=== PATIENT | male | born 1960 | race Caucasian/White ===

== ENCOUNTER 2016-07-27 04:35 | Observation (INO) | payer OTHER ==
[2016-07-27] MEDS ORDERED: LORazepam INJ* 2 MG/ML 1 ML VIAL IM ONE (04:52)
[2016-07-27 05:41] LABS: Urine Bilirubin Negative (Negative); Urine Glucose Negative (Negative); Urine Nitrite Negative (Negative)
[2016-07-27 05:43] LABS: Hematocrit 40 % (42-52); Mean Corpuscular HGB Conc 35 g/dl (31-36); Mean Corpuscular Hemoglobin 31 pg (27-31); Mean Corpuscular Volume 89 fL (80-94); Mean Platelet Volume 8 um3 (7.4-10.4); Red Blood Count 4.51 10^6/ul (4.0-5.4); Red Cell Distribution Width 13 % (10.5-15); White Blood Count 8.2 10^3/ul (3.5-10.8)
[2016-07-27 06:07] LABS: ALT 16 U/L (7-52); AST 16 U/L (13-39); Albumin 3.8 g/dL (3.2-5.2); Alkaline Phosphatase 61 U/L (34-104); Anion Gap 9 mmol/L (2-11); BUN/Creatinine Ratio 17.9 (8-20); Blood Urea Nitrogen 20 mg/dL (6-24); CO2 Carbon Dioxide 26 mmol/L (22-32); Calcium 9.7 mg/dL (8.6-10.3); Chloride 91 mmol/L (101-111); EGFR African American 87.5 (>60); EGFR Non-African American 68.1 (>60); Globulin 5.3 g/dL (2-4); Glucose 86 mg/dL (70-100); Potassium 3.6 mmol/L (3.5-5.0); Sodium 126 mmol/L (133-145); Total Protein 9.1 g/dL (6.4-8.9)
[2016-07-27 06:10] LABS: Benzodiazepine Urine Screen None Detected (None Detect)
[2016-07-27 06:20] LABS: Acetaminophen < 15 mcg/mL; Alcohol < 10 mg/dL (<10); Salicylate < 2.50 mg/dL (<30)
[2016-07-27 06:31] LABS: TSH (Thyroid Stimulating Horm) 2.25 mcIU/mL (0.34-5.60)
[2016-07-27] MEDS ORDERED: NS 0.9% 1000 ML* 1,000 ML IV SCH (08:00)
--- NOTE | 2016-07-27 08:38 | RAD ---
HISTORY: Altered mental status COMPARISONS: January 27, 2015 TECHNIQUE: Multiple contiguous axial CT scans were obtained of the head without intravenous contrast. FINDINGS: The study is limited by patient motion artifact. HEMORRHAGE/INFARCT: There is no hemorrhage or acute infarct. MASSES/SHIFT: There is no mass or shift. EXTRA-AXIAL SPACES: There are no extra-axial fluid collections. SULCI AND VENTRICLES: The sulci and ventricles are normal in size and position for the patient's stated age. CEREBRUM: There are no focal parenchymal abnormalities. BRAINSTEM: There are no focal parenchymal abnormalities. CEREBELLUM: There are no focal parenchymal abnormalities. VESSELS: The vessels are grossly normal. PARANASAL SINUSES: The paranasal sinuses are clear. ORBITS: The orbits are unremarkable. BONES AND SOFT TISSUE: No bone or soft tissue abnormalities are noted. OTHER: None IMPRESSION: NO ACUTE INTRACRANIAL PATHOLOGY.
--- NOTE | 2016-07-27 08:39 | RAD ---
HISTORY: Altered mental status COMPARISONS: January 27, 2015 VIEWS:1: Single frontal portable view of the chest at 8:10 AM FINDINGS: LINES AND TUBES: None. CARDIOMEDIASTINAL SILHOUETTE: The cardiomediastinal silhouette is normal for portable technique. PLEURA: The costophrenic angles are sharp. No pleural abnormalities are noted. LUNG PARENCHYMA: The lungs are clear. ABDOMEN: The upper abdomen is clear. There is no subphrenic gas. BONES AND SOFT TISSUES: No bone or soft tissue abnormalities are noted. IMPRESSION: NO ACTIVE CARDIOPULMONARY DISEASE.
--- NOTE | 2016-07-27 09:12 | ED ---
Lowell Zhang Adam, scribed for Toro Robledo MD on 07/27/16 at 0722 . Progress - Progress Note Progress Note: This patient was signed out to me by Dr. Johnson at 07:00. Apparently this pt has bipolar. He has been abusing dextromethorphan. They spoke with poison control and they requested to observe the pt for approximately 6 hours. Pt was given Ativan. 07:20 - Pt is currently somnolent. He is unable to tell us any history. VITAL SIGNS: Reviewed. GENERAL: Patient is a well developed and nourished who is very lethargic lying comfortable in the stretcher. He is unable to answer most question, heaver he wakes up in verbal stimulation, he seems to be very confused. Patient is not in any acute respiratory distress. HEAD AND FACE: No signs of trauma. No ecchymosis, hematomas or skull depressions. EYES: PERRLA, EOMI x 2 EARS: Hearing grossly intact. MOUTH: Oropharynx within normal limits. NECK: Supple, trachea is midline, no adenopathy, no JVD, no carotid bruit, no c- spine tenderness, neck with full ROM. No meningeal signs, no Kernig's or brudzinskis signs. CHEST: Symmetric, no tenderness at palpation LUNGS: Clear to auscultation bilaterally. No wheezing or crackles. CVS: Regular rate and rhythm, S1 and S2 present, no murmurs or gallops appreciated. ABDOMEN: Soft, non-tender. No signs of distention. No rebound no guarding, and no masses palpated. Bowel sounds are normal. EXTREMITIES: FROM in all major joints, no edema, no cyanosis or clubbing. NEURO: Alert not oriented. GCS 14 SKIN: Dry and warm CHEST X-RAY - IMPRESSION: NO ACTIVE CARDIOPULMONARY DISEASE. CT BRAIN - IMPRESSION: NO ACUTE INTRACRANIAL PATHOLOGY. Assessment and Plan This patient was signed out to me by Dr. Johnson at 07:00. He reports that the patient has been taking DExtromethorphan and it seems that he overdose in this substance. They have spoken to poison control and recommend observation for 6 hours and discharge patient home. However, when I examined the patient and review his blood work he is AMS and acute hyponatremia. Blood test are found within normal limits except for NA 126. CL 91. UA is negative, Utox positive for Phencyclidine and Cannabinoids. CXR : No acute cardiopulmonary disease. Head CT IMPRESSION: NO ACUTE INTRACRANIAL PATHOLOGY. EKG: NSR at 71 BPM w/o STEMI In the ED course he was given Ativan by Dr. Johnson. When I when to see patient he seems very confused, open his eyes in verbal stimulation but unable to answer any questions. Physical exam as above. Patient is hyponatremic, he was given Ativan and positive for Phencyclidine and Cannabinoids which possible contributed to his AMS. I discuss my physical exam, findings and test results with Dr. Cosme from the hospitalist services and she agrees to admit patient to his services. Patient is hemodynamically stable alert but not oriented. FINAL IMPRESSION: 1- Acute Mental Status Changes 2- Symptomatic Hyponatremia 3: Overdose 4: Polysubstance abuse. - EKG/XRAY/CT EKG: NSR - 08:02. [address] elevations. Course/Dx - Diagnoses Provider Diagnoses: 1- Acute Mental Status Changes, Symptomatic hyponatremia, Polysubstance abuse The documentation as recorded by the Lowell london Adam accurately reflects the service I personally performed and the decisions made by me, Toro Robledo MD.
[2016-07-27 15:38] LABS: BUN/Creatinine Ratio 16.5 (8-20); Calcium 9.3 mg/dL (8.6-10.3); EGFR African American 96.4 (>60); Potassium 3.8 mmol/L (3.5-5.0)
[2016-07-27] MEDS: NS 0.9% 1000 ML* 1,000 ML IV ONE (16:31)
--- NOTE | 2016-07-27 20:17 | HP ---
HOSPITAL MEDICINE HISTORY AND PHYSICAL: DATE OF ADMISSION: 07/27/16 PRIMARY CARE PHYSICIAN: Dr. Beatriz Tavarez. ATTENDING PHYSICIAN: Dr. Miquel Cosme* (dictation provided by Lianna Church NP) CHIEF COMPLAINT: Taking too much dextromethorphan and chlorpheniramine. HISTORY OF PRESENT ILLNESS: Mr. Lane is a 56-year-old male well with multiple inpatient psychiatric unit admissions for polysubstance abuse, depression, borderline personality disorder, and antisocial personality disorder with paranoid thoughts. Mr. Lane presented to the emergency room today, concerned that he was overly inebriated after taking 480 mg of dextromethorphan and 64 mg of chlorpheniramine. The patient reported hallucinations, slurred speech, and paranoia. He did not report any suicidal intention, but that he was trying to apparently get high. Per the report, the patient took the pills at 1700 hours on 07/26/16. In the emergency room, the patient was slow to respond, but was oriented x4. Mr. Lane was noted to have a low sodium at 126 on arrival. The rest of his labs was unremarkable except for the presence of phencyclidine and cannabinoids in his toxicology screen. His vital signs are stable. The Poison Control Center was called and they recommended that the patient be monitored for at least 6 hours for medication overdose. PAST MEDICAL HISTORY: 1. History of borderline personality disorder. 2. Polysubstance abuse. 3. Depression. 4. Antisocial personality disorder. MEDICATIONS: The patient is unable to provide medication list. Last medications known as of 01/04/16 were: 1. Aripiprazole 5 mg p.o. at bedtime. 2. Trazodone 150 mg p.o. at bedtime. ALLERGIES: No known drug allergies. FAMILY HISTORY: Unobtainable. SOCIAL HISTORY: Report of polysubstance abuse per the record. The patient is not able to participate adequately with my exam to provide me more information on this, although he does state he is not a smoker. REVIEW OF SYSTEMS: Unobtainable. PHYSICAL EXAMINATION GENERAL: Mr. Lane is lying in bed. He is in no acute distress. VITAL SIGNS: Temperature 99.2, heart rate 72, respiratory rate 14, O2 saturation 98% on room air, blood pressure 139/88. LUNGS: Clear to auscultation bilaterally with no accessory muscle use and good aeration. HEART: S1, S2. No murmur, rub, or gallop, and regular. ABDOMEN: Soft, nontender with bowel sounds positive x4. EXTREMITIES: No cyanosis or edema. NEURO: He appears drowsy, but he awakens to his name. He moves all extremities equally. There is no facial asymmetry or focal weakness. Extraocular movements are intact. The patient is not able to state where he is. When I then asked him his name, he states "school:, but then is able to state that his name is Kurtis Lane. He follows all commands. SKIN: Intact. DIAGNOSTIC STUDIES/LAB DATA: WBC 8.2, hemoglobin 14.0, hematocrit 40, platelet count 191. Sodium 126, potassium 3.6, chloride 91, serum bicarbonate 26, BUN 20, creatinine 1.12, glucose 86. TSH 2.25. Urine shows no evidence of infection. Tox screen is positive for phencyclidine and cannabinoids. Chest x-ray shows no acute intrathoracic process and brain CT is negative as well. ASSESSMENT AND PLAN: Mr. Lane is a 56-year-old male with a past medical history of polysubstance abuse, antisocial personality, and borderline personality disorder, who presents today to the hospital with complaint that he has taken a large amount of dextromethorphan and chlorpheniramine. Plans are for observation in the hospital overnight as the patient continues to have altered mental status and a low sodium at 126. Plans are as follows: 1. Hyponatremia: The patient has been provided with normal saline since his arrival. I am going to recheck his sodium at 1500 hours and then again in the a.m. We will adjust his IV fluids as needed based on clinical course. 2. Altered mental status. The patient is alert. I suspect his mental status changes are related to the dextromethorphan and chlorpheniramine. Again, Poison Control was contacted and they only recommended a 6-hour observation related to the drug overdose. We will continue to monitor him closely though given his concomitant low sodium. 3. DVT prophylaxis. Early mobility. DISPOSITION: To telemetry floor. TIME SPENT: Approximately 60 minutes was spent on the admission of this patient , more than half time spent with the patient at the bedtime reviewing the events leading up to this hospitalization, performing the physical examination, and reviewing my plan of care. LIANNA CHURCH NP CC: Dr. Beatriz Tavarez* [id number]/[facility] #: [id number] [facility] HOSPITALJayden
[2016-07-27] MEDS: NS 0.9% 1000 ML* 1,000 ML IV SCH (21:16)
[2016-07-28 05:09] LABS: BUN/Creatinine Ratio 17.1 (8-20); Calcium 9.1 mg/dL (8.6-10.3); EGFR African American 94.3 (>60); EGFR Non-African American 73.3 (>60); Potassium 4.1 mmol/L (3.5-5.0)
[2016-07-28] MEDS: NS 0.9% 1000 ML* 1,000 ML IV SCH (05:59)
[2016-07-28] MEDS: NS 0.9% 1000 ML* 1,000 ML IV ONE (10:26)
[2016-07-28 15:22] VITALS: BP 142/93
--- NOTE | 2016-07-28 16:13 | DCNOTE ---
Subjective Date of Service: 07/28/16 Interval History: Feels well. He took an entire box of dextrometophan (16 x 30 mg) to produce a "psychedelic high". He has done this before and said it last only about 5 hours. He id not depressed--he went for 2 job interviews that day. By Tuesday AM he was feeling poorly and called 911. Objective Active Medications: Sodium Chloride (Ns 0.9% 1000 Ml*) 1,000 mls @ 100 mls/hr IV PER RATE AMANDA Last Admin: 07/28/16 05:59 Dose: 100 mls/hr Vital Signs 07/27/16 07/27/16 07/28/16 19:28 23:36 03:02 Temperature 97.9 F 97.6 F 97.7 F Pulse Rate 72 55 58 Respiratory 16 16 20 Rate Blood Pressure 143/84 130/88 131/65 (mmHg) O2 Sat by Pulse 100 99 99 Oximetry 07/28/16 07/28/16 07/28/16 07:45 08:00 11:24 Temperature 97.9 F 97.2 F Pulse Rate 60 51 Respiratory 16 16 16 Rate Blood Pressure 138/87 144/93 (mmHg) O2 Sat by Pulse 99 100 Oximetry 07/28/16 14:45 Temperature 97.7 F Pulse Rate 59 Respiratory 16 Rate Blood Pressure 142/93 (mmHg) O2 Sat by Pulse 100 Oximetry Oxygen Devices in Use Now: None Appearance: Alert, partly up in bed. In good spirits. Looks comfortable. Eyes: No Scleral Icterus Ears/Nose/Mouth/Throat: Clear Oropharnyx, Mucous Membranes Moist Respiratory: Symmetrical Chest Expansion and Respiratory Effort, Clear to Auscultation, Clear to Percussion Cardiovascular: NL Sounds; No Murmurs; No JVD, RRR, No Edema, - Skin: No Rash or Ulcers, No Nodules or Sclerosis, - Neurological: Alert and Oriented x 3, NL Sensation Result Diagrams: 07/27/16 05:05 07/28/16 04:45 Assess/Plan/Problems-Billing Assessment: - Patient Problems (1) Overdose Current Visit: Yes Status: Acute Code(s): T50.901A - POISONING BY UNSP DRUG/ MEDS/BIOL SUBST, ACCIDENTAL, INIT SNOMED Code(s): 74934912 Comment: Not clear why he had a severe reaction to 480 mg dextromehtorphan when he has used the same dose in the past. He has no idea why he was positive for phencyclidine in his urine. He understands he is taking a big risk by abusing dextromethorphan. His wrapper caser was present for the discussion. Status and Disposition: Discharge now. Fup Dr. Mu Tavarez.
--- NOTE | 2016-07-28 21:22 | ED ---
Aiden Zhang Billy, scribed for Sam Johnson MD on 07/27/16 at 0557 . Substance Abuse/Use - HPI Summary HPI Summary: Patient is a 56 year-old male coming to [facility] after he took 16 tabs of [employer] brand cold and sinus medication, ingredients which include 30mg dextromethorphan and 4mg chlorpheniramine each. He states that he does this several times a month. However, he reports that he has hallucinations which are more severe than normal, and he believes that somebody has poisoned his food/ drink. Denies any EtOH today. Denies any sleep or appetite disturbance. - History Of Current Complaint Chief Complaint: EDOverdose Stated Complaint: OVERDOSE Time Seen by Provider: 07/27/16 04:36 Hx Obtained From: Patient Onset/Duration of Drug/ETOH Abuse: Hours Ingestion History: Type/Name Of Drug - cold sinus meds Overdose Characteristics: Oral Timing Of Abuse: Intermittent Severity Initially: Moderate Severity Currently: Moderate Character: Fearful Aggravating Factor(s): Nothing Alleviating Factor(s): Nothing Associated Signs And Symptoms: Paranoid Behavior - Allergies/Home Medications Allergies/Adverse Reactions: Allergies Allergy/AdvReac Type Severity Reaction Status Date / Time No Known Allergies Allergy Verified 07/27/16 04:48 PMH/Surg Hx/FS Hx/Imm Hx Cardiovascular History: Reports: Other Cardiovascular Problems/Disorders - unspecific cardiac issues per H+P Respiratory History: Denies: Hx Asthma, Hx Chronic Bronchitis Musculoskeletal History: Reports: Hx Back Problems - spondylosis, Other Musculoskeletal History - hx of spinal stenosis Neurological History: Reports: Hx Seizures - With ETOH detox --- reports has not drank in 5 years Psychiatric History: Reports: Hx Anxiety, Hx Attention Deficit Hyperactivity Disorder, Hx Depression, Hx Inpatient Treatment, Hx Community Mental Health Tx, Hx Suicide Attempt - 1999, Hx of Violent Episodes Against Others, Hx Substance Abuse Denies: Hx Eating Disorder, Hx Panic Disorder, Hx Post Traumatic Stress Disorder, Hx Schizophrenia, Hx Bipolar Disorder, Other Psychiatric Issues/ Disorders - Immunization History Date of Tetanus Vaccine: unk Date of Influenza Vaccine: never Infectious Disease History: No Infectious Disease History: Reports: Hx Hepatitis - b- Pt reports it might be a misdx Denies: Traveled Outside the [place] in Last 30 Days - Family History Known Family History: Positive: Other - Alcohol abuse Family History: No FHx schizophrenia - Social History Alcohol Use: None Substance Use Type: Reports: Marijuana, Other Substance Use Comment - Amount & Last Used: cough syrup Smoking Status (MU): Former Smoker Type: Cigarettes Have You Smoked in the Last Year: Yes - Smokes one cigareete a few times a year- last time Dec 2014 Review of Systems Negative: Fever, Chills Negative: Erythema Negative: Sore Throat, Ear Ache Negative: Chest Pain Negative: Shortness Of Breath, Cough Negative: Abdominal Pain, Vomiting, Nausea Negative: Myalgia, Edema Negative: Rash Psychological: Other - See HPI All Other Systems Reviewed And Are Negative: Yes Physical Exam - Summary Physical Exam Summary: Constitutional: Well-developed, Well-nourished, Alert. (-) Distressed Skin: Warm, Dry HENT: Normocephalic; Atraumatic Eyes: Conjunctiva normal Neck: Musculoskeletal ROM normal neck. (-) JVD, (-) Stridor, (-) Tracheal deviation Cardio: Rhythm regular, rate normal, Heart sounds normal; Intact distal pulses; The pedal pulses are 2+ and symmetric. Radial pulses are 2+ and symmetric. (-) Murmur Pulmonary/Chest wall: Effort normal. (-) Respiratory distress, (-) Wheezes, (-) Rales Abd: Soft, (-) Tenderness, (-) Distension, (-) Guarding, (-) Rebound Musculoskeletal: (-) Edema Lymph: (-) Cervical adenopathy Neuro: Alert, Oriented x3 Psych: Mood and affect Normal Triage Information Reviewed: Yes Vital Signs On Initial Exam: Initial Vitals Temp Pulse Resp BP Pulse Ox 99.1 F 69 18 147/100 98 07/27/16 04:38 07/27/16 04:38 07/27/16 04:38 07/27/16 04:38 07/27/16 04:38 Vital Signs Reviewed: Yes - [place] Coma Scale Coma Scale Total: 15 Diagnostics - Vital Signs Vital Signs Temp Pulse Resp BP Pulse Ox 07/27/16 05:13 12 07/27/16 04:47 99.1 F 69 18 147/100 100 07/27/16 04:38 99.1 F 69 18 147/100 98 - Laboratory Lab Results: Lab Results 07/27/16 07/27/16 07/27/16 Range/Units 05:05 05:05 05:05 WBC 8.2 (3.5-10.8) 10^3/ul RBC 4.51 (4.0-5.4) 10^6/ul Hgb 14.0 (14.0-18.0) g/dl Hct 40 L (42-52) % MCV 89 (80-94) fL MCH 31 (27-31) pg MCHC 35 (31-36) g/dl RDW 13 (10.5-15) % Plt Count 191 (150-450) 10^3/ul MPV 8 (7.4-10.4) um3 Neut % (Auto) 75.4 (38-83) % Lymph % (Auto) 15.1 L (25-47) % [place] % (Auto) 8.6 (1-9) % Eos % (Auto) 0.5 (0-6) % Baso % (Auto) 0.4 (0-2) % Absolute Neuts (auto) 6.2 (1.5-7.7) 10^3/ul Absolute Lymphs (auto) 1.2 (1.0-4.8) 10^3/ul Absolute Monos (auto) 0.7 (0-0.8) 10^3/ul Absolute Eos (auto) 0 (0-0.6) 10^3/ul Absolute Basos (auto) 0 (0-0.2) 10^3/ul Absolute Nucleated RBC 0.01 10^3/ul Nucleated RBC % 0.1 Sodium 126 L (133-145) mmol/L Potassium 3.6 (3.5-5.0) mmol/L Chloride 91 L (101-111) mmol/L Carbon Dioxide 26 (22-32) mmol/L Anion Gap 9 (2-11) mmol/L BUN 20 (6-24) mg/dL Creatinine 1.12 (0.67-1.17) mg/dL Est GFR ( Amer) 87.5 (>60) Est GFR (Non-Af Amer) 68.1 (>60) BUN/Creatinine Ratio 17.9 (8-20) Glucose 86 (70-100) mg/dL Calcium 9.7 (8.6-10.3) mg/dL Total Bilirubin 0.80 (0.2-1.0) mg/dL AST 16 (13-39) U/L ALT 16 (7-52) U/L Alkaline Phosphatase 61 (34-104) U/L Total Protein 9.1 H (6.4-8.9) g/dL Albumin 3.8 (3.2-5.2) g/dL Globulin 5.3 H (2-4) g/dL Albumin/Globulin Ratio 0.7 L (1-3) TSH 2.25 (0.34-5.60) mcIU/mL Urine Color Yellow Urine Appearance Clear Urine pH 6.0 (5-9) Ur Specific [place] 1.015 (1.010-1.030) Urine Protein Negative (Negative) Urine Ketones Trace H (Negative) Urine Blood Negative (Negative) Urine Nitrate Negative (Negative) Urine Bilirubin Negative (Negative) Urine Urobilinogen Negative (Negative) Ur Leukocyte Esterase Negative (Negative) Urine Glucose Negative (Negative) Urine Ascorbic Acid * H (Negative) Salicylates < 2.50 (<30) mg/dL Urine Opiates Screen (None Detect) Acetaminophen < 15 mcg/mL Ur Barbiturates Screen (None Detect) Ur Phencyclidine Scrn (None Detect) Ur Amphetamines Screen (None Detect) U Benzodiazepines Scrn (None Detect) Urine Cocaine Screen (None Detect) U Cannabinoids Screen (None Detect) Serum Alcohol < 10 (<10) mg/dL 07/27/16 Range/Units 05:05 WBC (3.5-10.8) 10^3/ul RBC (4.0-5.4) 10^6/ul Hgb (14.0-18.0) g/dl Hct (42-52) % MCV (80-94) fL MCH (27-31) pg MCHC (31-36) g/dl RDW (10.5-15) % Plt Count (150-450) 10^3/ul MPV (7.4-10.4) um3 Neut % (Auto) (38-83) % Lymph % (Auto) (25-47) % [place] % (Auto) (1-9) % Eos % (Auto) (0-6) % Baso % (Auto) (0-2) % Absolute Neuts (auto) (1.5-7.7) 10^3/ul Absolute Lymphs (auto) (1.0-4.8) 10^3/ul Absolute Monos (auto) (0-0.8) 10^3/ul Absolute Eos (auto) (0-0.6) 10^3/ul Absolute Basos (auto) (0-0.2) 10^3/ul Absolute Nucleated RBC 10^3/ul Nucleated RBC % Sodium (133-145) mmol/L Potassium (3.5-5.0) mmol/L Chloride (101-111) mmol/L Carbon Dioxide (22-32) mmol/L Anion Gap (2-11) mmol/L BUN (6-24) mg/dL Creatinine (0.67-1.17) mg/dL Est GFR ( Amer) (>60) Est GFR (Non-Af Amer) (>60) BUN/Creatinine Ratio (8-20) Glucose (70-100) mg/dL Calcium (8.6-10.3) mg/dL Total Bilirubin (0.2-1.0) mg/dL AST (13-39) U/L ALT (7-52) U/L Alkaline Phosphatase (34-104) U/L Total Protein (6.4-8.9) g/dL Albumin (3.2-5.2) g/dL Globulin (2-4) g/dL Albumin/Globulin Ratio (1-3) TSH (0.34-5.60) mcIU/mL Urine Color Urine Appearance Urine pH (5-9) Ur Specific [place] (1.010-1.030) Urine Protein (Negative) Urine Ketones (Negative) Urine Blood (Negative) Urine Nitrate (Negative) Urine Bilirubin (Negative) Urine Urobilinogen (Negative) Ur Leukocyte Esterase (Negative) Urine Glucose (Negative) Urine Ascorbic Acid (Negative) Salicylates (<30) mg/dL Urine Opiates Screen None detected (None Detect) Acetaminophen mcg/mL Ur Barbiturates Screen None detected (None Detect) Ur Phencyclidine Scrn Presumptive positive H (None Detect) Ur Amphetamines Screen None detected (None Detect) U Benzodiazepines Scrn None detected (None Detect) Urine Cocaine Screen None detected (None Detect) U Cannabinoids Screen Presumptive positive H (None Detect) Serum Alcohol (<10) mg/dL Result Diagrams: 07/27/16 05:05 07/28/16 04:45 Lab Statement: Any lab studies that have been ordered have been reviewed, and results considered in the medical decision making process. Course/Dx - Course Assessment/Plan: 56 y/o male coming to the ED after using OTC cold medication recreationally. Signed out to ED physician at shift change pending 6-hour observation. He will likely be discharged after this observation period. - Diagnoses Provider Diagnoses: 1- Acute Mental Status Changes, Symptomatic hyponatremia, Polysubstance abuse, OVERDOSE Discharge - Discharge Plan Condition: Improved Disposition: ADMITTED TO [facility] Disposition Comment: Signed out pending 6-hour observation period. The documentation as recorded by the Aiden london Billy accurately reflects the service I personally performed and the decisions made by , Sam Johnson MD.
--- NOTE | 2016-07-30 10:36 | DS ---
DISCHARGE SUMMARY: DATE OF ADMISSION: 07/27/16 DATE OF DISCHARGE: 07/28/16 HISTORY: This 56-year-old man was brought in for altered mental status. On 07/26/16, he lynne d gone to 2 job interviews, he had lost his job a few weeks prior. He stated that he was not depres sed. He takes this kind of thing in stride. About 5:00 p.m. he decided to take 480 mg of dextromet horphan. This would be an entire box of 16, 30 mg pills. He has done this before because it is psy chedelic high. He said it usually lasts about 5 hours. However in this case, he was quite altered for over 12 hours and was not sure what was going on. He was lethargic the first day. By the day o f discharge, he was completely back to his baseline. He seemed quite engaged and normal affect. Of note, his urine toxicology screen showed phencyclidine. He has no idea how he ingested phencyclidi ne but this probably on top of the dextromethorphan and possible other drugs including 64 mg of chlo rpheniramine accounted for his altered mental status. DISCHARGE DIAGNOSIS: Overdose due to a combination of dextromethorphan, chlorpheniramine and phency clidine. DISCHARGE MEDICATIONS: None. [id number]/[facility] #: [id number]
== END 2016-07-28 17:25 | disposition home or self-care (01) ==
LOC: ED 04:35 → MEDTELE 07:50 → MED 07-28 14:48
PROVIDERS: ADMIT Internal Medicine; ATTEND Internal Medicine
DX: T48.3X1A Poisoning by antitussives, accidental (unintentional), initial encounter (principal); T45.0X1A Poisoning by antiallergic and antiemetic drugs, accidental (unintentional), initial encounter; Y92.9 Unspecified place or not applicable; E87.1 Hypo-osmolality and hyponatremia; I44.4 Left anterior fascicular block; F60.3 Borderline personality disorder; F32.9 Major depressive disorder, single episode, unspecified; Z79.899 Other long term (current) drug therapy; Z87.891 Personal history of nicotine dependence
CPT/HCPCS: 36415; 70450; 71010; 80048; 80053; 80307; 80320; 80329; 81003; 84300; 84443; 85025; 93005; 96361; 96374; 99284; G0378; G0480; J2060

== ENCOUNTER 2016-11-08 07:20 | Emergency (ER) | payer OTHER ==
[2016-11-08 08:40] VITALS: BP 102/64
[2016-11-08] MEDS ORDERED: Ketorolac INJ* 60 MG/2 ML VIAL IM ONE (08:45)
--- NOTE | 2016-11-09 08:26 | ED ---
Back Pain - HPI Summary HPI Summary: Patient presents with acute onset back pain x 2 days ago with no injury or trauma. Hx of back pain. He states he was unable to get through work d/t pain. He is ambulating well. Denies bladder or bowel dysfunction. Pain is 5/10 , intermittent and better with position. Pain is located over L4-L5 and sharp with no radiation to the bilateral legs. Denies numbness, tingling, temperature or color changes to the area. Thorough physical exam was performed, focusing on thoracic and lumbar special tests and ROM. Due to patient pain around injury, physical exam was limited. Limited ROM. Flip Test negative. Straight leg raise positive. Kernig test positive. Negative Babinksi. Hip flexion and extension, knee extension, dorsiflexion, great toe extension and plantar flexion intact. Rotating at hips limited d/t pain. Nerve roots L4-S2 reflexes intact. L1-S2 nerve root sensory intact. No saddle anesthesia. Gait normal. - History of Current Complaint Chief Complaint: EDBackInjuryPain Stated Complaint: BACK PAIN Time Seen by Provider: 11/08/16 08:36 Hx Obtained From: Patient Onset/Duration: Sudden Onset Onset/Duration: Started Hours Ago Timing: Constant Back Pain Location: Is Discrete @ - low back Severity Initially: Moderate Severity Currently: Moderate Pain Intensity: 2 Pain Scale Used: 0-10 Numeric Character: Sharp Aggravating Symptom(s): Movement, Lifting Alleviating Symptom(s): Rest, Position Associated Signs And Symptoms: Positive: Negative Related History: Previous Back Injury - Risk Factors AAA Risk Factors: Negative TAD Risk Factors: Negative Cauda Equina Risk Factors: Negative Epidural Abscess Risk Factors: Negative - Allergies/Home Medications Allergies/Adverse Reactions: Allergies Allergy/AdvReac Type Severity Reaction Status Date / Time No Known Allergies Allergy Verified 11/08/16 07:33 PMH/Surg Hx/FS Hx/Imm Hx Previously Healthy: Yes Cardiovascular History: Reports: Other Cardiovascular Problems/Disorders - unspecific cardiac issues per H+P Respiratory History: Denies: Hx Asthma, Hx Chronic Bronchitis Musculoskeletal History: Reports: Hx Back Problems - spondylosis, Other Musculoskeletal History - hx of spinal stenosis Sensory History: Denies: Hx Contacts or Glasses, Hx Hearing Aid Opthamlomology History: Denies: Hx Contacts or Glasses Neurological History: Reports: Hx Seizures - With ETOH detox --- reports has not drank in 5 years Psychiatric History: Reports: Hx Anxiety, Hx Attention Deficit Hyperactivity Disorder, Hx Depression, Hx Inpatient Treatment, Hx Community Mental Health Tx, Hx Suicide Attempt - 1999, Hx of Violent Episodes Against Others, Hx Substance Abuse Denies: Hx Eating Disorder, Hx Panic Disorder, Hx Post Traumatic Stress Disorder, Hx Schizophrenia, Hx Bipolar Disorder, Other Psychiatric Issues/ Disorders - Immunization History Date of Tetanus Vaccine: unk Date of Influenza Vaccine: never Infectious Disease History: No Infectious Disease History: Reports: Hx Hepatitis - b- Pt reports it might be a misdx Denies: Traveled Outside the [place] in Last 30 Days - Family History Known Family History: Positive: Other - Alcohol abuse Family History: No FHx schizophrenia - Social History Occupation: Employed Full-time Lives: With Family Alcohol Use: None Hx Substance Use: Yes Substance Use Type: Reports: Marijuana, Other Substance Use Comment - Amount & Last Used: cough syrup Hx Tobacco Use: Yes Smoking Status (MU): Former Smoker Type: Cigarettes Have You Smoked in the Last Year: Yes - Smokes one cigareete a few times a year- last time Dec 2014 Review of Systems Constitutional: Negative Eyes: Negative Cardiovascular: Negative Respiratory: Negative Positive: no symptoms reported, see HPI Positive: Arthralgia, Myalgia Skin: Negative Neurological: Negative All Other Systems Reviewed And Are Negative: Yes Physical Exam Triage Information Reviewed: Yes Vital Signs On Initial Exam: Initial Vitals Temp Pulse Resp BP Pulse Ox 97.8 F 67 16 122/67 99 11/08/16 07:27 11/08/16 07:27 11/08/16 07:27 11/08/16 07:27 11/08/16 07:27 Vital Signs Reviewed: Yes Appearance: Positive: Well-Appearing, No Pain Distress Skin: Positive: Warm, Skin Color Reflects Adequate Perfusion Eyes: Positive: EOMI, VASYL, Conjunctiva Clear Neck: Positive: Supple, No Lymphadenopathy Respiratory/Lung Sounds: Positive: Clear to Auscultation, Breath Sounds Present Cardiovascular: Positive: Normal, RRR Musculoskeletal: Positive: Pain @ - midline low back Neurological: Positive: Speech Normal Psychiatric: Positive: Normal AVPU Assessment: Alert - [place] Coma Scale Coma Scale Total: 15 Diagnostics - Vital Signs Vital Signs Temp Pulse Resp BP Pulse Ox 11/08/16 09:05 97.8 F 72 15 102/64 11/08/16 08:30 72 102/64 99 11/08/16 08:00 71 104/67 100 11/08/16 07:35 72 99 11/08/16 07:33 115/74 11/08/16 07:32 97.8 F 73 16 115/74 100 11/08/16 07:27 97.8 F 67 16 122/67 99 - Laboratory Lab Statement: Any lab studies that have been ordered have been reviewed, and results considered in the medical decision making process. Back Pain Course/Dx - Course Course Of Treatment: D/t no acute injury with hx of back pain, patient is encouraged Ibuprofen 600mg three times daily with meals for pain. Return precautions given. Educated patient regarding back injuries and healing time and the need for further imaging if discomfort is present for > 6 weeks. Given pain management and muscle relaxers for relief of pain. Patient OK with discharge and will follow up as directed. - Diagnoses Differential Diagnosis/HQI/PQRI: Positive: Herniated Disc, Strain, Sprain Provider Diagnoses: Acute low back pain Discharge - Discharge Plan Condition: Stable Disposition: HOME Prescriptions: Cyclobenzaprine TAB* [Flexeril TAB*] 10 mg PO BID PRN #10 tab PRN Reason: Pain Ketorolac TAB * [Toradol TAB *] 10 mg PO Q6H #16 tab Patient Education Materials: Sciatica (ED), Lower Back Exercises (ED) Forms: *Work Release Referrals: Beatriz Tavarez MD [Primary Care Provider] - Additional Instructions: Dx. Acute low back pain Flexeril: This medication is a muscle relaxant and can help relieve muscle spasms, muscle strain, or pain sensations. Flexeril can cause side effects that may impair your thinking or reactions. Be careful if you drive or do anything that requires you to be awake and alert. Avoid drinking alcohol, which can increase some of the side effects of Flexeril. Ibuprofen 600mg three times daily with meals for discomfort. Return to ED if symptoms worsen or fail to improve, notice worsening swelling, warmth or redness around the joint, develop fever, or pain is uncontrolled with OTC medications. Moist heat to the area for comfort. Warm showers or baths may improve symptoms. It is important to remain mobile as tolerated to prevent stiffening of the joints and delay healing. Follow up with your PCP. If symptoms remain for > 6 weeks, please seek special medical attention from an orthopedic physician.
== END 2016-11-08 09:06 | disposition home or self-care (01) ==
LOC: ED 07:20
DX: M54.5 Low back pain (principal); I25.10 Atherosclerotic heart disease of native coronary artery without angina pectoris; F41.9 Anxiety disorder, unspecified; F32.9 Major depressive disorder, single episode, unspecified; F90.9 Attention-deficit hyperactivity disorder, unspecified type; Z87.891 Personal history of nicotine dependence
CPT/HCPCS: 96372; 99282; J1885

== ENCOUNTER 2016-12-01 20:12 | Emergency (ER) | payer OTHER ==
[2016-12-01] MEDS ORDERED: Ondansetron ODT TAB* 4 MG PO ONE (20:30)
--- NOTE | 2016-12-01 22:09 | ED ---
GI/ HPI - HPI Summary HPI Summary: 56M presents with nausea and vomiting today. He states that his primary has been reducing his ADHD medication and he needs to stimulants. He states he has been trying this stimulant supplement but he has not been following the instruction and has been taking more than the recommended dosage in this. He denies any chest pain, SOB, or abdominal pain. He states that he feels good but at the same time feels exhausted. He states he has not been sleeping. The product is called Mixpo, it is a mood enhancement and energy booster with a high caffeine content, also contains synephrine HCL. He is requesting food on exam although says has not been earning much as doesn' t feel hungry. - History of Current Complaint Chief Complaint: EDNauseaVomitDiarrh Time Seen by Provider: 12/01/16 20:18 Stated Complaint: NAUSEA/VOMITING Pain Intensity: 0 - Additional Pertinent History Primary Care Physician: KRISTINA - Allergy/Home Medications Allergies/Adverse Reactions: Allergies Allergy/AdvReac Type Severity Reaction Status Date / Time No Known Allergies Allergy Verified 11/08/16 07:33 PMH/Surg Hx/FS Hx/Imm Hx Cardiovascular History: Reports: Other Cardiovascular Problems/Disorders - unspecific cardiac issues per H+P Respiratory History: Denies: Hx Asthma, Hx Chronic Bronchitis Musculoskeletal History: Reports: Hx Back Problems - spondylosis, Other Musculoskeletal History - hx of spinal stenosis Sensory History: Denies: Hx Contacts or Glasses Opthamlomology History: Denies: Hx Contacts or Glasses Neurological History: Reports: Hx Seizures - With ETOH detox --- reports has not drank in 5 years Psychiatric History: Reports: Hx Anxiety, Hx Attention Deficit Hyperactivity Disorder, Hx Depression, Hx Inpatient Treatment, Hx Community Mental Health Tx, Hx Suicide Attempt - 1999, Hx of Violent Episodes Against Others, Hx Substance Abuse Denies: Hx Eating Disorder, Hx Panic Disorder, Hx Post Traumatic Stress Disorder, Hx Schizophrenia, Hx Bipolar Disorder, Other Psychiatric Issues/ Disorders - Immunization History Date of Tetanus Vaccine: unk Date of Influenza Vaccine: never Infectious Disease History: No Infectious Disease History: Reports: Hx Hepatitis - b- Pt reports it might be a misdx Denies: Traveled Outside the [place] in Last 30 Days - Family History Known Family History: Positive: Other - Alcohol abuse Family History: No FHx schizophrenia - Social History Alcohol Use: None Hx Substance Use: Yes Substance Use Type: Reports: Marijuana, Other Substance Use Comment - Amount & Last Used: cough syrup Hx Tobacco Use: Yes Smoking Status (MU): Former Smoker Type: Cigarettes Have You Smoked in the Last Year: Yes - Smokes one cigareete a few times a year- last time Dec 2014 Review of Systems Negative: Fever Negative: Chest Pain Negative: Shortness Of Breath Positive: Vomiting, Nausea. Negative: Abdominal Pain, Diarrhea All Other Systems Reviewed And Are Negative: Yes Physical Exam Triage Information Reviewed: Yes Vital Signs On Initial Exam: Initial Vitals Temp Pulse Resp BP Pulse Ox 97.9 F 84 18 129/83 97 12/01/16 20:13 12/01/16 20:13 12/01/16 20:13 12/01/16 20:13 12/01/16 20:13 Vital Signs Reviewed: Yes Appearance: Positive: Well-Appearing Skin: Positive: Warm, Dry Head/Face: Positive: Normal Head/Face Inspection Eyes: Positive: EOMI, VASYL, Conjunctiva Clear, Other: - dilated pupils that are still reactive ENT: Positive: Normal ENT inspection, Pharynx normal, TMs normal Respiratory/Lung Sounds: Positive: Clear to Auscultation, Breath Sounds Present Cardiovascular: Positive: Normal, RRR Abdomen Description: Positive: Nontender, Soft Bowel Sounds: Positive: Present - Elie Coma Scale Coma Scale Total: 15 Diagnostics - Vital Signs Vital Signs Temp Pulse Resp BP Pulse Ox 12/01/16 20:13 97.9 F 84 18 129/83 97 - Laboratory Lab Statement: Any lab studies that have been ordered have been reviewed, and results considered in the medical decision making process. GIGU Course/Dx - Course Course Of Treatment: 56M presents with nausea and vomiting today. He states that his primary has been reducing his ADHD medication and he needs to stimulants. He states he has been trying this stimulant supplement but he has not been following the instruction and has been taking more than the recommended dosage in this. He denies any chest pain, SOB, or abdominal pain. He states that he feels good but at the same time feels exhausted. He states he has not been sleeping. The product is called red Lacey, it is a mood enhancement and energy booster with a high caffeine content, also contains synephrine HCL. He is requesting food on exam although says has not been earning much as doesn't feel hungry. on exam RRR lungs CTA. abdomen soft nontender. gave dose of zofran and patient able to tolerate food. denies any cardiac history. warned if develop chest pain or SOB to return as did have high level of caffeine but did not go cardiac workup at this time as decline any symptoms. patient understands and agrees with plan. - Diagnoses Differential Diagnoses - Male: Gastroenteritis (Bacterial), Vomiting, Other - caffeine overdose Provider Diagnoses: Nausea and vomiting Discharge - Discharge Plan Condition: Good Disposition: HOME Referrals: Beatriz Tavarez MD [Primary Care Provider] - Additional Instructions: Stop supplement Follow up with primary Return to ED if develop any chest pain or any new or worsening symptoms
[2016-12-01 23:24] VITALS: BP 134/76
== END 2016-12-01 23:23 | disposition home or self-care (01) ==
LOC: ED 20:12
DX: R11.2 Nausea with vomiting, unspecified (principal); Z87.891 Personal history of nicotine dependence
CPT/HCPCS: 99282; A9270-GY

== ENCOUNTER 2017-03-09 23:19 | Emergency (ER) | payer OTHER ==
[2017-03-10] MEDS ORDERED: Senna TAB PO ONE (00:50)
--- NOTE | 2017-03-10 00:50 | ED ---
Abdominal Pain/Male - HPI Summary HPI Summary: 56M presents with cramp like abdominal pain for 2 hours. The pain started after he ate dinner. He felt bloated. It has since resolved. He states feels like constipation has had in the past. He takes doculax occasionally. He states had two normal BM today. He denies any nausea or vomiting. He denies any previous abdominal surgeries. He denies any blood in his stool. He denies any fever. He denies any chest pain or SOB. He denies any dysuria. - History of Current Complaint Chief Complaint: EDAbdPain Stated Complaint: ABD PAIN Time Seen by Provider: 03/10/17 00:00 Pain Intensity: 0 - Allergies/Home Medications Allergies/Adverse Reactions: Allergies Allergy/AdvReac Type Severity Reaction Status Date / Time No Known Allergies Allergy Verified 11/08/16 07:33 PMH/Surg Hx/FS Hx/Imm Hx Cardiovascular History: Reports: Other Cardiovascular Problems/Disorders - unspecific cardiac issues per H+P Respiratory History: Denies: Hx Asthma, Hx Chronic Bronchitis Musculoskeletal History: Reports: Hx Back Problems - spondylosis, Other Musculoskeletal History - hx of spinal stenosis Sensory History: Denies: Hx Contacts or Glasses Opthamlomology History: Denies: Hx Contacts or Glasses Neurological History: Reports: Hx Seizures - With ETOH detox --- reports has not drank in 5 years Psychiatric History: Reports: Hx Anxiety, Hx Attention Deficit Hyperactivity Disorder, Hx Depression, Hx Inpatient Treatment, Hx Community Mental Health Tx, Hx Suicide Attempt - 1999, Hx of Violent Episodes Against Others, Hx Substance Abuse Denies: Hx Eating Disorder, Hx Panic Disorder, Hx Post Traumatic Stress Disorder, Hx Schizophrenia, Hx Bipolar Disorder, Other Psychiatric Issues/ Disorders - Immunization History Date of Tetanus Vaccine: unk Date of Influenza Vaccine: never Infectious Disease History: No Infectious Disease History: Reports: Hx Hepatitis - b- Pt reports it might be a misdx Denies: Traveled Outside the [place] in Last 30 Days - Family History Known Family History: Positive: Other - Alcohol abuse Family History: No FHx schizophrenia - Social History Alcohol Use: None Hx Substance Use: Yes Substance Use Type: Reports: Marijuana, Other Substance Use Comment - Amount & Last Used: cough syrup Hx Tobacco Use: Yes Smoking Status (MU): Former Smoker Type: Cigarettes Have You Smoked in the Last Year: Yes - Smokes one cigareete a few times a year- last time Dec 2014 Review of Systems Negative: Fever Negative: Chest Pain Negative: Shortness Of Breath Positive: Abdominal Pain All Other Systems Reviewed And Are Negative: Yes Physical Exam Triage Information Reviewed: Yes Vital Signs On Initial Exam: Initial Vitals Temp Pulse Resp BP Pulse Ox 99.1 F 98 18 151/86 98 03/09/17 23:21 03/09/17 23:21 03/09/17 23:21 03/09/17 23:21 03/09/17 23:21 Vital Signs Reviewed: Yes Appearance: Positive: Well-Appearing Skin: Positive: Warm, Dry Head/Face: Positive: Normal Head/Face Inspection Eyes: Positive: Normal, Conjunctiva Clear Respiratory/Lung Sounds: Positive: Clear to Auscultation, Breath Sounds Present Cardiovascular: Positive: Normal, RRR Abdomen Description: Positive: Nontender, Soft Bowel Sounds: Positive: Present Musculoskeletal: Positive: Normal Neurological: Positive: Normal - [place]ie Coma Scale Coma Scale Total: 15 Diagnostics - Vital Signs Vital Signs Temp Pulse Resp BP Pulse Ox 03/09/17 23:21 99.1 F 98 18 151/86 98 - Laboratory Lab Statement: Any lab studies that have been ordered have been reviewed, and results considered in the medical decision making process. - Radiology abd Xray Interpretation: No Acute Changes - stool present Radiology Interpretation Completed By: ED Physician Abdominal Pain Fem Course/Dx - Course Course Of Treatment: 56M presents with cramp like abdominal pain for 2 hours. The pain started after he ate dinner. He felt bloated. It has since resolved. He states feels like constipation has had in the past. He takes doculax occasionally. He states had two normal BM today. He denies any nausea or vomiting. He denies any previous abdominal surgeries. He denies any blood in his stool. He denies any fever. He denies any chest pain or SOB. He denies any dysuria. on exam abdomen soft nontender. abd xray shows stool. will treat with senna. abdomen exam before discharge soft nontender. patient understand and agrees with plan. - Diagnoses Differential Diagnosis/HQI/PQRI: Bowel Obstruction, Constipation, Urinary Tract Infection Provider Diagnoses: Abdominal pain Discharge - Discharge Plan Condition: Good Disposition: HOME Prescriptions: Senna TAB* [Senokot TAB*] 1 tab PO DAILY #14 tab Patient Education Materials: Constipation (ED) Referrals: Beatriz Tavarez MD [Primary Care Provider] - Additional Instructions: Take senna once a day for constipation Follow up with primary within 7 days Return to ED if develop any new or worsening symptoms
[2017-03-10 01:00] VITALS: BP 149/99
--- NOTE | 2017-03-10 09:01 | RAD ---
INDICATION: Subjective abdominal distention and pain. COMPARISON: None TECHNIQUE: Supine and upright views of the abdomen were obtained. FINDINGS: The small bowel and colon appear nondistended. Stool is seen throughout the entire length of the colon. No free intraperitoneal air is seen. No grossly abnormal or pathologic appearing calcifications are noted. Visualized bones are within normal limits for the patient's age. IMPRESSION: Stool seen throughout the entire length of the nonpathologically dilated: Is noted. Please correlate to signs and symptoms of constipation.
== END 2017-03-10 01:02 | disposition home or self-care (01) ==
LOC: ED 23:19
DX: R10.9 Unspecified abdominal pain (principal); Z87.891 Personal history of nicotine dependence
CPT/HCPCS: 74020; 99282; A9270-GY

== ENCOUNTER 2017-06-03 21:37 | Emergency (ER) | payer MEDICAID ==
--- OUTSIDE RECORDS SUMMARY | 2017-06-03 22:06 | XMS REPORT ---
:1960 External Reference #:[id number] Author Organization [facility] Address [address] [place] [address] Phone [phone] Care Team Providers Name Role Phone Beatriz Tavarez M.D. Care Team Information Side Panel Padder Unavailable Beatriz Tavarez M.D. Primary Care Physician Unavailable Payers Type Date Identification Numbers Payment Provider Subscriber Medicaid Policy Number: [id number] [facility] [address] PayID: [id number] [address] [address] [place] [address] Problems Date Description Provider Status Onset: 10/15/2014 Attention deficit hyperactivity Beatriz Tavarez M.D. Active disorder Onset: 10/15/2014 Anxiety state Beatriz Tavarez M.D. Active Onset: 11/26/2014 Chronic type B viral hepatitis Beatriz Tavarez M.D. Active Onset: 12/03/2014 Spinal stenosis in cervical region Beatriz Tavarez M.D. Active Onset: 12/06/2016 Cannabis abuse Beatriz Tavarez M.D. 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 Active Onset: 10/15/2014 Psychoactive substance-induced organic Beatriz Tavarez M.D. Resolved mental disorder Resolved: 12/03/2014 Onset: 10/15/2014 Drug-induced delusional disorder Beatriz Tavarez M.D. Resolved Resolved: 12/03/2014 Onset: 10/15/2014 Narcotic drug user Beatriz Tavarez M.D. Resolved Resolved: 12/06/2016 Onset: 01/06/2017 Elevated blood-pressure reading without Beatriz Tavarez M.D. Resolved diagnosis of hypertension Resolved: 01/27/2017 Family History Date Family Member(s) Problem(s) Comments Father due to Brain Tumor () - 62 yo Mother Arthritis Children 2 First Daughter Unremarkable Second Daughter Unremarkable Siblings 2 First Brother Low platelets First Sister Unremarkable Paternal Grandfather due to Unknown Causes () Paternal Grandmother due to Diabetes () - 95 yo Maternal Grandfather due to Unknown Causes () Maternal Grandmother due to Unknown Causes () Social History Type Date Description Comments Marital Status Legal Status: Never Lives With Alone Occupation [employer] Cigarette Use Former Cigarette Smoker ETOH Use Denies alcohol use ETOH Use Recovered alcoholic 4 yrs sober October 2010 Smoking Patient is a former smoker Recreational Drug Use Marijuana Daily Caffeine Consumes on average 5-10 cups of coffee per day Seat Belt/Car Seat Always uses seat belt Allergies, Adverse Reactions, Alerts Date Description Reaction Status Severity Comments 08/28/2014 NKDA active Medications Medication Date Status Form Strength Qnty SIG Indications Ordering Provider Vyvanse Active Capsules 30mg 60caps 2 by mouth F90.0 Beatriz 018 every day Jose Tavarez [place] Active Cream 10%-11% 50gm apply to M48.02 Beatriz Neck & 017 affected [place] Shoulder Rub area twice M.D. 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 018 daily prn with food Vyvanse Hx Capsules 40mg 30caps 1 by mouth F90.0 Beatriz 017 - every day [place], M.D. 018 Concerta Hx Tablets ER 27mg 30tabs 1 by mouth Beatriz 017 - every day [place], M.D. 017 Concerta Hx Tablets ER 27mg 30tabs 1 by mouth Beatriz 017 - every day [place], M.D. 017 Concerta Hx Tablets ER 18mg 30tabs 1 tab by Beatriz 017 - mouth [place], every day M.DCrystal 017 as needed Vyvanse Hx Capsules 40mg 30caps 1 by mouth F90.0 Beatriz 017 - every day , M.D. 017 Docusate Hx Capsules 100mg 60caps 1-2 by K59.09 Beatriz Sodium 015 - mouth , twice a M.D. 016 day as needed hard stools Abilify Hx Tablets 5mg 30tabs 1 by mouth 300.00 Beatriz 015 - every day , M.D. 015 Trazodone HCL 0 Hx Tablets 150mg 30tabs take one Angelica 000 - tablet by Pepito, mouth at Afnp-C 017 bedtime Abilify 0 Hx Tablets 5mg 1 by mouth Unknown 000 - every day, as needed 015 Strattera 0 Hx Capsules 25mg 2 by mouth Unknown 000 - twice a day 016 Vital Signs Date Vital Result Comment 05/12/2017 BP Systolic 112 mmHg BP Diastolic 70 mmHg Heart Rate 68 /min Body Temperature 98.2 F Weight 142.00 lb 01/27/2017 BP Systolic 104 mmHg BP Diastolic 72 mmHg Heart Rate 68 /min Body Temperature 97.9 F Respiratory Rate 16 /min Weight 141.00 lb 01/06/2017 BP Systolic 122 mmHg BP Diastolic 92 mmHg BP Systolic Recheck 124 mmHg BP Diastolic Recheck 90 mmHg Heart Rate 92 /min Body Temperature 96.7 F Height 67 inches 5'7" Weight 137.25 lb BMI (Body Mass Index) 21.5 kg/m2 12/06/2016 BP Systolic 100 mmHg BP Diastolic 60 mmHg Heart Rate 64 /min Body Temperature 98.2 F Respiratory Rate 16 /min Height 67 inches 5'7" Weight 140.12 lb BMI (Body Mass Index) 21.9 kg/m2 10/30/2016 BP Systolic 110 mmHg BP Diastolic 72 mmHg Heart Rate 80 /min Body Temperature 98.2 F Respiratory Rate 16 /min Height 67 inches 5'7" Weight 141.00 lb BMI (Body Mass Index) 22.1 kg/m2 04/14/2016 BP Systolic 120 mmHg BP Diastolic 70 mmHg Heart Rate 76 /min Body Temperature 99.1 F Respiratory Rate 16 /min Height 67 inches 5'7" Weight 148.00 lb BMI (Body Mass Index) 23.2 kg/m2 03/11/2015 BP Systolic 100 mmHg BP Diastolic 70 mmHg Heart Rate 80 /min Body Temperature 95.5 F Respiratory Rate 16 /min Height 67 inches 5'7" Weight 152.00 lb BMI (Body Mass Index) 23.8 kg/m2 01/28/2015 BP Systolic 124 mmHg BP Diastolic 76 mmHg Heart Rate 78 /min Body Temperature 97.5 F Respiratory Rate 16 /min Height 67 inches 5'7" Weight 149.25 lb BMI (Body Mass Index) 23.4 kg/m2 12/03/2014 BP Systolic 110 mmHg BP Diastolic 80 mmHg Heart Rate 72 /min Body Temperature 97.3 F Respiratory Rate 12 /min Height 67 inches 5'7" Weight 152.00 lb BMI (Body Mass Index) 23.8 kg/m2 08/28/2014 BP Systolic 116 mmHg BP Diastolic 64 mmHg Heart Rate 84 /min Body Temperature 97.8 F Respiratory Rate 16 /min Height 67 inches 5'7" Weight 151.50 lb BMI (Body Mass Index) 23.7 kg/m2 Results Test Date Test Result H/L Range Note Toxassure Select 13 (MW) 01/06/2017 Report Summary FINAL 1 PDF . Laboratory test finding 01/06/2017 PDF [id number] SEE IMAGE CBC Electronic ([facility]) 10/30/2016 WBC 5.5 3.6-9.6 RBC 4.51 3.90-5.70 Hemoglobin (Fma/CMC/CTX) 14.2 g/dL 12.1 - 17.2 Hematocrit (Fma/CMC/CTX) 41.6 % 36.1 - 50.3 Platelets 198 10^3/ul 150-400 Lymph% 29.5 % 17.0-48.0 Mixed% 5.7 Neutrophils % 64.8 Mean Corpuscular Vol 92 82.2-97.4 Mean Corpuscular Hemoglobin 31.4 27.6-33.3 Mean Corpuscular Hemo Concen 34.1 32.0-36.0 RDW 14.2 High 11.6-13.7 Mean Platelet Volume 6.9 5.5-11.0 Laboratory test finding 10/30/2016 PDF [id number] SEE IMAGE Ua - Non Micro (a) 10/30/2016 Appearance CLEAR Color YELLOW Glucose, Urine (Fma/CMC/CTX) NEG Bilirubin NEG Ketones NEG SP Grav 1.010 Blood NEG PH 6.0 Protein NEG Urobil 0.2 Nitrite NEG Leukocytes (Fma/CMC/Centrex) NEG Comprehensive Metabolic Prof 10/30/2016 Sodium 138 mEq/L 134-149 Potassium 4.4 mEq/L 3.6-5.5 Chloride 101 mEq/L 94-112 Carbon Dioxide 23 mEq/L 21-32 Glucose 100 mg/dL 70-105 BUN 22 mg/dL 6-26 Creatinine 0.9 mg/dL 0.6-1.4 BUN/Creat Ratio 24.4 CALC 8.0-36.0 Calcium 9.7 mg/dL 8.6-10.2 Total Protein 9.2 g/dL High 6.4-8.3 2 Albumin 4.0 g/dL 3.8-5.5 Globulin 5.2 g/dL High 2.0-4.8 A/G Ratio 0.8 CALC 0.6-2.3 Alk. Phosphatase 53 U/L 22-95 Alt (SGPT) 21 U/L 7-35 Ast (Sgot) 14 U/L 5-34 Total Bilirubin 0.5 mg/dL 0.2-1.3 GFR Non- >60 ml/min/1.73m^ >=60 GFR >60 ml/min/1.73m^ >=60 Laboratory test finding 10/30/2016 TSH 1.80 mIU/L 0.50-6.00 Free T4 1.05 ng/dL 0.75-1.54 Toxassure Select 13 (MW) 10/30/2016 Report Summary FINAL 3 PDF . Lipid Profile 10/30/2016 Cholesterol 114 mg/dL Low 120-200 4 Triglycerides 69 mg/dL 30-200 HDL Cholesterol 43 mg/dL 30-70 LDL (Calculated) 57 CALC 0-129 VLDL Cholesterol 14 mg/dL 0-50 HDL Risk Factor 2.7 CALC 0.0-4.4 Urinalysis Profile 07/27/2016 Urine Color Yellow Urine Appearance Clear Urine Specific Gause 1.015 1.010-1.030 Urine pH 6.0 5-9 Urine Urobilinogen Negative Negative Urine Ketones Trace Negative Urine Protein Negative Negative Urine Leukocytes Negative Negative Urine Blood Negative Negative * * Negative 5 Urine Nitrite Negative Negative Urine Bilirubin Negative Negative Urine Glucose Negative Negative Laboratory test finding 07/27/2016 Acetaminophen < 15 g/mL 6 Alcohol < 10 mg/dL <10 Salicylate < 2.50 mg/dL <30 TSH (Thyroid Stim Horm) 2.25 mcIU/mL 0.34-5.60 Comp Metabolic Panel 07/27/2016 Sodium 126 mmol/L Low 133-145 Potassium 3.6 mmol/L 3.5-5.0 Chloride 91 mmol/L Low 101-111 Co2 Carbon Dioxide 26 mmol/L 22-32 Anion Gap 9 mmol/L 2-11 Glucose 86 mg/dL 70-100 Blood Urea Nitrogen 20 mg/dL 6-24 Creatinine 1.12 mg/dL 0.67-1.17 BUN/Creatinine Ratio 17.9 8-20 Calcium 9.7 mg/dL 8.6-10.3 Total Protein 9.1 g/dL High 6.4-8.9 Albumin 3.8 g/dL 3.2-5.2 Globulin 5.3 g/dL High 2-4 Albumin/Globulin Ratio 0.7 Low 1-3 Total Bilirubin 0.80 mg/dL 0.2-1.0 Alkaline Phosphatase 61 U/L 34-104 Alt 16 U/L 7-52 Ast 16 U/L 13-39 Egfr Non- 68.1 >60 Egfr 87.5 >60 7 Urine Drug SCR ED 07/27/2016 Amphetamine Ur Screen None Detected None Detect & [facility] Barbiturates Urine Screen None Detected None Detect Benzodiazepine Urine Screen None Detected None Detect Urine Cannabinoids Screen Presumptive Posi <SEE NOTE> None Detect 8 Urine Cocaine Screen None Detected None Detect Urine Opiates Screen None Detected None Detect Urine Phencyclidine Screen Presumptive Posi <SEE NOTE> None Detect 9 CBC Auto Diff 07/27/2016 White Blood Count 8.2 10^3/uL 3.5-10.8 Red Blood Count 4.51 10^6/uL 4.0-5.4 Hemoglobin 14.0 g/dL 14.0-18.0 Hematocrit 40 % Low 42-52 Mean Corpuscular Volume 89 fL 80-94 Mean Corpuscular Hemoglobin 31 pg 27-31 Mean Corpuscular HGB Conc 35 g/dL 31-36 Red Cell Distribution Width 13 % 10.5-15 Platelet Count 191 10^3/uL 150-450 Mean Platelet Volume 8 um3 7.4-10.4 Abs Neutrophils 6.2 10^3/uL 1.5-7.7 Abs Lymphocytes 1.2 10^3/uL 1.0-4.8 Abs Monocytes 0.7 10^3/uL 0-0.8 Abs Eosinophils 0 10^3/uL 0-0.6 Abs Basophils 0 10^3/uL 0-0.2 Abs Nucleated RBC 0.01 10^3/uL Granulocyte % 75.4 % 38-83 Lymphocyte % 15.1 % Low 25-47 Monocyte % 8.6 % 1-9 Eosinophil % 0.5 % 0-6 Basophil % 0.4 % 0-2 Nucleated Red Blood Cells % 0.1 Comprehensive Metabolic Prof 04/14/2016 Sodium 139 mEq/L 134-149 Potassium 4.4 mEq/L 3.6-5.5 Chloride 98 mEq/L 94-112 Carbon Dioxide 29 mEq/L 21-32 Glucose 82 mg/dL 70-105 BUN 20 mg/dL 6-26 Creatinine 1.1 mg/dL 0.6-1.4 BUN/Creat Ratio 18.2 CALC 8.0-36.0 Calcium 9.9 mg/dL 8.6-10.2 Total Protein 9.4 g/dL High 6.4-8.3 10 Albumin 4.2 g/dL 3.8-5.5 Globulin 5.2 g/dL High 2.0-4.8 A/G Ratio 0.8 CALC 0.6-2.3 Alk. Phosphatase 62 U/L 22-95 Alt (SGPT) 24 U/L 7-35 Ast (Sgot) 20 U/L 5-34 Total Bilirubin 0.5 mg/dL 0.2-1.3 GFR Non- >60 ml/min/1.73m^ >=60 GFR >60 ml/min/1.73m^ >=60 Laboratory test finding 04/14/2016 TSH 1.53 mIU/L 0.50-6.00 Free T4 1.06 ng/dL 0.75-1.54 Laboratory test finding 04/14/2016 C-Reactive Protein, Quant 6.9 mg/L High 0.0-4.9 CBC Electronic (Fma) 04/14/2016 WBC 6.4 3.6-9.6 RBC 4.62 3.90-5.70 Hemoglobin (Fma/CMC/CTX) 14.0 g/dL 12.1 - 17.2 Hematocrit (Fma/CMC/CTX) 42.7 % 36.1 - 50.3 Platelets 202 10^3/ul 150-400 Lymph% 22.5 % 17.0-48.0 Mixed% 4.0 Neutrophils % 73.5 Mean Corpuscular Vol 92 82.2-97.4 Mean Corpuscular Hemoglobin 30.3 27.6-33.3 Mean Corpuscular Hemo Concen 32.7 32.0-36.0 RDW 14.1 High 11.6-13.7 Mean Platelet Volume 6.6 5.5-11.0 Ua - Non Micro (a) 08/28/2014 Appearance CLEAR Color YELLOW Glucose, Urine (Fma/CMC/CTX) NEG Bilirubin NEG Ketones NEG SP Grav 1.010 Blood NEG PH 5.5 Protein NEG Urobil 0.2 Nitrite NEG Leukocytes (Fma/CMC/Centrex) NEG 1 TOXASSURE SELECT 13 (MW) Test Result Flag Units Drug Absent but Declared for Prescription Verification Amphetamine Not Detected UNEXPECTED ng/mg creat Test Result Flag Units Ref Range Creatinine 49 mg/dL >=20 Declared Medications: The flagging and interpretation on this report are based on the following declared medications. Unexpected results may arise from inaccuracies in the declared medications. Note: The testing scope of this panel includes these medications: Amphetamine (Vyvanse) Note: The testing scope of this panel does not include following reported medications: Topical Trazodone For clinical consultation, please call . 2 consistent w/ previous results 3 TOXASSURE SELECT 13 (MW) Test Result Flag Units Drug Present not Declared for Prescription Verification Carboxy-THC 166 UNEXPECTED ng/mg creat Carboxy-THC is a metabolite of tetrahydrocannabinol (THC). Source of THC is most commonly illicit, but THC is also present in a scheduled prescription medication. Drug Absent but Declared for Prescription Verification Amphetamine Not Detected UNEXPECTED ng/mg creat Test Result Flag Units Ref Range Creatinine 38 mg/dL >=20 Declared Medications: The flagging and interpretation on this report are based on the following declared medications. Unexpected results may arise from inaccuracies in the declared medications. Note: The testing scope of this panel includes these medications: Amphetamine (Vyvanse) Note: The testing scope of this panel does not include following reported medications: Trazodone For clinical consultation, please call . 4 RESULTS VERIFIED BY REPEAT ANALYSIS 5 *Ascorbic acid is present which may interfere with detection of blood. 6 Therapeutic concentration: <50 ug/mL Toxic concentration: >120 ug/mL 7 Because ethnic data is not always readily available, this report includes an eGFR for both -Americans and non- Americans. The National Kidney Disease Education Program (NKDEP) does not endorse the use of the MDRD equation for patients that are not between the ages of 18 and 70, are , have extremes of body size, muscle mass, or nutritional status, or are non- or non-. According to the National Kidney Foundation, irrespective of diagnosis, the stage of the disease is based on the level of kidney function: Stage Description GFR(mL/min/1.73 m(2)) 1 Kidney damage with normal or decreased GFR 90 2 Kidney damage with mild decrease in GFR 60-89 3 Moderate decrease in GFR 30-59 4 Severe decrease in GFR 15-29 5 Kidney failure <15 (or dialysis) 8 Presumptive Positive Presumptive positive results are unconfirmed. 9 Presumptive Positive Presumptive positive results are unconfirmed. The urine specimen was tested at the listed cutoffs: Drug class test level (ng/mL) Amphetamines 500 Barbiturates 200 Benzodiazepine metabolites 200 Cocaine metabolites 150 Cannabinoids 50 Opiates 300 Pcp 25 Specimen was received without chain of custody. Results should be used for medical purposes only. 10 RESULTS VERIFIED BY REPEAT ANALYSIS Procedures Description No Information Encounters Type Date Location Provider CPT E/M Dx Office Visit 01/27/2017 11:30a Main Office Beatriz Tavarez M.D. 58222 F90.0 M48.02 Office Visit 01/06/2017 11:00a Main Office Beatriz Tavarez M.D. 71523 F90.0 F10.21 R63.4 R03.0 M48.02 Z59.6 Office Visit 12/06/2016 3:00p Main Office Beatriz Tavarez M.D. 64454 F90.0 Office Visit 10/30/2016 9:20a Main Office Beatriz Tavarez M.D. 93203 F90.0 F10.21 R94.5 Z13.220 R63.4 Z12.11 Office Visit 04/14/2016 2:45p Main Office Jean Christiansen-C 90603 R19.4 R11.0 G47.00 F10.21 M79.672 F90.2 Office Visit 03/11/2015 3:00p Main Office Beatriz Tavarez M.D. 42597 M48.02 K59.09 M25.562 Office Visit 01/28/2015 10:45a Main Office ALMA ROSA Brennan 35347 M25.562 Office Visit 12/03/2014 10:40a Main Office Beatriz Tavarez M.D. 19613 723.0 300.00 794.8 V77.91 Office Visit 08/28/2014 1:00p Main Office Nancy KennedyLURDES 21908 723.1 719.46 719.41 300.00 V70.0 Plan of Care 05/12/2017 - Beatriz Tavarez M.D.F90.0 Attn-defct hyperactivity disorder, predom inattentive typeNew Medication:Vyvanse 30 mgNew Labs:Comp Metabolic-ALL Lab CompaniToxassure(R) Select 13 (MW)Comments:can try 60mg, max dose, advised needs follow up and monitor weight and blood pressureFollow up:1 moAllComments:~ B_~U_Medication Management~b_~u_ Patient Understands medications he's taking? Yes No Are there Barriers to Adherence? Yes No Has the patient been asked about herbal supplements and therapies, and OTC meds? Yes No
[2017-06-03 23:31] LABS: ABS Basophils 0 10^3/ul (0-0.2); ABS Eosinophils 0.1 10^3/ul (0-0.6); ABS Lymphocytes 1.3 10^3/ul (1.0-4.8); ABS Monocytes 0.5 10^3/ul (0-0.8); ABS Neutrophils 3.6 10^3/ul (1.5-7.7); ABS Nucleated RBC 0 10^3/ul; Hematocrit 39 % (42-52); Hemoglobin 13.5 g/dl (14.0-18.0); Lymphocyte % 23.2 % (25-47); Mean Corpuscular HGB Conc 35 g/dl (31-36); Mean Corpuscular Hemoglobin 31 pg (27-31); Mean Corpuscular Volume 90 fL (80-94); Mean Platelet Volume 8 um3 (7.4-10.4); Nucleated Red Blood Cells % 0.1; Platelet Count 209 10^3/ul (150-450); Red Blood Count 4.37 10^6/ul (4.0-5.4); Red Cell Distribution Width 13 % (10.5-15); White Blood Count 5.5 10^3/ul (3.5-10.8)
[2017-06-03 23:41] LABS: EGFR Non-African American 59.4 (>60)
[2017-06-04 00:23] LABS: Urine Appearance Clear; Urine Blood Negative (Negative); Urine Color Yellow; Urine Ketones Negative (Negative); Urine Protein Negative (Negative); Urine Urobilinogen Negative (Negative)
[2017-06-04] MEDS ORDERED: ALPRAZolam TAB* 0.5 MG PO ONE (04:00)
--- NOTE | 2017-06-04 05:15 | ED ---
Johnathan Zhang Tecjoon, scribtasha for Chelo Brown MD on 06/03/17 at 2319 . Psychiatric Complaint - HPI Summary HPI Summary: This patient is a 56 year old male presenting to [facility] with a chief complaint of depression for the past few days. Patient states that he is feeling down, denies HI or SI. Patient has a hx of depression and anxiety. Patient takes vyvanse and trazadone. Patient states that he believes people are after him, especially his upstairs neighbors. Patient states that he has been abusing his ADD medication. - History Of Current Complaint Chief Complaint: EDMentalHealth Time Seen by Provider: 06/03/17 22:30 Hx Obtained From: Patient Onset/Duration: Gradual Onset, Still Present Timing: Constant Severity Initially: Moderate Character: Depressed, Anxious Aggravating Factor(s): Nothing Alleviating Factor(s): Nothing Associated Signs And Symptoms: Positive: Paranoid Behavior Has Suicidal: Denies: Thoughts Has Homicidal: Denies: Thoughts - Allergies/Home Medications Allergies/Adverse Reactions: Allergies Allergy/AdvReac Type Severity Reaction Status Date / Time No Known Allergies Allergy Verified 11/08/16 07:33 PMH/Surg Hx/FS Hx/Imm Hx Previously Healthy: No Cardiovascular History: Reports: Other Cardiovascular Problems/Disorders - unspecific cardiac issues per H+P Respiratory History: Denies: Hx Asthma, Hx Chronic Bronchitis Musculoskeletal History: Reports: Hx Back Problems - spondylosis, Other Musculoskeletal History - hx of spinal stenosis Sensory History: Denies: Hx Contacts or Glasses Opthamlomology History: Denies: Hx Contacts or Glasses Neurological History: Reports: Hx Seizures - With ETOH detox --- reports has not drank in 5 years Psychiatric History: Reports: Hx Anxiety, Hx Attention Deficit Hyperactivity Disorder, Hx Depression, Hx Inpatient Treatment, Hx Community Mental Health Tx, Hx Suicide Attempt - 1999, Hx of Violent Episodes Against Others, Hx Substance Abuse Denies: Hx Eating Disorder, Hx Panic Disorder, Hx Post Traumatic Stress Disorder, Hx Schizophrenia, Hx Bipolar Disorder, Other Psychiatric Issues/ Disorders - Immunization History Date of Tetanus Vaccine: unk Date of Influenza Vaccine: never Infectious Disease History: No Infectious Disease History: Reports: Hx Hepatitis - b- Pt reports it might be a misdx Denies: Traveled Outside the [place] in Last 30 Days - Family History Known Family History: Positive: Other - Alcohol abuse Negative: Hypertension Family History: No FHx schizophrenia - Social History Alcohol Use: None Hx Substance Use: Yes Substance Use Type: Reports: Marijuana, Other Substance Use Comment - Amount & Last Used: cough syrup Hx Tobacco Use: Yes Smoking Status (MU): Former Smoker Type: Cigarettes Have You Smoked in the Last Year: Yes - Smokes one cigareete a few times a year- last time Dec 2014 Review of Systems Negative: Fever Positive: Anxious, Depressed, Other - Negative - SI, HI All Other Systems Reviewed And Are Negative: Yes Physical Exam - Summary Physical Exam Summary: VITAL SIGNS: Reviewed. GENERAL: Patient is a well-developed and nourished male who is lying comfortable in the stretcher. Patient is not in any acute respiratory distress. HEAD AND FACE: No signs of trauma. No ecchymosis, hematomas or skull depressions. No sinus tenderness. EYES: PERRLA, EOMI x 2, No injected conjunctiva, no nystagmus. EARS: Hearing grossly intact. Ear canals and tympanic membranes are within normal limits. MOUTH: Oropharynx within normal limits. NECK: Supple, trachea is midline, no adenopathy, no JVD, no carotid bruit, no c- spine tenderness, neck with full ROM. CHEST: Symmetric, no tenderness at palpation LUNGS: Clear to auscultation bilaterally. No wheezing or crackles. CVS: Regular rate and rhythm, S1 and S2 present, no murmurs or gallops appreciated. ABDOMEN: Soft, non-tender. No signs of distention. No rebound no guarding, and no masses palpated. Bowel sounds are normal. EXTREMITIES: FROM in all major joints, no edema, no cyanosis or clubbing. NEURO: Alert and oriented x 3. No acute neurological deficits. Speech is normal and follows commands. SKIN: Dry and warm Triage Information Reviewed: Yes Vital Signs On Initial Exam: Initial Vitals Temp Pulse Resp BP Pulse Ox 98.6 F 102 22 143/96 100 06/03/17 21:47 06/03/17 21:47 06/03/17 21:47 06/03/17 21:47 06/03/17 21:47 Vital Signs Reviewed: Yes Diagnostics - Vital Signs Vital Signs Temp Pulse Resp BP Pulse Ox 06/03/17 21:47 98.6 F 102 22 143/96 100 - Laboratory Result Diagrams: 06/03/17 23:15 06/03/17 23:15 Lab Statement: Any lab studies that have been ordered have been reviewed, and results considered in the medical decision making process. Course/Dx - Course Course Of Treatment: This patient is a 56 year old male presenting to [facility] with a chief complaint of depression for the past few days. Patient states that he is feeling down, denies HI or SI. Bloodwork Obtained. Urinalysis Obtained. In the ED course the patient was given Xanax. Patient was evaluated by Mental Health evaluators, who discussed the case with Dr. Villeda (Psychiatrist). Dr. Villeda recommended discharging the patient and following up with [facility], [place]. Dr. Villeda stated that acute psychosis was not grounds for admission without SI, HI, or inability of the patient to care for himself. Dr. Brown personally spoke to [facility]. Patient will be diagnosed with acute psychosis and is advised to follow up with [facility] [place]. - Differential Dx/Clinical Impression Provider Diagnosis: Acute psychosis - Physician Notifications Discussed Care Of Patient With: Isiah Villeda - Psychatrist Time Discussed With Above Provider: 05:04 - Dr. Villeda recommended discharging the patient and following up with [facility] [place]. Dr. Villeda stated that acute psychosis was not grounds for admission without SI, HI, or inability of the patient to care for himself. Patient Is Medically Stable For: Psych Evaluation Discharge - Discharge Plan Condition: Stable Disposition: HOME Patient Education Materials: Psychotic Disorder (ED) Referrals: Beatriz Tavarez MD [Primary Care Provider] - 3 Days [facility] [[employer], APPLICATION, OTHER] - 3 Days Additional Instructions: Patient is advised to follow up with [facility] [place] within 3 days. Return to the ED for new or worsening symptoms. The documentation as recorded by the Johnathan london Tecjoon accurately reflects the service I personally performed and the decisions made by , Chelo Brown MD.
[2017-06-04 09:40] VITALS: BP 0/0
== END 2017-06-04 09:32 | disposition home or self-care (01) ==
LOC: ED 21:37
DX: F23 Brief psychotic disorder (principal); Z87.891 Personal history of nicotine dependence
CPT/HCPCS: 36415; 80053; 80307; 80320; 80329; 81003; 84443; 85025; 99283; A9270-GY; G0480

== ENCOUNTER 2017-10-18 07:38 | Emergency (ER) | payer OTHER ==
--- NOTE | 2017-10-18 08:38 | RAD ---
INDICATION: Left knee injury COMPARISON: None TECHNIQUE: AP, lateral, tunnel, and sunrise views were obtained. FINDINGS: There is no acute bony change. There is advanced osteoarthritis about the medial joint space compartment. There is mild to moderate osteoarthritis about the lateral joint space compartment and there is moderate patellofemoral spurring. There is a large joint effusion IMPRESSION: MODERATE TO ADVANCED OSTEOARTHRITIS. LARGE JOINT EFFUSION. NO ACUTE BONY CHANGE
[2017-10-18 09:49] VITALS: BP 131/78
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
== END 2017-10-18 09:49 | disposition home or self-care (01) ==
LOC: ED 07:38
DX: M25.562 Pain in left knee (principal); M25.462 Effusion, left knee; V23.4XXA Motorcycle driver injured in collision with car, pick-up truck or van in traffic accident, initial encounter; Y92.9 Unspecified place or not applicable; M17.12 Unilateral primary osteoarthritis, left knee; Z87.891 Personal history of nicotine dependence
CPT/HCPCS: 99282

== ENCOUNTER 2018-02-15 18:51 | Emergency (ER) | payer OTHER ==
--- OUTSIDE RECORDS SUMMARY | 2018-02-15 19:22 | XMS REPORT ---
:1960 External Reference #:[id number] Author Organization [facility] Address [address] [place] [address] Phone [phone] Care Team Providers Name Role Phone Beatriz Tavarez M.D. 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 Primary Care Physician Unavailable Payers Type Date Identification Numbers Payment Provider Subscriber Medicaid Policy Number: [id number] [facility] [address] PayID: [id number] [address] [address] [place] [address] Problems Date Description Provider Status Onset: 10/15/2014 [...] in remission Beatriz Tavarez M.D. Active Onset: 01/26/2018 Essential hypertension Beatriz Tavarez M.D. 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 Cigarette Use Former Cigarette Smoker ETOH Use Denies alcohol use ETOH Use Recovered alcoholic October 2010 Smoking Patient is a former smoker Recreational Drug Use Marijuana Recreational Drug Use Former Drug User stimulants, cough medication Daily Caffeine Consumes on average 5-10 cups of coffee per day Seat Belt/Car Seat Always uses seat belt Allergies, Adverse Reactions, Alerts Date Description Reaction Status Severity Comments 08/28/2014 NKDA active Medications Medication Date Status Form Strength Qnty SIG Indications Ordering Provider Clonidine HCL Active Tablets 0.2mg 30tabs 1 tab by I10 Beatriz 018 mouth [place], every day M.D. Trazodone HCL Active Tablets 150mg 30tabs 1 tab by F41.9 Angelica 018 mouth [place], every Afnp-C night Vyvanse Hx Capsules 30mg 60caps 2 by mouth F90.0 Beatriz 018 - every day , M.D. 018 Meloxicam Hx Tablets 15mg 30tabs take one M48.02 Beatriz 017 - tablet by [place], mouth M.D. 018 daily prn with food Vyvanse Hx Capsules 40mg 30caps 1 by mouth F90.0 Beatriz 017 - every day , M.D. 018 [place] Hx Cream 10%-11% 50gm apply to M48.02 Beatriz Neck & 017 - affected [place], Shoulder Rub area twice M.D. 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 017 Concerta Hx Tablets ER 27mg 30tabs 1 by mouth Beatriz 017 - every day [place], M.D. 017 Concerta Hx Tablets ER 18mg 30tabs 1 tab by Beatriz 017 - mouth [place], every day M.D. 017 as needed Vyvanse Hx Capsules 40mg 30caps 1 by mouth F90.0 Beatriz 017 - every day [place], M.D. 017 Docusate Hx Capsules 100mg 60caps 1-2 by K59.09 Beatriz Sodium 015 - mouth [place], twice a M.D. 016 day as needed hard stools Abilify Hx Tablets 5mg 30tabs 1 by mouth 300.00 Beatriz 015 - every day [place], M.D. 015 Trazodone HCL 0 Hx Tablets 150mg 30tabs take one Angelica 000 - [facility] mouth at Afnp-C 017 bedtime Abilify /0 Hx Tablets 5mg 1 by mouth Unknown 000 - every day, as needed 015 Strattera /0 Hx Capsules 25mg 2 by mouth Unknown 000 - twice a day 016 Vital Signs Date Vital Result Comment 01/26/2018 BP Systolic 128 mmHg BP Diastolic 92 mmHg Heart Rate 64 /min Body Temperature 98.2 F Height 67 inches 5'7" Weight 144.00 lb BMI (Body Mass Index) 22.6 kg/m2 08/29/2017 BP Systolic 134 mmHg BP Diastolic 60 mmHg Heart Rate 84 /min Body Temperature 99.7 F Respiratory Rate 16 /min Height 67 inches 5'7" Weight 142.25 lb BMI (Body Mass Index) 22.3 kg/m2 06/09/2017 BP Systolic 112 mmHg BP Diastolic 68 mmHg Heart Rate 84 /min Body Temperature 97.9 F Respiratory Rate 16 /min Height 67 inches 5'7" Weight 138.12 lb BMI (Body Mass Index) 21.6 kg/m2 05/12/2017 BP Systolic 112 mmHg BP Diastolic [...] Test Date Test Result H/L Range Note Comp Metabolic Panel 06/03/2017 Sodium 136 mmol/L 133-145 Potassium 4.1 mmol/L 3.5-5.0 Chloride 101 mmol/L 101-111 Co2 Carbon Dioxide 30 mmol/L 22-32 Anion Gap 5 mmol/L 2-11 Glucose 68 mg/dL Low 70-100 Blood Urea Nitrogen 30 mg/dL High 6-24 Creatinine 1.26 mg/dL High 0.67-1.17 BUN/Creatinine Ratio 23.8 High 8-20 Calcium 10.3 mg/dL 8.6-10.3 Total Protein 9.0 g/dL High 6.4-8.9 Albumin 3.9 g/dL 3.2-5.2 Globulin 5.1 g/dL High 2-4 Albumin/Globulin Ratio 0.8 Low 1-3 Total Bilirubin 0.40 mg/dL 0.2-1.0 Alkaline Phosphatase 50 U/L 34-104 Alt 13 U/L 7-52 Ast 13 U/L 13-39 Egfr Non- 59.4 >60 Egfr 76.4 >60 1 Laboratory test finding 06/03/2017 Acetaminophen < 15 g/mL 2 Alcohol < 10 mg/dL <10 Salicylate < 2.50 mg/dL <30 TSH (Thyroid Stim Horm) 3.07 mcIU/mL 0.34-5.60 Urinalysis Profile 06/03/2017 Urine Color Yellow Urine Appearance Clear Urine Specific [place] 1.010 1.010-1.030 Urine pH 6.0 5-9 Urine Urobilinogen Negative Negative Urine Ketones Negative Negative Urine Protein Negative Negative Urine Leukocytes Negative Negative Urine Blood Negative Negative Urine Nitrite Negative Negative Urine Bilirubin Negative Negative Urine Glucose Negative Negative Urine Drug SCR 06/03/2017 Amphetamine Ur Screen Presumptive Posi <SEE None Detect 3 [facility] NOTE> Barbiturates Urine Screen None Detected None Detect Benzodiazepine Urine Screen None Detected None Detect Urine Cannabinoids Screen Presumptive Posi <SEE NOTE> None Detect 4 Urine Cocaine Screen None Detected None Detect Urine Opiates Screen None Detected None Detect Urine Phencyclidine Screen None Detected None Detect 5 Comprehensive Metabolic Prof 05/12/2017 Sodium 141 mEq/L 134-149 Potassium 4.2 mEq/L 3.6-5.5 Chloride 103 mEq/L 94-112 Carbon Dioxide 29 mEq/L 21-32 Glucose 88 mg/dL 70-105 BUN 25 mg/dL 6-26 Creatinine 1.1 mg/dL 0.6-1.4 BUN/Creat Ratio 22.7 CALC 8.0-36.0 Calcium 10.0 mg/dL 8.6-10.2 Total Protein 9.3 g/dL High 6.4-8.3 6 Albumin 4.0 g/dL 3.8-5.5 Globulin 5.3 g/dL High 2.0-4.8 A/G Ratio 0.8 CALC 0.6-2.3 Alk. Phosphatase 57 U/L 22-95 Alt (SGPT) 16 U/L 7-35 Ast (Sgot) 15 U/L 5-34 Total Bilirubin 0.3 mg/dL 0.2-1.3 GFR Non- >60 ml/min/1.73m^ >=60 GFR >60 ml/min/1.73m^ >=60 Toxassure Select 13 (MW) 05/12/2017 Report Summary FINAL 7 PDF . Laboratory test finding 05/12/2017 PDF [id number] SEE IMAGE Toxassure Select 13 (MW) 01/06/2017 Report Summary FINAL 8 PDF . Laboratory test finding 01/06/2017 PDF [id number] SEE IMAGE Laboratory test finding 10/30/2016 PDF [id number] SEE IMAGE CBC Electronic (a) 10/30/2016 WBC 5.5 3.6-9.6 RBC 4.51 3.90-5.70 Hemoglobin (Fma/CMC/CTX) 14.2 g/dL 12.1 - 17.2 Hematocrit (Fma/CMC/CTX) 41.6 % 36.1 - 50.3 Platelets 198 10^3/ul 150-400 Lymph% 29.5 % 17.0-48.0 Mixed% 5.7 Neutrophils % 64.8 Mean Corpuscular Vol 92 82.2-97.4 Mean Corpuscular Hemoglobin 31.4 27.6-33.3 Mean Corpuscular Hemo Concen 34.1 32.0-36.0 RDW 14.2 High 11.6-13.7 Mean Platelet Volume 6.9 5.5-11.0 Ua - Non Micro (Fma) 10/30/2016 Appearance CLEAR Color YELLOW Glucose, Urine [...] 8.6-10.2 Total Protein 9.2 g/dL High 6.4-8.3 9 Albumin 4.0 g/dL 3.8-5.5 Globulin 5.2 g/dL [...] Select 13 (MW) 10/30/2016 Report Summary FINAL 10 PDF . Lipid Profile 10/30/2016 Cholesterol 114 mg/dL Low 120-200 11 Triglycerides 69 mg/dL 30-200 HDL Cholesterol 43 mg/dL 30-70 LDL (Calculated) 57 CALC 0-129 VLDL Cholesterol 14 mg/dL 0-50 HDL Risk Factor 2.7 CALC 0.0-4.4 Urinalysis Profile 07/27/2016 Urine Color Yellow Urine Appearance Clear Urine Specific [place] 1.015 1.010-1.030 Urine pH 6.0 5-9 Urine Urobilinogen Negative Negative Urine Ketones Trace Negative Urine Protein Negative Negative Urine Leukocytes Negative Negative Urine Blood Negative Negative * * Negative 12 Urine Nitrite Negative Negative Urine Bilirubin Negative Negative Urine Glucose Negative Negative CBC Auto Diff 07/27/2016 White Blood Count [...] 0-2 Nucleated Red Blood Cells % 0.1 Laboratory test finding 07/27/2016 Acetaminophen < 15 g/mL 13 Alcohol < 10 mg/dL <10 Salicylate < [...] Egfr Non- 68.1 >60 Egfr 87.5 >60 14 Urine Drug SCR ED & 07/27/2016 Amphetamine Ur Screen None Detected None Detect Pain Clinic Barbiturates Urine Screen None Detected None Detect Benzodiazepine Urine Screen None Detected None Detect Urine Cannabinoids Screen Presumptive Posi <SEE NOTE> None Detect 15 Urine Cocaine Screen None Detected None Detect Urine Opiates Screen None Detected None Detect Urine Phencyclidine Screen Presumptive Posi <SEE NOTE> None Detect 16 Laboratory test finding 04/14/2016 TSH 1.53 mIU/L 0.50-6.00 Free T4 1.06 ng/dL 0.75-1.54 Laboratory test finding 04/14/2016 C-Reactive Protein, Quant 6.9 mg/L High 0.0-4.9 CBC Electronic (a) 04/14/2016 WBC 6.4 3.6-9.6 RBC 4.62 3.90-5.70 Hemoglobin (Fma/CMC/CTX) 14.0 g/dL 12.1 - 17.2 Hematocrit (Fma/CMC/CTX) 42.7 % 36.1 - 50.3 Platelets 202 10^3/ul 150-400 Lymph% 22.5 % 17.0-48.0 Mixed% 4.0 Neutrophils % 73.5 Mean Corpuscular Vol 92 82.2-97.4 Mean Corpuscular Hemoglobin 30.3 27.6-33.3 Mean Corpuscular Hemo Concen 32.7 32.0-36.0 RDW 14.1 High 11.6-13.7 Mean Platelet Volume 6.6 5.5-11.0 Comprehensive Metabolic Prof 04/14/2016 Sodium 139 mEq/L 134-149 Potassium 4.4 mEq/L 3.6-5.5 Chloride 98 mEq/L 94-112 Carbon Dioxide 29 mEq/L 21-32 Glucose 82 mg/dL 70-105 BUN 20 mg/dL 6-26 Creatinine 1.1 mg/dL 0.6-1.4 BUN/Creat Ratio 18.2 CALC 8.0-36.0 Calcium 9.9 mg/dL 8.6-10.2 Total Protein 9.4 g/dL High 6.4-8.3 17 Albumin 4.2 g/dL 3.8-5.5 Globulin 5.2 g/dL High 2.0-4.8 A/G Ratio 0.8 CALC 0.6-2.3 Alk. Phosphatase 62 U/L 22-95 Alt (SGPT) 24 U/L 7-35 Ast (Sgot) 20 U/L 5-34 Total Bilirubin 0.5 mg/dL 0.2-1.3 GFR Non- >60 ml/min/1.73m^ >=60 GFR >60 ml/min/1.73m^ >=60 Ua - Non Micro (Fma) 08/28/2014 Appearance CLEAR Color YELLOW Glucose, Urine (Fma/CMC/CTX) NEG Bilirubin NEG Ketones NEG SP Grav 1.010 Blood NEG PH 5.5 Protein NEG Urobil 0.2 Nitrite NEG Leukocytes (Fma/CMC/Centrex) NEG 1 Because ethnic data is not always readily [...] 15-29 5 Kidney failure <15 (or dialysis) 2 Therapeutic concentration: <50 ug/mL Toxic concentration: >120 ug/mL 3 Presumptive Positive Presumptive positive results are unconfirmed. 4 Presumptive Positive Presumptive positive results are unconfirmed. 5 The urine specimen was tested at the listed cutoffs: Drug class test level (ng/mL) Amphetamines 500 Barbiturates 200 Benzodiazepine metabolites 200 Cocaine metabolites 150 Cannabinoids 50 Opiates 300 Pcp 25 Specimen was received without chain of custody. Results should be used for medical purposes only. 6 consistent w/ previous results 7 TOXASSURE SELECT 13 (MW) Test Result Flag Units Drug Present and Declared for Prescription Verification Amphetamine 3606 EXPECTED ng/mg creat Amphetamine is available as a schedule II prescription drug. Drug Present not Declared for Prescription Verification Carboxy-THC 663 UNEXPECTED ng/mg creat Carboxy-THC is a metabolite of tetrahydrocannabinol (THC). Source of THC is most commonly illicit, but THC is also present in a scheduled prescription medication. Test Result Flag Units Ref Range Creatinine 48 mg/dL >=20 Declared Medications: The flagging and interpretation on this report are based on the following declared medications. Unexpected results may arise from inaccuracies in the declared medications. Note: The testing scope of this panel includes these medications: Amphetamine (Vyvanse) Note: The testing scope of this panel does not include following reported medications: Topical Trazodone For clinical consultation, please call . 8 TOXASSURE SELECT 13 (MW) Test Result Flag [...] Trazodone For clinical consultation, please call . 9 consistent w/ previous results 10 TOXASSURE SELECT 13 (MW) Test Result Flag [...] Trazodone For clinical consultation, please call . 11 RESULTS VERIFIED BY REPEAT ANALYSIS 12 *Ascorbic acid is present which may interfere with detection of blood. 13 Therapeutic concentration: <50 ug/mL Toxic concentration: >120 ug/mL 14 Because ethnic data is not always readily [...] 15-29 5 Kidney failure <15 (or dialysis) 15 Presumptive Positive Presumptive positive results are unconfirmed. 16 Presumptive Positive Presumptive positive results are unconfirmed. The urine specimen was tested at the listed cutoffs: Drug class test level (ng/mL) Amphetamines 500 Barbiturates 200 Benzodiazepine metabolites 200 Cocaine metabolites 150 Cannabinoids 50 Opiates 300 Pcp 25 Specimen was received without chain of custody. Results should be used for medical purposes only. 17 RESULTS VERIFIED BY REPEAT ANALYSIS Procedures Description No Information Encounters Type Date Location Provider CPT E/M Dx Office Visit 08/29/2017 7:30p Main Office Beatriz Tavarez M.D. 25809 F90.0 F41.9 Z12.11 Office Visit 06/09/2017 11:20a Main Office Beatriz Tavarez M.D. 71223 F90.0 F41.9 F06.8 Office Visit 05/12/2017 11:30a Main Office Beatriz Tavarez M.D. 94273 F90.0 Z79.899 Office Visit 01/27/2017 11:30a Main Office Beatriz Tavarez M.D. 47143 F90.0 M48.02 Office Visit 01/06/2017 11:00a Main Office Beatriz Tavarez M.D. 86228 F90.0 F10.21 R63.4 R03.0 M48.02 Z59.6 Office Visit 12/06/2016 3:00p Main Office Beatriz Tavarez M.D. 47476 F90.0 Office Visit 10/30/2016 9:20a Main Office Beatriz Tavarez M.D. 51740 F90.0 F10.21 R94.5 Z13.220 R63.4 Z12.11 Office Visit 04/14/2016 2:45p Main Office Angelica Beyer, Jean-Maria G 63676 R19.4 R11.0 G47.00 F10.21 M79.672 F90.2 Office Visit 03/11/2015 3:00p Main Office Beatriz Tavarez M.D. 13064 M48.02 K59.09 M25.562 Office Visit 01/28/2015 10:45a Main Office Radha Cedric, LAMA ROSA 45929 M25.562 Office Visit 12/03/2014 10:40a Main Office Beatriz Tavarez M.D. 45466 723.0 300.00 794.8 V77.91 Office Visit 08/28/2014 1:00p [place] [address] 723.1 719.46 719.41 300.00 V70.0 Plan of Care Future Appointment(s):03/27/2018 1:40 pm - Beatriz Tavarez M.D. at Main Ehbkwo2102/2018 - Beatriz Tavarez M.D.F90.0 Attn-defct hyperactivity disorder, predom inattentive typeComments:no further stimulants given prior vvyanse misuse; doesn 't want other medication (wellbutrin, strattera) for nowF10.21 Alcohol dependence, in remissionComments:congratulations on remaining lotktR19 Essential (primary) hypertensionNew Medication:Clonidine HCL 0.2 mgNew Labs:CBC Electronic (Fma)CCS-Comp Metabolic (Fma) FemalCCS-Lipid Profile (Fma) FemaleTSH (Fma/CMC/[facility])Comments:The patient will continue to monitor blood pressure and let me know the blood pressure results if there are readings persistently above 140/80. Goal blood pressure is less than 140/80. Recommend low salt/ cardiac diet and routine exercise. trial of clonidine for HTN and restless legs, don't stop medication needs a taper, use only as prescribed; Reviewed adverse side effects of medication. Advised to call the office if experiencing symptoms. Patient verbalized understanding.Follow up:1 wueupW95.11 Encounter for screening for malignant neoplasm of colonComments:counseled on colonoscopy; patient would like to defer at this timeAllComments:~B_~U_Medication Management~ b_~u_ Patient Understands medications he's taking? Yes No Are there Barriers to Adherence? Yes No Has the patient been asked about herbal supplements and therapies, and OTC meds? Yes No
[2018-02-15 20:14] LABS: ABS Basophils 0 10^3/ul (0-0.2); ABS Eosinophils 0.1 10^3/ul (0-0.6); ABS Lymphocytes 1.2 10^3/ul (1.0-4.8); ABS Monocytes 0.6 10^3/ul (0-0.8); ABS Neutrophils 4.5 10^3/ul (1.5-7.7); ABS Nucleated RBC 0 10^3/ul; Eosinophil % 0.9 % (0-6); Hematocrit 40 % (42-52); Lymphocyte % 18.5 % (25-47); Mean Corpuscular HGB Conc 35 g/dl (31-36); Mean Corpuscular Hemoglobin 33 pg (27-31); Mean Corpuscular Volume 92 fL (80-94); Mean Platelet Volume 7.9 um3 (7.4-10.4); Nucleated Red Blood Cells % 0; Platelet Count 162 10^3/ul (150-450); Red Cell Distribution Width 14 % (10.5-15); White Blood Count 6.3 10^3/ul (3.5-10.8)
[2018-02-15 20:33] LABS: EGFR Non-African American 55.1 (>60)
--- NOTE | 2018-02-15 21:51 | ED ---
Psychiatric Complaint - HPI Summary HPI Summary: This patient is a 57 year old M presenting to [facility] with a chief complaint of anxiety that began last week. The patient rates the pain 3/10 in severity. Symptoms aggravated by nothing. Symptoms alleviated by nothing. Patient reports chest tightness, palpitations, difficulty sleeping, SOB, and nausea. Patient denies SI. - History Of Current Complaint Chief Complaint: EDPsychosocial Time Seen by Provider: 02/15/18 21:40 Hx Obtained From: Patient Onset/Duration: Sudden Onset, Lasting Weeks, Still Present Timing: Constant Severity Initially: Mild Severity Currently: Mild Character: Anxious Aggravating Factor(s): Nothing Alleviating Factor(s): Nothing Associated Signs And Symptoms: Positive: Sleep Disturbance Related History: Positive For: Prior Psychiatric Issues Has Suicidal: Denies: Thoughts - Allergies/Home Medications Allergies/Adverse Reactions: Allergies Allergy/AdvReac Type Severity Reaction Status Date / Time No Known Allergies Allergy Verified 11/08/16 07:33 PMH/Surg Hx/FS Hx/Imm Hx Previously Healthy: No Cardiovascular History: Reports: Other Cardiovascular Problems/Disorders - unspecific cardiac issues per H+P Respiratory History: Denies: Hx Asthma, Hx Chronic Bronchitis Musculoskeletal History: Reports: Hx Back Problems - spondylosis, Other Musculoskeletal History - hx of spinal stenosis Sensory History: Denies: Hx Contacts or Glasses Opthamlomology History: Denies: Hx Contacts or Glasses Neurological History: Reports: Hx Seizures - With ETOH detox Psychiatric History: Reports: Hx Anxiety, Hx Attention Deficit Hyperactivity Disorder, Hx Depression, Hx Inpatient Treatment, Hx Community Mental Health Tx, Hx Suicide Attempt - 1999, Hx of Violent Episodes Against Others, Hx Substance Abuse Denies: Hx Eating Disorder, Hx Panic Disorder, Hx Post Traumatic Stress Disorder, Hx Schizophrenia, Hx Bipolar Disorder, Other Psychiatric Issues/ Disorders - Surgical History Surgery Procedure, Year, and Place: No surgical history - Immunization History Date of Tetanus Vaccine: unk Date of Influenza Vaccine: never Infectious Disease History: No Infectious Disease History: Reports: Hx Hepatitis Denies: Traveled Outside the [place] in Last 30 Days - Family History Known Family History: Positive: Other - Alcohol abuse Negative: Hypertension Family History: No FHx schizophrenia - Social History Occupation: Unemployed Lives: Alone Alcohol Use: None Hx Substance Use: Yes Substance Use Type: Reports: Marijuana, Other Substance Use Comment - Amount & Last Used: cough syrup Hx Tobacco Use: Yes Smoking Status (MU): Former Smoker Type: Cigarettes Have You Smoked in the Last Year: No Review of Systems Positive: Palpitations, Chest Pain Positive: Shortness Of Breath Positive: Nausea Positive: Anxious, Other - Positive difficulty sleeping All Other Systems Reviewed And Are Negative: Yes Physical Exam - Summary Physical Exam Summary: Appearance: Well appearing, no pain distress Skin: warm, dry, reflects adequate perfusion Head/face: normal Eyes: EOMI, VASYL ENT: normal Neck: supple, non-tender Respiratory: CTA, breath sounds present Cardiovascular: RRR, pulses symmetrical Abdomen: non-tender, soft Bowel: present Musculoskeletal: normal, strength/ROM intact Neuro: normal, sensory motor intact, A&Ox3 Psych: anxious Triage Information Reviewed: Yes Vital Signs On Initial Exam: Initial Vitals Temp Pulse Resp BP Pulse Ox 99 F 74 20 138/88 97 02/15/18 19:07 02/15/18 19:07 02/15/18 19:07 02/15/18 19:07 02/15/18 19:07 Vital Signs Reviewed: Yes Diagnostics - Vital Signs Vital Signs Temp Pulse Resp BP Pulse Ox 02/15/18 19:07 99 F 74 20 138/88 97 - Laboratory Lab Results: Lab Results 02/15/18 02/15/18 Range/Units 19:59 19:59 WBC 6.3 (3.5-10.8) 10^3/ul RBC 4.30 (4.00-5.40) 10^6/ul Hgb 14.0 (14.0-18.0) g/dl Hct 40 L (42-52) % MCV 92 (80-94) fL MCH 33 H (27-31) pg MCHC 35 (31-36) g/dl RDW 14 (10.5-15) % Plt Count 162 (150-450) 10^3/ul MPV 7.9 (7.4-10.4) um3 Neut % (Auto) 70.4 (38-83) % Lymph % (Auto) 18.5 L (25-47) % [place] % (Auto) 9.6 H (0-7) % Eos % (Auto) 0.9 (0-6) % Baso % (Auto) 0.6 (0-2) % Absolute Neuts (auto) 4.5 (1.5-7.7) 10^3/ul Absolute Lymphs (auto) 1.2 (1.0-4.8) 10^3/ul Absolute Monos (auto) 0.6 (0-0.8) 10^3/ul Absolute Eos (auto) 0.1 (0-0.6) 10^3/ul Absolute Basos (auto) 0 (0-0.2) 10^3/ul Absolute Nucleated RBC 0 10^3/ul Nucleated RBC % 0 Sodium 136 (135-145) mmol/L Potassium 3.9 (3.5-5.0) mmol/L Chloride 98 L (101-111) mmol/L Carbon Dioxide 32 (22-32) mmol/L Anion Gap 6 (2-11) mmol/L BUN 22 (6-24) mg/dL Creatinine 1.34 H (0.67-1.17) mg/dL Est GFR ( Amer) 66.7 (>60) Est GFR (Non-Af Amer) 55.1 (>60) BUN/Creatinine Ratio 16.4 (8-20) Glucose 79 (70-100) mg/dL Calcium 9.5 (8.6-10.3) mg/dL Total Bilirubin 0.40 (0.2-1.0) mg/dL AST 15 (13-39) U/L ALT 18 (7-52) U/L Alkaline Phosphatase 54 (34-104) U/L Total Protein 8.8 (6.4-8.9) g/dL Albumin 3.6 (3.2-5.2) g/dL Globulin 5.2 H (2-4) g/dL Albumin/Globulin Ratio 0.7 L (1-3) TSH 2.27 (0.34-5.60) mcIU/mL Salicylates < 2.50 (<30) mg/dL Acetaminophen < 15 mcg/mL Serum Alcohol < 10 (<10) mg/dL Result Diagrams: 02/15/18 19:59 02/15/18 19:59 Lab Statement: Any lab studies that have been ordered have been reviewed, and results considered in the medical decision making process. - Radiology CXR Radiology Interpretation Completed By: ED Physician Summary of Radiographic Findings: CXR reveals, per ED physician, no acute disease. Course/Dx - Course Course Of Treatment: This patient is an 19 year old F BIBA to [facility] with a chief complaint of depression that began approximately two and half months ago. Patient reports SI with a rough plan. Physical Exam Findings: Depressed affect. Bloodwork and UA obtained. Patient medically cleared for MHE at 2028. In the ED course the patient was given Xanax. Patient will be discharged follow up from PCP. The patient is agreeable with this plan. - Differential Dx/Clinical Impression Differential Diagnosis/HQI/PQRI: Positive: Anxiety, Depression Provider Diagnosis: Anxiety Discharge - Sign-Out/Discharge Documenting (check all that apply): Patient Departure - Discharge home - Discharge Plan Condition: Stable Disposition: HOME Patient Education Materials: Generalized Anxiety Disorder (ED), Anxiety (ED) Referrals: Beatriz Tavarez MD [Primary Care Provider] - - Billing Disposition and Condition Condition: STABLE Disposition: Home - Attestation Statements Document Initiated by Scribe: Yes Documenting Scribe: Anusha Burroughs Provider For Whom Scribe is Documenting (Include Credential): Tao Ochoa MD Scribe Attestation: IAnusha, scribed for Tao Ochoa MD on 02/16/18 at 0159. Scribe Documentation Reviewed: Yes Provider Attestation: The documentation as recorded by the Anusha london accurately reflects the service I personally performed and the decisions made by , Tao Ochoa MD
[2018-02-15] MEDS ORDERED: ALPRAZolam TAB* 0.5 MG PO ONE (22:24)
[2018-02-16 02:52] VITALS: BP 107/63
--- NOTE | 2018-02-16 08:10 | RAD ---
Indication: Shortness of breath. 2 views of the chest including dual energy PA views are reviewed. No mediastinal shift is noted. Heart is of normal size and configuration. Lung felix appear clear. IMPRESSION: No active cardiopulmonary disease is noted. R0
== END 2018-02-16 01:45 | disposition home or self-care (01) ==
LOC: ED 18:51
DX: F41.9 Anxiety disorder, unspecified (principal); G47.9 Sleep disorder, unspecified; Z87.891 Personal history of nicotine dependence; R07.9 Chest pain, unspecified; R00.1 Bradycardia, unspecified
CPT/HCPCS: 36415; 71046; 80053; 80320; 80329; 84443; 84484; 85025; 99284; A9270-GY; G0480

== ENCOUNTER 2018-04-22 19:37 | Emergency (ER) | payer OTHER ==
--- OUTSIDE RECORDS SUMMARY | 2018-04-22 19:55 | XMS REPORT ---
:1960 External Reference #:[id number] Author Organization [facility] Address [address] [place] [address] Phone [phone] Care Team Providers Name Role Phone Beatriz Tavarez M.D. Care Team Information Community Development Worker Unavailable Beatriz Tavarez M.D. Primary Care Physician Unavailable Payers Type Date Identification Numbers Payment Provider Subscriber Medicaid Policy Number: [id number] [facility] [address] PayID: [id number] [address] [address] [place] [address] Problems Date Description Provider Status Onset: 10/15/2014 [...] Form Strength Qnty SIG Indications Ordering Provider Docusate Active Capsules 100mg 60caps 1 by mouth K59.00 Beatriz Sodium 018 twice a [place], day as M.D. needed Xanax Active Tablets 0.25mg 10tabs take 1 up F90.0 Beatriz 018 to twice a [place], day as M.D. needed for anxiety MDD 2 F10.21 F41.9 Trazodone 06/09/2017 Active Tablets 150mg 30tabs 1 tab by F41.9 Beatriz HCL mouth [place], every M.D. night Xanax 02/27/2018 - Hx Tablets 0.25mg 6tabs take 1 up Debi Cyndi 03/02/2018 to twice a Marti, [employer]IOR [employer] ADMINISTRATOR day as needed for anxiety MDD 2 Clonidine 01/26/2018 - Hx Tablets 0.2mg 30tabs 1 tab by I10 Beatriz HCL 02/17/2018 mouth [place], every day M.D. Vyvanse 05/12/2017 - Hx Capsules 30mg 60caps 2 by mouth F90.0 Beatriz 06/09/2017 every day [place], M.D. Meloxicam 01/27/2017 - Hx Tablets 15mg 30tabs take one M48.02 Beatriz 05/12/2017 tablet by [place] mouth M.D. daily prn with food Vyvanse 01/06/2017 - Hx Capsules 40mg 30caps 1 by mouth F90.0 [facility] 05/12/2017 every day Jose Tavarez [place] 01/06/2017 - Hx Cream 10%-11% 50gm apply to M48.02 Beatriz Neck & 08/17/2017 affected [place], Shoulder Rub area twice M.D. a day Trazodone 12/06/2016 - Hx Tablets 100mg 30tabs take 1 Radha HCL 06/09/2017 tablet by sekou Steele [employer] nightly at bedtime as needed Concerta 12/06/2016 - Hx Tablets ER 27mg 30tabs 1 by mouth [facility] 01/06/2017 every day Jose Tavarez Concerta 11/25/2016 - Hx Tablets ER 27mg 30tabs 1 by mouth [facility] 12/05/2016 every day Jose Tavarez Concerta 11/16/2016 - Hx Tablets ER 18mg 30tabs 1 tab by [facility] 11/25/2016 [facility], every day M.DCrystal as needed Vyvanse 10/30/2016 - Hx Capsules 40mg 30caps 1 by mouth F90.0 [facility] 11/16/2016 every day Jose Tavarez Docusate 03/11/2015 - Hx Capsules 100mg 60caps 1-2 by K59.09 [facility] Sodium 04/14/2016 mouth [place], twice a M.D. day as needed hard stools Abilify 12/03/2014 - Hx Tablets 5mg 30tabs 1 by mouth 300.00 [facility] 01/28/2015 every day Jose Tavarez Trazodone - Hx Tablets 150mg 30tabs take one Angelica HCL 12/06/2016 tablet by Pepito mouth at Afnp-C bedtime Abilify - Hx Tablets 5mg 1 by mouth Unknown 12/03/2014 every day, as needed Strattera - Hx Capsules 25mg 2 by mouth Unknown 04/14/2016 twice a day Vital Signs Date Vital Result Comment 04/17/2018 BP Systolic 120 mmHg BP Diastolic 72 mmHg Heart Rate 80 /min Body Temperature 98.6 F Respiratory Rate 20 /min Weight 148.00 lb 02/17/2018 BP Systolic 122 mmHg BP Diastolic 74 mmHg Heart Rate 60 /min Body Temperature 98.1 F Respiratory Rate 12 /min Height 67 inches 5'7" Weight 147.00 lb BMI (Body Mass Index) 23.0 kg/m2 01/26/2018 BP Systolic 128 mmHg BP Diastolic [...] Test Date Test Result H/L Range Note CBC Auto Diff 02/15/2018 White Blood Count 6.3 10^3/uL 3.5-10.8 Red Blood Count 4.30 10^6/uL 4.00-5.40 Hemoglobin 14.0 g/dL 14.0-18.0 Hematocrit 40 % Low 42-52 Mean Corpuscular Volume 92 fL 80-94 Mean Corpuscular Hemoglobin 33 pg High 27-31 Mean Corpuscular HGB Conc 35 g/dL 31-36 Red Cell Distribution Width 14 % 10.5-15 Platelet Count 162 10^3/uL 150-450 Mean Platelet Volume 7.9 um3 7.4-10.4 Abs Neutrophils 4.5 10^3/uL 1.5-7.7 Abs Lymphocytes 1.2 10^3/uL 1.0-4.8 Abs Monocytes 0.6 10^3/uL 0-0.8 Abs Eosinophils 0.1 10^3/uL 0-0.6 Abs Basophils 0 10^3/uL 0-0.2 Abs Nucleated RBC 0 10^3/uL Granulocyte % 70.4 % 38-83 Lymphocyte % 18.5 % Low 25-47 Monocyte % 9.6 % High 0-7 Eosinophil % 0.9 % 0-6 Basophil % 0.6 % 0-2 Nucleated Red Blood Cells % 0 Comp Metabolic Panel 02/15/2018 Sodium 136 mmol/L 135-145 Potassium 3.9 mmol/L 3.5-5.0 Chloride 98 mmol/L Low 101-111 Co2 Carbon Dioxide 32 mmol/L 22-32 Anion Gap 6 mmol/L 2-11 Glucose 79 mg/dL 70-100 Blood Urea Nitrogen 22 mg/dL 6-24 Creatinine 1.34 mg/dL High 0.67-1.17 BUN/Creatinine Ratio 16.4 8-20 Calcium 9.5 mg/dL 8.6-10.3 Total Protein 8.8 g/dL 6.4-8.9 Albumin 3.6 g/dL 3.2-5.2 Globulin 5.2 g/dL High 2-4 Albumin/Globulin Ratio 0.7 Low 1-3 Total Bilirubin 0.40 mg/dL 0.2-1.0 Alkaline Phosphatase 54 U/L 34-104 Alt 18 U/L 7-52 Ast 15 U/L 13-39 Egfr Non- 55.1 >60 Egfr 66.7 >60 1 Laboratory test finding 02/15/2018 Acetaminophen < 15 g/mL 2 Alcohol < 10 mg/dL <10 Salicylate < 2.50 mg/dL <30 TSH (Thyroid Stim Horm) 2.27 mcIU/mL 0.34-5.60 Troponin I 0.00 ng/mL <0.04 Comp Metabolic Panel 06/03/2017 Sodium 136 mmol/L [...] Egfr Non- 59.4 >60 Egfr 76.4 >60 3 Laboratory test finding 06/03/2017 Acetaminophen < 15 g/mL 4 Alcohol < 10 mg/dL <10 Salicylate < 2.50 mg/dL <30 TSH (Thyroid Stim Horm) 3.07 mcIU/mL 0.34-5.60 Urinalysis Profile 06/03/2017 Urine Color Yellow Urine Appearance Clear Urine Specific [place] 1.010 1.010-1.030 Urine pH 6.0 5-9 Urine Urobilinogen Negative Negative Urine Ketones Negative Negative Urine Protein Negative Negative Urine Leukocytes Negative Negative Urine Blood Negative Negative Urine Nitrite Negative Negative Urine Bilirubin Negative Negative Urine Glucose Negative Negative Urine Drug SCR 06/03/2017 Amphetamine Ur Screen Presumptive Posi <SEE None Detect 5 [facility] NOTE> Barbiturates Urine Screen None Detected None Detect Benzodiazepine Urine Screen None Detected None Detect Urine Cannabinoids Screen Presumptive Posi <SEE NOTE> None Detect 6 Urine Cocaine Screen None Detected None Detect Urine Opiates Screen None Detected None Detect Urine Phencyclidine Screen None Detected None Detect 7 Comprehensive Metabolic Prof 05/12/2017 Sodium 141 mEq/L 134-149 Potassium 4.2 mEq/L 3.6-5.5 Chloride 103 mEq/L 94-112 Carbon Dioxide 29 mEq/L 21-32 Glucose 88 mg/dL 70-105 BUN 25 mg/dL 6-26 Creatinine 1.1 mg/dL 0.6-1.4 BUN/Creat Ratio 22.7 CALC 8.0-36.0 Calcium 10.0 mg/dL 8.6-10.2 Total Protein 9.3 g/dL High 6.4-8.3 8 Albumin 4.0 g/dL 3.8-5.5 Globulin 5.3 g/dL High 2.0-4.8 A/G Ratio 0.8 CALC 0.6-2.3 Alk. Phosphatase 57 U/L 22-95 Alt (SGPT) 16 U/L 7-35 Ast (Sgot) 15 U/L 5-34 Total Bilirubin 0.3 mg/dL 0.2-1.3 GFR Non- >60 ml/min/1.73m^ >=60 GFR >60 ml/min/1.73m^ >=60 Toxassure Select 13 (MW) 05/12/2017 Report Summary FINAL 9 PDF . Laboratory test finding 05/12/2017 PDF [id number] SEE IMAGE Toxassure Select 13 (MW) 01/06/2017 Report Summary FINAL 10 PDF . Laboratory test finding 01/06/2017 PDF [id number] SEE IMAGE Laboratory test finding 10/30/2016 PDF [id number] SEE IMAGE CBC Electronic (a) 10/30/2016 WBC [...] Volume 6.9 5.5-11.0 Ua - Non Micro ([facility]) 10/30/2016 Appearance CLEAR Color YELLOW Glucose, Urine (Fma/CMC/CTX) NEG Bilirubin NEG Ketones NEG SP Grav 1.010 Blood NEG PH 6.0 Protein NEG Urobil 0.2 Nitrite NEG Leukocytes (a/CMC/Centrex) NEG Comprehensive Metabolic Prof 10/30/2016 Sodium 138 mEq/L 134-149 Potassium 4.4 mEq/L 3.6-5.5 Chloride 101 mEq/L 94-112 Carbon Dioxide 23 mEq/L 21-32 Glucose 100 mg/dL 70-105 BUN 22 mg/dL 6-26 Creatinine 0.9 mg/dL 0.6-1.4 BUN/Creat Ratio 24.4 CALC 8.0-36.0 Calcium 9.7 mg/dL 8.6-10.2 Total Protein 9.2 g/dL High 6.4-8.3 11 Albumin 4.0 g/dL 3.8-5.5 Globulin 5.2 g/dL [...] Select 13 (MW) 10/30/2016 Report Summary FINAL 12 PDF . Lipid Profile 10/30/2016 Cholesterol 114 mg/dL Low 120-200 13 Triglycerides 69 mg/dL 30-200 HDL Cholesterol 43 mg/dL 30-70 LDL (Calculated) 57 CALC 0-129 VLDL Cholesterol 14 mg/dL 0-50 HDL Risk Factor 2.7 CALC 0.0-4.4 Urinalysis Profile 07/27/2016 Urine Color Yellow Urine Appearance Clear Urine Specific [place] 1.015 1.010-1.030 Urine pH 6.0 5-9 Urine Urobilinogen Negative Negative Urine Ketones Trace Negative Urine Protein Negative Negative Urine Leukocytes Negative Negative Urine Blood Negative Negative * * Negative 14 Urine Nitrite Negative Negative Urine Bilirubin Negative [...] test finding 07/27/2016 Acetaminophen < 15 g/mL 15 Alcohol < 10 mg/dL <10 Salicylate < [...] Egfr Non- 68.1 >60 Egfr 87.5 >60 16 Urine Drug SCR ED & 07/27/2016 Amphetamine Ur Screen None Detected None Detect Pain Clinic Barbiturates Urine Screen None Detected None Detect Benzodiazepine Urine Screen None Detected None Detect Urine Cannabinoids Screen Presumptive Posi <SEE NOTE> None Detect 17 Urine Cocaine Screen None Detected None Detect Urine Opiates Screen None Detected None Detect Urine Phencyclidine Screen Presumptive Posi <SEE NOTE> None Detect 18 Laboratory test finding 04/14/2016 TSH 1.53 mIU/L [...] High 11.6-13.7 Mean Platelet Volume 6.6 5.5-11.0 [facility] Metabolic [facility] 04/14/2016 Sodium 139 mEq/L 134-149 Potassium 4.4 mEq/L 3.6-5.5 Chloride 98 mEq/L 94-112 Carbon Dioxide 29 mEq/L 21-32 Glucose 82 mg/dL 70-105 BUN 20 mg/dL 6-26 Creatinine 1.1 mg/dL 0.6-1.4 BUN/Creat Ratio 18.2 CALC 8.0-36.0 Calcium 9.9 mg/dL 8.6-10.2 Total Protein 9.4 g/dL High 6.4-8.3 19 Albumin 4.2 g/dL 3.8-5.5 Globulin 5.2 g/dL [...] <50 ug/mL Toxic concentration: >120 ug/mL 3 Because ethnic data is not always readily [...] 15-29 5 Kidney failure <15 (or dialysis) 4 Therapeutic concentration: <50 ug/mL Toxic concentration: >120 ug/mL 5 Presumptive Positive Presumptive positive results are unconfirmed. 6 Presumptive Positive Presumptive positive results are unconfirmed. 7 The urine specimen was tested at the listed cutoffs: Drug class test level (ng/mL) Amphetamines 500 Barbiturates 200 Benzodiazepine metabolites 200 Cocaine metabolites 150 Cannabinoids 50 Opiates 300 Pcp 25 Specimen was received without chain of custody. Results should be used for medical purposes only. 8 consistent w/ previous results 9 TOXASSURE SELECT 13 (MW) Test Result Flag [...] Trazodone For clinical consultation, please call . 10 TOXASSURE SELECT 13 (MW) Test Result [...] For clinical consultation, please call . 11 consistent w/ previous results 12 TOXASSURE SELECT 13 (MW) Test Result Flag [...] Trazodone For clinical consultation, please call . 13 RESULTS VERIFIED BY REPEAT ANALYSIS 14 *Ascorbic acid is present which may interfere with detection of blood. 15 Therapeutic concentration: <50 ug/mL Toxic concentration: >120 ug/mL 16 Because ethnic data is not always readily [...] 15-29 5 Kidney failure <15 (or dialysis) 17 Presumptive Positive Presumptive positive results are unconfirmed. 18 Presumptive Positive Presumptive positive results are unconfirmed. The urine specimen was tested at the listed cutoffs: Drug class test level (ng/mL) Amphetamines 500 Barbiturates 200 Benzodiazepine metabolites 200 Cocaine metabolites 150 Cannabinoids 50 Opiates 300 Pcp 25 Specimen was received without chain of custody. Results should be used for medical purposes only. 19 RESULTS VERIFIED BY REPEAT ANALYSIS Procedures Description No Information Encounters Type Date Location Provider CPT E/M Dx Office Visit 02/17/2018 8:45a Main Office Debi Marti, J[employer]IOR LINUX ADMINISTRATOR 29426 F41.9 Office Visit 01/26/2018 9:00a Main Office Beatriz Tavarez M.D. 04623 F90.0 F10.21 I10 Z12.11 Office Visit 08/29/2017 7:30p Main Office Beatriz Jose Tavarez 01747 F90.0 F41.9 Z12.11 Office Visit 06/09/2017 11:20a Main Office Beatriz Tavarez M.D. 16341 F90.0 F41.9 F06.8 Office Visit 05/12/2017 11:30a Main Office Beatriz Tavarez M.D. 94051 F90.0 Z79.899 Office Visit 01/27/2017 11:30a Main Office Beatriz Tavarez M.D. 69632 F90.0 M48.02 Office Visit 01/06/2017 11:00a Main Office Beatriz Tavarez M.D. 01005 F90.0 F10.21 R63.4 R03.0 M48.02 Z59.6 Office Visit 12/06/2016 3:00p Main Office Beatriz Tavarez M.D. 43589 F90.0 Office Visit 10/30/2016 9:20a Main Office Beatriz Tavarez M.D. 74606 F90.0 F10.21 R94.5 Z13.220 R63.4 Z12.11 Office Visit 04/14/2016 2:45p Main Office Angelica Beyer, Afnp-C 91707 R19.4 R11.0 G47.00 F10.21 M79.672 F90.2 Office Visit 03/11/2015 3:00p Main Office Beatriz Tavarez M.D. 95555 M48.02 K59.09 M25.562 Office Visit 01/28/2015 10:45a Main Office Radha Steele, [place] 93195 M25.562 Office Visit 12/03/2014 10:40a Main Office Beatriz Tavarez M.D. 58338 723.0 300.00 794.8 V77.91 Office Visit 08/28/2014 1:00p Main Office Nancy Kennedy, [place] [address]2934 723.1 719.46 719.41 300.00 V70.0 Plan of Care Future Appointment(s):10/12/2018 10:20 am - Beatriz Tavarez M.D. at Main Ulyyii3905/2018 8:15 am - Beatriz Tavarez M.D. at Main Ocbvmk0004/17/2018 - Beatriz Tavarez M.D.F90.0 Attn-defct hyperactivity disorder, predom inattentive typeNew Medication:Xanax 0.25 mgComments:no further stimulants given prior vvyanse misuse; doesn't want other medication (wellbutrin, strattera) for nowF10.21 Alcohol dependence, in remissionNew Medication:Xanax 0.25 mgComments: congratulations on remaining mqbtiJ72.11 Encounter for screening for malignant neoplasm of colonNew Labs:CologuardComments:counseled on colon cancer screening ; elects for cologuard testing, defers adhioqxxpiaW28.00 Constipation, unspecifiedNew Medication:Docusate Sodium 100 mgComments:plenty of fluids, fruits and veggies with fiber; can use polyethylene glycol 1 capful a day as needed or can use colace 1 tab twice a day as needed for constipation; call if no bowel movement in 3-4 daysF41.9 Anxiety disorder, unspecifiedNew Medication: Xanax 0.25 mgComments:not for routine use, discussed for PANIC only, will only give small amounts to not be used often No alcohol or driving while on these medications. Controlled substances can be addictive and habit forming. No refills can be given on the prescription and must be picked up in person from the pharmacy. Noreplacement of lost or stolen medications. NO early refills will be given even if medications are lost or stolen. If drug abuse is suspected, the medication will be discontinued. You need to keep follow up appointments for additional refills.Follow up:6moAllComments:~B_~U_Medication Management~b_~u_ Patient Understands medications he's taking? Yes No Are there Barriers to Adherence? Yes No Has the patient been asked about herbal supplements and therapies, and OTC meds? Yes No
--- NOTE | 2018-04-22 20:14 | ED ---
Substance Abuse/Use - HPI Summary HPI Summary: The patient is a 57 y/o M presenting to [facility] with a chief complaint of feeling of disorientation after using dextromethorphan for the past few weeks with the last dose at 14:00. He states he has used the medication a few years ago and stopped using it, but recently started using it again to experience a hallucinogenic feeling to deal with feelings of depression that he is having recently as a results of unemployment and housing difficulties. He reports that he obtained the dextromethorphan from [employer], and he doesn't know exactly how much he took, but he took both the liquid and pill form. His symptoms after intake include a tingling of his head and heart palpitations. He does not report any medical hx at this time. - History Of Current Complaint Chief Complaint: EDSubstanceAbuse Stated Complaint: MHE Hx Obtained From: Patient Onset/Duration of Drug/ETOH Abuse: Weeks Ingestion History: Type/Name Of Drug - dextromethorphan, Amount Ingested - unknown, Approximate Time Of Ingestion - 14:00 States Increased Use Since: the last few weeks Timing Of Abuse: Daily Severity Initially: Mild Severity Currently: Moderate Character: Depressed, Other - disoriented Aggravating Factor(s): Other - recent unemployment and housing troubles Alleviating Factor(s): Nothing Associated Signs And Symptoms: Palpitations, Other: - disorientation, tingling in head - Allergies/Home Medications Allergies/Adverse Reactions: Allergies Allergy/AdvReac Type Severity Reaction Status Date / Time No Known Allergies Allergy Verified 04/22/18 19:47 Home Medications: Home Medications ALPRAZolam [Alprazolam] 1 tab PO Q6H PRN 04/22/18 [History Confirmed 04/22/18] PMH/Surg Hx/FS Hx/Imm Hx Cardiovascular History: Reports: Other Cardiovascular Problems/Disorders - unspecific cardiac issues per H+P Respiratory History: Denies: Hx Asthma, Hx Chronic Bronchitis Musculoskeletal History: Reports: Hx Back Problems - spondylosis, Other Musculoskeletal History - hx of spinal stenosis Sensory History: Denies: Hx Contacts or Glasses Opthamlomology History: Denies: Hx Contacts or Glasses Neurological History: Reports: Hx Seizures - With ETOH detox Psychiatric History: Reports: Hx Anxiety, Hx Attention Deficit Hyperactivity Disorder, Hx Depression, Hx Inpatient Treatment, Hx Community Mental Health Tx, Hx Suicide Attempt - 1999, Hx of Violent Episodes Against Others, Hx Substance Abuse Denies: Hx Eating Disorder, Hx Panic Disorder, Hx Post Traumatic Stress Disorder, Hx Schizophrenia, Hx Bipolar Disorder, Other Psychiatric Issues/ Disorders - Surgical History Surgery Procedure, Year, and Place: No surgical history - Immunization History Date of Tetanus Vaccine: unk Date of Influenza Vaccine: never Infectious Disease History: No Infectious Disease History: Reports: Hx Hepatitis Denies: Traveled Outside the [place] in Last 30 Days - Family History Known Family History: Positive: Other - Alcohol abuse Negative: Hypertension Family History: No FHx schizophrenia - Social History Alcohol Use: None Hx Substance Use: Yes Substance Use Type: Reports: Marijuana, Other Substance Use Comment - Amount & Last Used: cough syrup Hx Tobacco Use: Yes Smoking Status (MU): Former Smoker Type: Cigarettes Have You Smoked in the Last Year: No Review of Systems Positive: Palpitations Neurological: Other - disorientation, tingling in head Positive: Depressed, Other - increased use of dextromethorphan All Other Systems Reviewed And Are Negative: Yes Physical Exam - Summary Physical Exam Summary: Appearance: Well-appearing, Well-nourished, lying in bed comfortably Skin: Warm, dry, no obvious rash Eyes: sclera anicteric, no conjunctival pallor ENT: mucous membranes moist, pharynx appears normal Neck: Supple, nontender Respiratory: Clear to auscultation, no signs of respiratory distress Cardiovascular: Normal S1, S2. No murmurs. Normal distal pulses in tibial and radial bilaterally. Abdomen: Soft, nontender, normal active bowel sounds present Musculoskeletal: Normal, Strength/ROM Intact Neurological: A&Ox3, awake and alert, mentation is normal, speech is fluent and appropriate Psychiatric: affect is normal, does not appear anxious or depressed Triage Information Reviewed: Yes Vital Signs On Initial Exam: Initial Vitals Temp Pulse Resp BP Pulse Ox 99.2 F 91 18 148/99 99 04/22/18 19:45 04/22/18 19:45 04/22/18 19:45 04/22/18 19:45 04/22/18 19:45 Vital Signs Reviewed: Yes Diagnostics - Vital Signs Vital Signs Temp Pulse Resp BP Pulse Ox 04/22/18 19:45 99.2 F 91 18 148/99 99 - Laboratory Result Diagrams: 04/22/18 19:50 04/22/18 19:50 Lab Statement: Any lab studies that have been ordered have been reviewed, and results considered in the medical decision making process. Course/Dx - Course Course Of Treatment: The patient is a 57 y/o M presenting to [facility] with a chief complaint of feeling of disorientation after using dextromethorphan for the past few weeks with the last dose at 14:00. He states he has used the medication a few years ago and stopped using it, but recently started using it again to experience a hallucinogenic feeling to deal with feelings of depression that he is having recently as a results of unemployment and housing difficulties. Obtained the dextromethorphan from [employer], and he doesn't know exactly how much he took, but he took both the liquid and pill form. His symptoms after intake include a tingling of his head and heart palpitations. He does not report any medical hx at this time. Upon physical exam, the patient exhibits no acute abnormalities. In the ED course, the patient was given Ativan and Nicotine inhaler. Blood work and UA reveals elevated globulin and cannabinoids. Mental health timber girdler Zena Floyd reports that the patient will be discharged home with a diagnosis of substance abuse with outpatient treatment recommended by Dr. Badillo. Patient agrees with this plan and understands the need for return to the ED for any new or worsening symptoms. - Diagnoses Provider Diagnoses: Substance abuse Discharge - Sign-Out/Discharge Documenting (check all that apply): Patient Departure - Patient will be discharged home. - Discharge Plan Condition: Stable Disposition: HOME Referrals: [facility] [Outside] - 1 Week (It is recommended that you consider scheduling an appointment for intake to discuss substance abuse treatment options. ) [facility] [Outside] - 1 Week (We recommend that you call [facility] to schedule an appointment for intake to resume outpatient mental health treatment. ) Beatriz Tavarez MD [Primary Care Provider] - - Billing Disposition and Condition Condition: STABLE Disposition: Home - Attestation Statements Document Initiated by Scribe: Yes Documenting Scribe: Rosalva Matute Provider For Whom Tj is Documenting (Include Credential): Dr. Pj Clark MD Scribe Attestation: Rosalva Zhang scribed for Dr. Pj Clark MD on 04/23/18 at 0408. Scribe Documentation Reviewed: Yes Provider Attestation: The documentation as recorded by the Rosalva london accurately reflects the service I personally performed and the decisions made by me, Dr. Pj Clark MD Status of Tj Document: Viewed
[2018-04-22] MEDS ORDERED: Nicotine Inhaler* 10 MG AMP INH PRN (20:15)
[2018-04-22] MEDS ORDERED: LORazepam TAB(*) 1 MG PO PRN (20:15)
[2018-04-22 20:56] LABS: ABS Basophils 0 10^3/ul (0-0.2); ABS Eosinophils 0.1 10^3/ul (0-0.6); ABS Monocytes 0.7 10^3/ul (0-0.8); ABS Neutrophils 6.4 10^3/ul (1.5-7.7); ABS Nucleated RBC 0 10^3/ul; Eosinophil % 0.8 %; Hematocrit 41 % (42-52); Hemoglobin 14.3 g/dl (14.0-18.0); Lymphocyte % 12.4 %; Mean Corpuscular HGB Conc 35 g/dl (31-36); Mean Corpuscular Hemoglobin 32 pg (27-31); Mean Corpuscular Volume 92 fL (80-94); Mean Platelet Volume 7.9 fL (7.4-10.4); Nucleated Red Blood Cells % 0.1; Platelet Count 216 10^3/ul (150-450); Red Blood Count 4.44 10^6/ul (4.00-5.40); Red Cell Distribution Width 14 % (10.5-15); White Blood Count 8.3 10^3/ul (3.5-10.8)
[2018-04-22 21:05] LABS: ALT 19 U/L (7-52); AST 18 U/L (13-39); Albumin 3.6 g/dL (3.2-5.2); Albumin/Globulin Ratio 0.6 (1-3); Alkaline Phosphatase 65 U/L (34-104); Anion Gap 7 mmol/L (2-11); BUN/Creatinine Ratio 19.7 (8-20); Blood Urea Nitrogen 24 mg/dL (6-24); CO2 Carbon Dioxide 28 mmol/L (22-32); Calcium 9.5 mg/dL (8.6-10.3); Chloride 95 mmol/L (101-111); EGFR Non-African American 61.4 (>60); Globulin 5.9 g/dL (2-4); Glucose 95 mg/dL (70-100); Sodium 130 mmol/L (135-145); Total Protein 9.5 g/dL (6.4-8.9)
[2018-04-22 21:10] LABS: Acetaminophen < 15 mcg/mL; Alcohol < 10 mg/dL (<10); Salicylate < 2.50 mg/dL (<30)
[2018-04-22 21:25] LABS: TSH (Thyroid Stimulating Horm) 1.96 mcIU/mL (0.34-5.60)
[2018-04-22 22:59] LABS: Urine Appearance Clear; Urine Bilirubin Negative (Negative); Urine Blood Negative (Negative); Urine Color Straw; Urine Glucose Negative (Negative); Urine Ketones Negative (Negative); Urine Nitrite Negative (Negative); Urine Protein Negative (Negative); Urine Specific Gravity 1.005 (1.010-1.030); Urine Urobilinogen Negative (Negative)
[2018-04-22 23:14] LABS: Barbiturates Urine Screen None Detected (None Detect); Benzodiazepine Urine Screen None Detected (None Detect); Urine Cannabinoids Screen Presumptive Positive (None Detect)
[2018-04-23] MEDS ORDERED: LORazepam TAB(*) 1 MG ONE (02:14)
[2018-04-23 04:25] VITALS: BP 145/71
== END 2018-04-23 04:25 | disposition home or self-care (01) ==
LOC: ED 19:37
DX: F19.10 Other psychoactive substance abuse, uncomplicated (principal); R00.2 Palpitations; R41.0 Disorientation, unspecified; R20.2 Paresthesia of skin; Z87.891 Personal history of nicotine dependence
CPT/HCPCS: 36415; 80053; 80307; 80320; 80329; 81003; 84443; 85025; 99284; A9270-GY; G0480

== ENCOUNTER 2018-05-12 14:44 | Emergency (ER) | payer OTHER ==
[2018-05-12] MEDS ORDERED: Nicotine Inhaler* 10 MG AMP INH PRN (18:03)
[2018-05-12 18:35] LABS: ABS Basophils 0 10^3/ul (0-0.2); ABS Eosinophils 0.1 10^3/ul (0-0.6); ABS Lymphocytes 1.2 10^3/ul (1.0-4.8); ABS Monocytes 0.5 10^3/ul (0-0.8); ABS Neutrophils 6.2 10^3/ul (1.5-7.7); ABS Nucleated RBC 0 10^3/ul; Eosinophil % 0.8 %; Hematocrit 42 % (42-52); Hemoglobin 14.7 g/dl (14.0-18.0); Lymphocyte % 15.4 %; Mean Corpuscular HGB Conc 35 g/dl (31-36); Mean Corpuscular Hemoglobin 32 pg (27-31); Mean Corpuscular Volume 93 fL (80-94); Mean Platelet Volume 7.5 fL (7.4-10.4); Nucleated Red Blood Cells % 0; Platelet Count 218 10^3/ul (150-450); Red Blood Count 4.53 10^6/ul (4.00-5.40); Red Cell Distribution Width 13 % (10.5-15)
[2018-05-12 18:51] LABS: ALT 28 U/L (7-52); AST 21 U/L (13-39); Albumin 4.1 g/dL (3.2-5.2); Albumin/Globulin Ratio 0.7 (1-3); Alkaline Phosphatase 70 U/L (34-104); Anion Gap 7 mmol/L (2-11); BUN/Creatinine Ratio 12.7 (8-20); Blood Urea Nitrogen 15 mg/dL (6-24); CO2 Carbon Dioxide 27 mmol/L (22-32); Calcium 9.7 mg/dL (8.6-10.3); Chloride 94 mmol/L (101-111); EGFR African American 77.3 (>60); EGFR Non-African American 63.9 (>60); Glucose 100 mg/dL (70-100); Potassium 4.3 mmol/L (3.5-5.0); Sodium 128 mmol/L (135-145); Total Protein 10.1 g/dL (6.4-8.9)
[2018-05-12 18:57] LABS: Acetaminophen < 15 mcg/mL; Alcohol < 10 mg/dL (<10); Salicylate < 2.50 mg/dL (<30)
[2018-05-12 19:12] LABS: TSH (Thyroid Stimulating Horm) 1.94 mcIU/mL (0.34-5.60)
--- NOTE | 2018-05-12 20:04 | ED ---
Psychiatric Complaint - HPI Summary HPI Summary: A 57 y/o male presents to the ED c/o boredom reaching 9/10 in severity. In the ED room, the patient has a pulse of 90 BPM, respiratory rate of 16, and blood pressure of 146/98. As per triage, "pt states he has been drinking cough medicine to get high for apox 2 months. Pt denies SI/HI. States he doesn't trust himself while on this medication. Also states he is constipated and has been taking stool softeners". He stated that he recently contacted his first father in 27 years. He denies any depression or SI. He noted that he would like help so he does not keep doing the same thing over and over again (cough medicine). - History Of Current Complaint Chief Complaint: EDMentalHealth Time Seen by Provider: 05/12/18 18:03 Hx Obtained From: Patient Onset/Duration: Sudden Onset, Still Present Timing: Constant Severity Currently: None Aggravating Factor(s): Recent Stress Alleviating Factor(s): Nothing Associated Signs And Symptoms: Positive: Negative Related History: Positive For: Prior Psychiatric Issues Has Suicidal: Denies: Thoughts - Allergies/Home Medications Allergies/Adverse Reactions: Allergies Allergy/AdvReac Type Severity Reaction Status Date / Time No Known Allergies Allergy Verified 04/22/18 19:47 Home Medications: Home Medications Docusate CAP* [Colace Cap*] 100 mg PO BID 05/12/18 [History Confirmed 05/12/18] PMH/Surg Hx/FS Hx/Imm Hx Cardiovascular History: Reports: Other Cardiovascular Problems/Disorders - unspecific cardiac issues per H+P Respiratory History: Denies: Hx Asthma, Hx Chronic Bronchitis Musculoskeletal History: Reports: Hx Back Problems - spondylosis, Other Musculoskeletal History - hx of spinal stenosis Sensory History: Denies: Hx Contacts or Glasses Opthamlomology History: Denies: Hx Contacts or Glasses Neurological History: Reports: Hx Seizures - With ETOH detox Psychiatric History: Reports: Hx Anxiety, Hx Attention Deficit Hyperactivity Disorder, Hx Depression, Hx Inpatient Treatment, Hx Community Mental Health Tx, Hx Suicide Attempt - 1999, Hx of Violent Episodes Against Others, Hx Substance Abuse Denies: Hx Eating Disorder, Hx Panic Disorder, Hx Post Traumatic Stress Disorder, Hx Schizophrenia, Hx Bipolar Disorder, Other Psychiatric Issues/ Disorders - Surgical History Surgery Procedure, Year, and Place: No surgical history - Immunization History Date of Tetanus Vaccine: unk Date of Influenza Vaccine: never Infectious Disease History: No Infectious Disease History: Reports: Hx Hepatitis Denies: Traveled Outside the [place] in Last 30 Days - Family History Known Family History: Positive: Other - Alcohol abuse Negative: Hypertension Family History: No FHx schizophrenia - Social History Alcohol Use: None Hx Substance Use: Yes Substance Use Type: Reports: Marijuana, Other Substance Use Comment - Amount & Last Used: cough syrup Hx Tobacco Use: Yes Smoking Status (MU): Former Smoker Type: Cigarettes Have You Smoked in the Last Year: No Review of Systems Negative: Fever, Chills Negative: Erythema Negative: Sore Throat Negative: Chest Pain Negative: Shortness Of Breath Negative: Abdominal Pain, Vomiting, Nausea Negative: dysuria, hematuria Negative: Myalgia, Edema Negative: Rash Neurological: Other - NEGATIVE: DIZZINESS Psychological: Other - NEGATIVE: SI All Other Systems Reviewed And Are Negative: Yes Physical Exam - Summary Physical Exam Summary: Constitutional: Well-developed, Well-nourished, Alert. (-) Distressed Skin: Warm, Dry HENT: Normocephalic; Atraumatic Eyes: Conjunctiva normal Neck: Musculoskeletal ROM normal neck. (-) JVD, (-) Stridor, (-) Tracheal deviation Cardio: Rhythm regular, rate normal, Heart sounds normal; Intact distal pulses; The pedal pulses are 2+ and symmetric. Radial pulses are 2+ and symmetric. (-) Murmur Pulmonary/Chest wall: Effort normal. (-) Respiratory distress, (-) Wheezes, (-) Rales Abd: Soft, (-) epigastric tenderness, (-) Distension, (-) Guarding, (-) Rebound Musculoskeletal: (-) Edema Lymph: (-) Cervical adenopathy Neuro: Alert, Oriented x3 Psych: Mood and affect Normal Triage Information Reviewed: Yes Vital Signs On Initial Exam: Initial Vitals Temp Pulse Resp BP Pulse Ox 96.8 F 84 18 149/102 97 05/12/18 14:51 05/12/18 14:51 05/12/18 14:51 05/12/18 14:51 05/12/18 14:51 Vital Signs Reviewed: Yes Diagnostics - Vital Signs Vital Signs Temp Pulse Resp BP Pulse Ox 05/12/18 18:15 90 98 05/12/18 18:14 87 149/95 97 05/12/18 17:17 97.6 F 76 18 160/97 97 05/12/18 14:51 96.8 F 84 18 149/102 97 - Laboratory Lab Results: Lab Results 05/12/18 05/12/18 Range/Units 18:29 18:29 WBC 8.0 (3.5-10.8) 10^3/ul RBC 4.53 (4.00-5.40) 10^6/ul Hgb 14.7 (14.0-18.0) g/dl Hct 42 (42-52) % MCV 93 (80-94) fL MCH 32 H (27-31) pg MCHC 35 (31-36) g/dl RDW 13 (10.5-15) % Plt Count 218 (150-450) 10^3/ul MPV 7.5 (7.4-10.4) fL Neut % (Auto) 76.6 % Lymph % (Auto) 15.4 % Fountain % (Auto) 6.8 % Eos % (Auto) 0.8 % Baso % (Auto) 0.4 % Absolute Neuts (auto) 6.2 (1.5-7.7) 10^3/ul Absolute Lymphs (auto) 1.2 (1.0-4.8) 10^3/ul Absolute Monos (auto) 0.5 (0-0.8) 10^3/ul Absolute Eos (auto) 0.1 (0-0.6) 10^3/ul Absolute Basos (auto) 0 (0-0.2) 10^3/ul Absolute Nucleated RBC 0 10^3/ul Nucleated RBC % 0 Sodium 128 L (135-145) mmol/L Potassium 4.3 (3.5-5.0) mmol/L Chloride 94 L (101-111) mmol/L Carbon Dioxide 27 (22-32) mmol/L Anion Gap 7 (2-11) mmol/L BUN 15 (6-24) mg/dL Creatinine 1.18 H (0.67-1.17) mg/dL Est GFR ( Amer) 77.3 (>60) Est GFR (Non-Af Amer) 63.9 (>60) BUN/Creatinine Ratio 12.7 (8-20) Glucose 100 (70-100) mg/dL Calcium 9.7 (8.6-10.3) mg/dL Total Bilirubin 0.60 (0.2-1.0) mg/dL AST 21 (13-39) U/L ALT 28 (7-52) U/L Alkaline Phosphatase 70 (34-104) U/L Total Protein 10.1 H (6.4-8.9) g/dL Albumin 4.1 (3.2-5.2) g/dL Globulin 6.0 H (2-4) g/dL Albumin/Globulin Ratio 0.7 L (1-3) TSH 1.94 (0.34-5.60) mcIU/mL Salicylates < 2.50 (<30) mg/dL Acetaminophen < 15 mcg/mL Serum Alcohol < 10 (<10) mg/dL Result Diagrams: 05/12/18 18:29 05/12/18 18:29 Lab Statement: Any lab studies that have been ordered have been reviewed, and results considered in the medical decision making process. Course/Dx - Course Course Of Treatment: A 57 y/o male presents to the ED c/o boredom reaching 9/10 in severity. In the ED room, the patient has a pulse of 90 BPM, respiratory rate of 16, and blood pressure of 146/98. As per triage, "pt states he has been drinking cough medicine to get high for apox 2 months. Pt denies SI/HI. States he doesn't trust himself while on this medication. Also states he is constipated and has been taking stool softeners". He stated that he recently contacted his first father in 27 years. He denies any depression or SI. He noted that he would like help so he does not keep doing the same thing over and over again (cough medicine). No laboratory scans were done. Hematology, Chemistry, and toxicology screens were done. No significant laboratory abnormalities were found. In the ED course, the patient received Nicotine. Patient care was discussed with psychiatrist, Dr. Rodolfo Ramsay, who recommends discharging patient. Patient will be discharged with a diagnosis of dextromethorphan use disorder, mild. Patient is to follow up with [facility] and primary care provider in 2-3 days. Patient is agreeable with this plan. - Differential Dx/Clinical Impression Provider Diagnosis: Dextromethorphan use disorder, mild - Physician Notifications Discussed Care Of Patient With: Rodolfo Ramsay Time Discussed With Above Provider: 21:04 Instructed by Provider To: Other - RECOMMENDS DISCHARGING HOME. Discharge - Sign-Out/Discharge Documenting (check all that apply): Patient Departure - DISCHARGE - Discharge Plan Condition: Stable Disposition: HOME Patient Education Materials: Polysubstance Abuse (ED) Referrals: Beatriz Tavarez MD [Primary Care Provider] - 3 Days [facility] [Outside] - 3 Days Additional Instructions: FOLLOW UP WITH [facility] IN 3 DAYS. FOLLOW UP WITH PRIMARY CARE PROVIDER IN 3 DAYS. RETURN TO ED FOR ANY NEW OR WORSENING SYMPTOMS. - Attestation Statements Document Initiated by Scribe: Yes Documenting Scribe: Emeterio De La Torre Provider For Whom Scribe is Documenting (Include Credential): Sam Johnson MD Scribe Attestation: Emeterio Zhang, scribed for Sam Johnson MD on 05/12/18 at 6506. Status of Scribe Document: Ready
[2018-05-12 21:44] VITALS: BP 155/87
== END 2018-05-12 21:30 | disposition home or self-care (01) ==
LOC: ED 14:44
DX: F19.10 Other psychoactive substance abuse, uncomplicated (principal); Z87.891 Personal history of nicotine dependence
CPT/HCPCS: 36415; 80053; 80320; 80329; 84443; 85025; 99284; G0480

== ENCOUNTER 2018-05-16 19:34 | Emergency (ER) | payer OTHER ==
--- NOTE | 2018-05-16 20:59 | ED ---
GI/ HPI - HPI Summary HPI Summary: Pt is a 57 y/o male who presents to the ED c/o constipation. He was here on 05/12 and 05/13/18 for his constipation as well, and was given Colace. Pt states that he has been drinking lots of water, and still is not able to move his bowels. He requests an enema. He notes intermittent cramping pain, rated 5/10 in severity. Pt denies any N/V, or fever. Pt states he has a very healthy diet. He denies every getting a colonoscopy. Pt abuses dextromethorphan, and denies use of any other drugs or pain medications. - History of Current Complaint Chief Complaint: EDGeneral Time Seen by Provider: 05/16/18 20:54 Stated Complaint: GENERAL ILLNESS Hx Obtained From: Patient Onset/Duration: Started Days Ago - 1 week ago, Still Present Timing: Intermittent Severity: Moderate Pain Intensity: 5 Pain Characteristics: Cramping Associated Signs and Symptoms: Positive: Negative Aggravating Factor(s): Nothing Alleviating Factor(s): Nothing - Additional Pertinent History Primary Care Physician: [id number] - Allergy/Home Medications Allergies/Adverse Reactions: Allergies Allergy/AdvReac Type Severity Reaction Status Date / Time No Known Allergies Allergy Verified 05/16/18 19:39 PMH/Surg Hx/FS Hx/Imm Hx Cardiovascular History: Reports: Other Cardiovascular Problems/Disorders - unspecific cardiac issues per H+P Respiratory History: Denies: Hx Asthma, Hx Chronic Bronchitis Musculoskeletal History: Reports: Hx Back Problems - spondylosis, Other Musculoskeletal History - hx of spinal stenosis Sensory History: Denies: Hx Contacts or Glasses Opthamlomology History: Denies: Hx Contacts or Glasses Neurological History: Reports: Hx Seizures - With ETOH detox Psychiatric History: Reports: Hx Anxiety, Hx Attention Deficit Hyperactivity Disorder, Hx Depression, Hx Inpatient Treatment, Hx Community Mental Health Tx, Hx Suicide Attempt - 1999, Hx of Violent Episodes Against Others, Hx Substance Abuse Denies: Hx Eating Disorder, Hx Panic Disorder, Hx Post Traumatic Stress Disorder, Hx Schizophrenia, Hx Bipolar Disorder, Other Psychiatric Issues/ Disorders - Surgical History Surgery Procedure, Year, and Place: No surgical history - Immunization History Date of Tetanus Vaccine: unk Date of Influenza Vaccine: never Infectious Disease History: No Infectious Disease History: Reports: Hx Hepatitis Denies: Traveled Outside the [place] in Last 30 Days - Family History Known Family History: Positive: Other - Alcohol abuse Negative: Hypertension Family History: No FHx schizophrenia - Social History Alcohol Use: None Hx Substance Use: Yes Substance Use Type: Reports: Marijuana, Other Substance Use Comment - Amount & Last Used: cough syrup Hx Tobacco Use: Yes Smoking Status (MU): Former Smoker Type: Cigarettes Have You Smoked in the Last Year: No Review of Systems Negative: Fever Positive: Other - constipation. Negative: Vomiting, Nausea All Other Systems Reviewed And Are Negative: Yes Physical Exam - Summary Physical Exam Summary: Appearance: Well appearing, no pain distress Skin: warm, dry, reflects adequate perfusion Head/face: normal Eyes: EOMI, VASYL ENT: mucous membranes moist Neck: supple, non-tender Respiratory: CTA, breath sounds present Cardiovascular: RRR, pulses symmetrical Abdomen: non-tender, soft Bowel Sounds: present Musculoskeletal: normal, strength/ROM intact Neuro: normal, sensory motor intact, A&Ox3 Triage Information Reviewed: Yes Vital Signs On Initial Exam: Initial Vitals Temp Pulse Resp BP Pulse Ox 98.7 F 84 18 164/106 97 05/16/18 19:36 05/16/18 19:36 05/16/18 19:36 05/16/18 19:36 05/16/18 19:36 Vital Signs Reviewed: Yes Procedures - Procedure Summary Procedure Summary: Soap suds enema. Diagnostics - Vital Signs Vital Signs Temp Pulse Resp BP Pulse Ox 05/16/18 19:36 98.7 F 84 18 164/106 97 - Laboratory Lab Statement: Any lab studies that have been ordered have been reviewed, and results considered in the medical decision making process. GIGU Course/Dx - Course Course Of Treatment: Nurse's notes reviewed. Patient with complaint of constipation without significant abdominal tenderness or fever. Abdomen soft and nontender. Patient is verbally aggressive with the staff here. He was given an enema here and produce some stool. He will be placed on MiraLAX and o' clock suppositories. Follow-up however care physician. - Diagnoses Differential Diagnoses - Male: Adverse Drug Effect, Fecal Impaction Provider Diagnoses: Chronic constipation Discharge - Sign-Out/Discharge Documenting (check all that apply): Patient Departure - Discharge - Discharge Plan Condition: Stable Disposition: HOME Prescriptions: Bisacodyl SUPP* [Dulcolax Supp*] 10 mg PA DAILY PRN #5 supp PRN Reason: Constipation Polyethylene Glycol 3350 BTL* [Miralax] 17 gm PO TID PRN #1 btl PRN Reason: Constipation Patient Education Materials: Constipation (ED) Referrals: Beatriz Tavarez MD [Primary Care Provider] - Additional Instructions: High-fiber diet. Drink plenty of fluids. Natural fruit juices such as apple or prune may help. Return if worse, new symptoms or other concerns. Call your doctor in the morning to schedule follow-up. - Billing Disposition and Condition Condition: STABLE Disposition: Home - Attestation Statements Document Initiated by Scribe: Yes Documenting Scribe: Ave Camp Provider For Whom Kevinibe is Documenting (Include Credential): Sixto Jaquez MD Scribe Attestation: Ave Zhang scribed for Sixto Jaquez MD on 05/17/18 at 0113. Scribe Documentation Reviewed: Yes Provider Attestation: The documentation as recorded by the Ave london accurately reflects the service I personally performed and the decisions made by Sixto palafox MD Status of Scribe Document: Viewed
[2018-05-16 21:47] VITALS: BP 154/98
== END 2018-05-16 21:47 | disposition home or self-care (01) ==
LOC: ED 19:34
DX: K59.09 Other constipation (principal); Z87.891 Personal history of nicotine dependence
CPT/HCPCS: 99282

== ENCOUNTER → 2018-06-01 17:40 | Emergency (ER) | payer OTHER ==
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
[2018-06-01 21:32] VITALS: BP 140/79
== END | disposition home or self-care (01) ==
LOC: ED 17:40
DX: F19.951 Other psychoactive substance use, unspecified with psychoactive substance-induced psychotic disorder with hallucinations (principal); S00.12XA Contusion of left eyelid and periocular area, initial encounter; S00.11XA Contusion of right eyelid and periocular area, initial encounter; Y04.0XXA Assault by unarmed brawl or fight, initial encounter; Y92.9 Unspecified place or not applicable; Z87.891 Personal history of nicotine dependence
CPT/HCPCS: 93005; 99282

== ENCOUNTER 2018-06-23 16:37 | Emergency (ER) | payer OTHER ==
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
[2018-06-23] MEDS ORDERED: Nicotine Inhaler* 10 MG AMP INH PRN (17:11)
[2018-06-23] MEDS ORDERED: Mouth Piece, Nicotine* 1 EACH CARTRIDGE INH PRN (17:41)
--- NOTE | 2018-06-23 18:07 | ED ---
Progress - Progress Note Progress Note: Receiving sign out from Dr. Bryson, pending medical clearance for a MHE and a MHE. Course/Dx - Course Course Of Treatment: Patient was signed out from Dr. Bryson upon shift change pending MHE and dispo. Per MHE, patient will be held to the morning pending evaluation by Dr. Badillo. Patient will be signed out to Dr. Robledo upon shift change pending evaluation by Dr. Badillo. Patient is agreeable with this plan. - Diagnoses Provider Diagnoses: Psychosis Discharge - Sign-Out/Discharge Documenting (check all that apply): Sign-Out Patient, Receiving Sign-Out Signing out patient TO: Toro Robledo - Upon shift change pending evaluation by Dr. Badillo Receiving patient FROM: Pj Bryson Patient Received Moderate/Deep Sedation with Procedure: No - Discharge Plan Condition: Stable Referrals: Beatriz Tavarez MD [Primary Care Provider] - - Attestation Statements Document Initiated by Scribe: Yes Documenting Scribe: Ave Camp Provider For Whom Scribe is Documenting (Include Credential): Chelo Brown MD Scribe Attestation: Ave Zhang, scribed for Chelo Brown MD on 06/24/18 at 0634. Status of Scribe Document: Ready
[2018-06-23 18:16] LABS: ABS Basophils 0 10^3/ul (0-0.2); ABS Eosinophils 0.1 10^3/ul (0-0.6); ABS Lymphocytes 0.9 10^3/ul (1.0-4.8); ABS Monocytes 0.6 10^3/ul (0-0.8); ABS Neutrophils 5.2 10^3/ul (1.5-7.7); ABS Nucleated RBC 0 10^3/ul; Eosinophil % 1.1 %; Hematocrit 40 % (42-52); Hemoglobin 13.6 g/dl (14.0-18.0); Lymphocyte % 13.7 %; Mean Corpuscular HGB Conc 34 g/dl (31-36); Mean Corpuscular Hemoglobin 32 pg (27-31); Mean Corpuscular Volume 94 fL (80-94); Mean Platelet Volume 7.2 fL (7.4-10.4); Nucleated Red Blood Cells % 0.1; Platelet Count 210 10^3/ul (150-450); Red Blood Count 4.22 10^6/ul (4.00-5.40); Red Cell Distribution Width 14 % (10.5-15); White Blood Count 6.9 10^3/ul (3.5-10.8)
[2018-06-23 18:33] LABS: ALT 24 U/L (7-52); AST 18 U/L (13-39); Albumin 3.9 g/dL (3.2-5.2); Albumin/Globulin Ratio 0.7 (1-3); Alkaline Phosphatase 70 U/L (34-104); Anion Gap 5 mmol/L (2-11); BUN/Creatinine Ratio 16.4 (8-20); Blood Urea Nitrogen 19 mg/dL (6-24); CO2 Carbon Dioxide 29 mmol/L (22-32); Calcium 9.5 mg/dL (8.6-10.3); Chloride 94 mmol/L (101-111); EGFR African American 78.8 (>60); EGFR Non-African American 65.1 (>60); Globulin 5.3 g/dL (2-4); Glucose 92 mg/dL (70-100); Sodium 128 mmol/L (135-145); Total Protein 9.2 g/dL (6.4-8.9)
[2018-06-23 18:51] LABS: Acetaminophen < 15 mcg/mL; Alcohol < 10 mg/dL (<10); Salicylate < 2.50 mg/dL (<30)
[2018-06-23 19:05] LABS: TSH (Thyroid Stimulating Horm) 1.01 mcIU/mL (0.34-5.60)
[2018-06-23] MEDS ORDERED: traZODone TAB* 50 MG TAB PO ONE (21:28)
--- NOTE | 2018-06-24 07:20 | ED ---
Progress - Progress Note Progress Note: This patient was signed out from Dr. Brown to Dr. Robledo, pending dispo after MHE. This patient has sobered up in the ED and wants to go home. Dr. Badillo evaluated the patient is will be discharging him with dx of substance abuse disorder. Patient understands and agrees with this plan. - Consult/PCP Time Called: 16:39 Course/Dx - Course Course Of Treatment: Patient was assessed by Dr. Krause he recommends for the patient to be discharged home and follow up as an outpatient. - Diagnoses Provider Diagnoses: Substance abuse Discharge - Sign-Out/Discharge Documenting (check all that apply): Patient Departure - discharge Patient Received Moderate/Deep Sedation with Procedure: No - Discharge Plan Condition: Stable Disposition: HOME Referrals: Beatriz Tavarez MD [Primary Care Provider] - Additional Instructions: RETURN TO THE ED FOR ANY WORSENING OR NEW SYMPTOMS. - Billing Disposition and Condition Condition: STABLE Disposition: Home - Attestation Statements Document Initiated by Scribe: Yes Documenting Scribe: Salomon Mann Provider For Whom Tj is Documenting (Include Credential): Toro Robledo MD Scribe Attestation: Salomon Zhang, scribed for Toro Robledo MD on 06/24/18 at 1839. Scribe Documentation Reviewed: Yes Provider Attestation: The documentation as recorded by the Salomon london accurately reflects the service I personally performed and the decisions made by , Toro Robledo MD Status of Scribe Document: Viewed
--- NOTE | 2018-06-24 08:07 | PN ---
ED Flex Patient Progress Note Date of Service: 06/23/18 Subjective: This is a 57 year-old M who is pending admission to [facility] / transfer to another psychiatric facility / discharge to home / or being observed secondary to drug abuse and delusions. Pt. examined in room 23 at 0755. He is resting comfortably. Offers no complaints. States he slept well. Pt. states he was re-evaluated this morning and plan is to go home after breakfast. Objective: Vitals: Most recent vital signs documented below. General NAD, Alert and oriented x3. Laboratory: Current laboratory results documented below. Assessment: Drug abuse, delusions. Plan: Pending disposition. Vital Signs Temp Pulse Resp BP Pulse Ox 99.8 F 102 16 145/93 96 06/23/18 21:05 06/23/18 21:05 06/23/18 21:05 06/23/18 21:05 06/23/18 21:05 Lab Results - Entire Visit 06/23/18 06/23/18 18:04 18:04 WBC 6.9 RBC 4.22 Hgb 13.6 L Hct 40 L MCV 94 MCH 32 H MCHC 34 RDW 14 Plt Count 210 MPV 7.2 L Neut % (Auto) 75.4 Lymph % (Auto) 13.7 [place] % (Auto) 9.2 Eos % (Auto) 1.1 Baso % (Auto) 0.6 Absolute Neuts (auto) 5.2 Absolute Lymphs (auto) 0.9 L Absolute Monos (auto) 0.6 Absolute Eos (auto) 0.1 Absolute Basos (auto) 0 Absolute Nucleated RBC 0 Nucleated RBC % 0.1 Sodium 128 L Potassium 5.0 Chloride 94 L Carbon Dioxide 29 Anion Gap 5 BUN 19 Creatinine 1.16 Est GFR ( Amer) 78.8 Est GFR (Non-Af Amer) 65.1 BUN/Creatinine Ratio 16.4 Glucose 92 Calcium 9.5 Total Bilirubin 0.30 AST 18 ALT 24 Alkaline Phosphatase 70 Total Protein 9.2 H Albumin 3.9 Globulin 5.3 H Albumin/Globulin Ratio 0.7 L TSH 1.01 Salicylates < 2.50 Acetaminophen < 15 Serum Alcohol < 10
[2018-06-24 08:24] VITALS: BP 113/77
== END 2018-06-24 08:16 | disposition home or self-care (01) ==
LOC: ED 16:37
DX: F19.10 Other psychoactive substance abuse, uncomplicated (principal); F29 Unspecified psychosis not due to a substance or known physiological condition; R44.3 Hallucinations, unspecified; F90.9 Attention-deficit hyperactivity disorder, unspecified type; R45.851 Suicidal ideations; F10.129 Alcohol abuse with intoxication, unspecified; Z87.891 Personal history of nicotine dependence
CPT/HCPCS: 36415; 80053; 80320; 80329; 84443; 85025; 99284; A9270-GY; G0480

== ENCOUNTER 2018-06-24 18:55 | Emergency (ER) | payer OTHER ==
--- NOTE | 2018-06-24 19:49 | ED ---
Psychiatric Complaint - HPI Summary HPI Summary: This patient is a 57 year old M brought in by ambulance from [facility] with a chief complaint of psychiatric complaint since just [employer] COORDINATOR. Patient reports paranoia and constipation. Patient denies SI or HI. The patient states that he was discharged from the ED this morning. He says he went home, ate, went for a walk, drank two bottles of water, and walked to [facility]. At [facility], he says he feels like he is going to . The patient states, I would like to know what was in the water that I drank, I feel like I am trapped. The patient was cooperative in the ED. The patient had a pocket knife on him, which was given to security. He was at [facility] for constipation medication. 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 The patient is prescribed trazadone for sleep. He has not been admitted to a hospital for mental health concerns before. He says that the water from [place] tasted very salty. No PMHx bipolar, depression, schizophrenia, per patient. RX Trazadone. - History Of Current Complaint Chief Complaint: EDMentalHealth Time Seen by Provider: 06/24/18 19:17 Hx Obtained From: Patient Onset/Duration: Sudden Onset, Lasting Hours Character: Depressed Associated Signs And Symptoms: Positive: Paranoid Behavior Related History: Positive For: Prior Psychiatric Issues Has Suicidal: Denies: Thoughts Has Homicidal: Denies: Thoughts - Allergies/Home Medications Allergies/Adverse Reactions: Allergies Allergy/AdvReac Type Severity Reaction Status Date / Time No Known Allergies Allergy Verified 06/24/18 19:14 PMH/Surg Hx/FS Hx/Imm Hx Endocrine/Hematology History: Denies: Hx Anticoagulant Therapy Cardiovascular History: Reports: Other Cardiovascular Problems/Disorders - unspecific cardiac issues per H+P Respiratory History: Denies: Hx Asthma, Hx Chronic Bronchitis History: Denies: Hx Dialysis Musculoskeletal History: Reports: Hx Back Problems - spondylosis, Other Musculoskeletal History - hx of spinal stenosis Sensory History: Denies: Hx Contacts or Glasses Opthamlomology History: Denies: Hx Contacts or Glasses Neurological History: Reports: Hx Seizures - With ETOH detox Psychiatric History: Reports: Hx Anxiety, Hx Attention Deficit Hyperactivity Disorder, Hx Depression, Hx Inpatient Treatment, Hx Community Mental Health Tx, Hx Suicide Attempt - 1999, Hx of Violent Episodes Against Others, Hx Substance Abuse - alcohol Denies: Hx Eating Disorder, Hx Panic Disorder, Hx Post Traumatic Stress Disorder, Hx Schizophrenia, Hx Bipolar Disorder, Other Psychiatric Issues/ Disorders - Surgical History Surgery Procedure, Year, and Place: No surgical history - Immunization History Date of Tetanus Vaccine: unknown Date of Influenza Vaccine: NO Infectious Disease History: No Infectious Disease History: Reports: Hx Hepatitis Denies: Traveled Outside the [place] in Last 30 Days - Family History Known Family History: Positive: Other - Alcohol abuse Negative: Hypertension Family History: No FHx schizophrenia - Social History Alcohol Use: None 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 GENERAL: Patient is a well-developed and nourished male who is lying comfortable in the stretcher. Patient is not in any acute respiratory distress. He appears somewhat anxious but denies SI/HI. HEAD AND FACE: No signs of trauma. No ecchymosis, hematomas or skull depressions. No sinus tenderness. EYES: PERRLA, EOMI x 2, No injected conjunctiva, no nystagmus. EARS: Hearing grossly intact. Ear canals and tympanic membranes are within normal limits. MOUTH: Oropharynx within normal limits. NECK: Supple, trachea is midline, no adenopathy, no JVD, no carotid bruit, no c- spine tenderness, neck with full ROM. CHEST: Symmetric, no tenderness at palpation LUNGS: Clear to auscultation bilaterally. No wheezing or crackles. CVS: Regular rate and rhythm, S1 and S2 present, no murmurs or gallops appreciated. ABDOMEN: Soft, non-tender. No signs of distention. No rebound no guarding, and no masses palpated. Bowel sounds are normal. EXTREMITIES: FROM in all major joints, no edema, no cyanosis or clubbing. NEURO: Alert and oriented x 3. No acute neurological deficits. Speech is normal and follows commands. SKIN: Dry and warm Triage Information Reviewed: Yes Vital Signs On Initial Exam: Initial Vitals Temp Pulse Resp BP Pulse Ox 97.7 F 106 16 163/110 94 06/24/18 19:02 06/24/18 19:02 06/24/18 19:02 06/24/18 19:02 06/24/18 19:02 Vital Signs Reviewed: Yes Diagnostics - Vital Signs Vital Signs Temp Pulse Resp BP Pulse Ox 06/24/18 19:02 97.7 F 106 16 163/110 94 - Laboratory Result Diagrams: 06/24/18 19:52 06/24/18 19:52 Lab Statement: Any lab studies that have been ordered have been reviewed, and results considered in the medical decision making process. Course/Dx - Course Course Of Treatment: This patient is a 57 year old M brought in by ambulance from [facility] with a chief complaint of psychiatric complaint since just [employer] COORDINATOR. Patient reports paranoia and constipation. Patient denies SI or HI. Test results with no significant abnormalities except for positive Opiates screening. We discussed patient care with Dr. Toro and they recommended discharge. The patient is agreeable with this plan. - Differential Dx/Clinical Impression Provider Diagnosis: Opiate abuse, episodic, Substance abuse Discharge - Sign-Out/Discharge Documenting (check all that apply): Patient Departure - discharge Patient Received Moderate/Deep Sedation with Procedure: No - Discharge Plan Condition: Stable Disposition: HOME Referrals: Beatriz Tavarez MD [Primary Care Provider] - - Attestation Statements Document Initiated by Scribe: Yes Documenting Scribe: Leon Mae Provider For Whom Scribe is Documenting (Include Credential): Chelo Brown MD Scribe Attestation: Leon Zhang, scribed for Chelo Brown MD on 06/24/18 at 2149. Status of Scribe Document: Ready
[2018-06-24 19:53] LABS: Urine Appearance Clear; Urine Bilirubin Negative (Negative); Urine Blood Negative (Negative); Urine Color Yellow; Urine Glucose Negative (Negative); Urine Ketones Negative (Negative); Urine Nitrite Negative (Negative); Urine Protein Negative (Negative); Urine Specific Gravity 1.014 (1.010-1.030); Urine Urobilinogen Negative (Negative)
[2018-06-24 19:56] LABS: ABS Basophils 0 10^3/ul (0-0.2); ABS Eosinophils 0.1 10^3/ul (0-0.6); ABS Lymphocytes 0.9 10^3/ul (1.0-4.8); ABS Monocytes 0.6 10^3/ul (0-0.8); ABS Neutrophils 5.8 10^3/ul (1.5-7.7); ABS Nucleated RBC 0 10^3/ul; Eosinophil % 0.9 %; Hematocrit 38 % (42-52); Hemoglobin 13.2 g/dl (14.0-18.0); Lymphocyte % 12.3 %; Mean Corpuscular HGB Conc 35 g/dl (31-36); Mean Corpuscular Hemoglobin 33 pg (27-31); Mean Corpuscular Volume 94 fL (80-94); Mean Platelet Volume 6.7 fL (7.4-10.4); Nucleated Red Blood Cells % 0; Platelet Count 205 10^3/ul (150-450); Red Blood Count 4.01 10^6/ul (4.00-5.40); Red Cell Distribution Width 13 % (10.5-15); White Blood Count 7.4 10^3/ul (3.5-10.8)
[2018-06-24 20:04] LABS: Barbiturates Urine Screen None Detected (None Detect); Benzodiazepine Urine Screen None Detected (None Detect); Urine Cannabinoids Screen None Detected (None Detect)
[2018-06-24 20:17] LABS: ALT 21 U/L (7-52); AST 19 U/L (13-39); Acetaminophen < 15 mcg/mL; Albumin 3.7 g/dL (3.2-5.2); Albumin/Globulin Ratio 0.7 (1-3); Alcohol < 10 mg/dL (<10); Alkaline Phosphatase 74 U/L (34-104); Anion Gap 6 mmol/L (2-11); BUN/Creatinine Ratio 14.6 (8-20); Blood Urea Nitrogen 18 mg/dL (6-24); CO2 Carbon Dioxide 28 mmol/L (22-32); Calcium 9.1 mg/dL (8.6-10.3); Chloride 94 mmol/L (101-111); EGFR African American 73.7 (>60); EGFR Non-African American 60.9 (>60); Glucose 122 mg/dL (70-100); Potassium 4.4 mmol/L (3.5-5.0); Salicylate < 2.50 mg/dL (<30); Sodium 128 mmol/L (135-145); Total Protein 8.7 g/dL (6.4-8.9)
[2018-06-24 20:32] LABS: TSH (Thyroid Stimulating Horm) 1.84 mcIU/mL (0.34-5.60)
[2018-06-24 22:11] VITALS: BP 0/0
== END 2018-06-24 22:07 | disposition home or self-care (01) ==
LOC: ED 18:55
DX: F11.10 Opioid abuse, uncomplicated (principal); F22 Delusional disorders; K59.00 Constipation, unspecified; Z87.891 Personal history of nicotine dependence
CPT/HCPCS: 36415; 80053; 80307; 80320; 80329; 81003; 84443; 85025; 99285; G0480

== ENCOUNTER 2018-07-07 14:37 | Emergency (ER) | payer OTHER ==
[2018-07-07] MEDS ORDERED: Nicotine Inhaler* 10 MG AMP INH PRN (14:53)
--- OUTSIDE RECORDS SUMMARY | 2018-07-07 14:59 | XMS REPORT | Continuity of Care Document ---
:1960 External Reference #:[id number] Author Name ALMA ROSA Brennan Address [address] [facility] [place] [address] Care Team Providers Name Role Phone Beatriz Tavarez M.D. 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 Primary Care Physician Unavailable Payers Date Identification Numbers Payment Provider Subscriber Policy Number: [id number] [facility] [address] PayID: [id number] [address] [address] [place] [address] Advance Directives Description No Information Available Problems Date Description Provider Status Onset: 10/15/2014 Attention deficit hyperactivity disorder Beatriz Tavarez M.D. Active Onset: 10/15/2014 Anxiety state Beatriz Tavarez M.D. Active Onset: 11/26/2014 Chronic type B viral hepatitis Beatriz Tavarez M.D. Active Onset: 12/03/2014 Spinal stenosis in cervical region Beatriz Tavarez M.D. Active Onset: 12/06/2016 Cannabis abuse Beatriz Tavarez M.D. 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 Active Onset: 01/26/2018 Essential hypertension Beatriz Tavarez M.D. 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 Active mental disorder Onset: 10/15/2014 Psychoactive substance-induced organic Beatriz Tavarez M.D. Resolved mental disorder Resolved: 12/03/2014 Onset: 10/15/2014 Drug-induced delusional disorder Beatriz Tavarez M.D. Resolved Resolved: 12/03/2014 Onset: 10/15/2014 Narcotic drug user Beatriz Tavarez M.D. Resolved Resolved: 12/06/2016 Onset: 01/06/2017 Elevated blood-pressure reading without Beatriz Tavarez M.D. 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 Tobacco Use Start: Unknown End: Former Cigarette Smoker Unknown ETOH Use Denies alcohol use ETOH Use Recovered alcoholic October 2010 Tobacco Use Start: Unknown End: Patient is a former Unknown smoker Recreational Drug Use Marijuana Recreational Drug Use Former Drug User stimulants, cough medication Smoking Status Reviewed: 02/17/18 Patient is a former smoker Seat Belt/Car Seat Always uses seat belt Allergies, Adverse Reactions, Alerts Description No Known Drug Allergies Medications Medication Date Status Form Strength Qnty SIG Indications Ordering Provider Trazodone 06/09/ Active Tablets 150mg 30tab 1 tab by F41.9 Beatriz HCL 2018 s mouth every , night M.D. 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 2019 Xanax 04/17/ Hx Tablets 0.25mg 10tab take 1 up to F90.0 Beatriz 2017 - s twice a day [place], as needed for M.D. 2019 anxiety MDD 2 F10.21 F41.9 Xanax 02/27/2018 - Hx Tablets 0.25mg 6tabs take 1 up to Debi Cyndi 03/02/2018 twice a day LURDES Marti as needed for anxiety MDD 2 Clonidine HCL 01/26/2018 - Hx Tablets 0.2mg 30tabs 1 tab by I10 Beatriz Tavarez, 02/17/2018 mouth every M.D. day Vyvanse 05/12/2017 - Hx Capsules 30mg 60caps 2 by mouth F90. Beatriz Tavarez, 06/09/2017 every day 0 M.D. Meloxicam 01/27/2017 - Hx Tablets 15mg 30tabs take one M48. Beatriz Tavarez, 05/12/2017 tablet by 02 M.D. mouth daily prn with food Vyvanse 01/06/2017 - Hx Capsules 40mg 30caps 1 by mouth F90. Beatriz Tavarez, 05/12/2017 every day 0 M.D. [place] 01/06/2017 - Hx Cream 10%-11% 50gm apply to M48. Beatriz Tavarez, Neck & 08/17/2017 affected 02 M.D. Shoulder Rub area twice a day Trazodone HCL 12/06/2016 - Hx Tablets 100mg 30tabs take 1 Radha 06/09/2017 tablet by ALMA ROSA Steele mouth nightly at bedtime as needed Concerta 12/06/2016 - Hx Tablets ER 27mg 30tabs 1 by mouth Beatriz Tavarez, 01/06/2017 every day M.D. Concerta 11/25/2016 - Hx Tablets ER 27mg 30tabs 1 by mouth Beatriz Tavarez, 12/05/2016 every day M.D. Concerta 11/16/2016 - Hx Tablets ER 18mg 30tabs 1 tab by Beatriz Tavarez, 11/25/2016 mouth every M.D. day as needed Vyvanse 10/30/2016 - Hx Capsules 40mg 30caps 1 by mouth F90. Beatriz Tavarez, 11/16/2016 every day 0 M.D. Docusate 03/11/2015 - Hx Capsules 100mg 60caps 1-2 by mouth K59. Beatriz Tavarez, Sodium 04/14/2016 twice a day 09 M.D. as needed hard stools Abilify 12/03/2014 - Hx Tablets 5mg 30tabs 1 by mouth 300. Beatriz Tavarez , 01/28/2015 every day 00 M.D. Trazodone HCL - Hx Tablets 150mg 30tabs take one Angelica 12/06/2016 tablet by Jayleneorf, mouth at Afnp-C bedtime Abilify - Hx Tablets 5mg 1 by mouth Unknown 12/03/2014 every day, as needed Strattera - Hx Capsules 25mg 2 by mouth Unknown 04/14/2016 twice a day Immunizations Description No Information Available Vital Signs Date Vital Result Comment 06/27/2018 7:44pm BP Systolic 122 mmHg BP Diastolic 90 mmHg Heart Rate 84 /min Body Temperature 97.5 F Respiratory Rate 18 /min Weight 150.00 lb 05/18/2018 3:09pm BP Systolic 136 mmHg BP Diastolic 90 mmHg Heart Rate 92 /min Body Temperature 97.6 F Respiratory Rate 17 /min Weight 146.00 lb 04/17/2018 1:04pm BP Systolic 120 mmHg BP Diastolic 72 mmHg Heart Rate 80 /min Body Temperature 98.6 F Respiratory Rate 20 /min Weight 148.00 lb 02/17/2018 8:46am BP Systolic 122 mmHg BP Diastolic 74 mmHg Heart Rate 60 /min Body Temperature 98.1 F Respiratory Rate 12 /min Height 67 inches 5'7" Weight 147.00 lb BMI (Body Mass Index) 23.0 kg/m2 01/26/2018 8:58am BP Systolic 128 mmHg BP Diastolic 92 mmHg Heart Rate 64 /min Body Temperature 98.2 F Height 67 inches 5'7" Weight 144.00 lb BMI (Body Mass Index) 22.6 kg/m2 08/29/2017 6:51pm BP Systolic 134 mmHg BP Diastolic 60 mmHg Heart Rate 84 /min Body Temperature 99.7 F Respiratory Rate 16 /min Height 67 inches 5'7" Weight 142.25 lb BMI (Body Mass Index) 22.3 kg/m2 06/09/2017 11:12am BP Systolic 112 mmHg BP Diastolic 68 mmHg Heart Rate 84 /min Body Temperature 97.9 F Respiratory Rate 16 /min Height 67 inches 5'7" Weight 138.12 lb BMI (Body Mass Index) 21.6 kg/m2 05/12/2017 11:32am BP Systolic 112 mmHg BP Diastolic 70 mmHg Heart Rate 68 /min Body Temperature 98.2 F Weight 142.00 lb 01/27/2017 11:29am BP Systolic 104 mmHg BP Diastolic 72 mmHg Heart Rate 68 /min Body Temperature 97.9 F Respiratory Rate 16 /min Weight 141.00 lb 01/06/2017 10:59am BP Systolic 122 mmHg BP Diastolic 92 mmHg BP Systolic Recheck 124 mmHg BP Diastolic Recheck 90 mmHg Heart Rate 92 /min Body Temperature 96.7 F Height 67 inches 5'7" Weight 137.25 lb BMI (Body Mass Index) 21.5 kg/m2 12/06/2016 3:03pm BP Systolic 100 mmHg BP Diastolic 60 mmHg Heart Rate 64 /min Body Temperature 98.2 F Respiratory Rate 16 /min Height 67 inches 5'7" Weight 140.12 lb BMI (Body Mass Index) 21.9 kg/m2 10/30/2016 9:21am BP Systolic 110 mmHg BP Diastolic 72 mmHg Heart Rate 80 /min Body Temperature 98.2 F Respiratory Rate 16 /min Height 67 inches 5'7" Weight 141.00 lb BMI (Body Mass Index) 22.1 kg/m2 04/14/2016 2:46pm BP Systolic 120 mmHg BP Diastolic 70 mmHg Heart Rate 76 /min Body Temperature 99.1 F Respiratory Rate 16 /min Height 67 inches 5'7" Weight 148.00 lb BMI (Body Mass Index) 23.2 kg/m2 03/11/2015 2:50pm BP Systolic 100 mmHg BP Diastolic 70 mmHg Heart Rate 80 /min Body Temperature 95.5 F Respiratory Rate 16 /min Height 67 inches 5'7" Weight 152.00 lb BMI (Body Mass Index) 23.8 kg/m2 01/28/2015 10:58am BP Systolic 124 mmHg BP Diastolic 76 mmHg Heart Rate 78 /min Body Temperature 97.5 F Respiratory Rate 16 /min Height 67 inches 5'7" Weight 149.25 lb BMI (Body Mass Index) 23.4 kg/m2 12/03/2014 10:22am BP Systolic 110 mmHg BP Diastolic 80 mmHg Heart Rate 72 /min Body Temperature 97.3 F Respiratory Rate 12 /min Height 67 inches 5'7" Weight 152.00 lb BMI (Body Mass Index) 23.8 kg/m2 08/28/2014 1:01pm BP Systolic 116 mmHg BP Diastolic 64 mmHg Heart Rate 84 /min Body Temperature 97.8 F Respiratory Rate 16 /min Height 67 inches 5'7" Weight 151.50 lb BMI (Body Mass Index) 23.7 kg/m2 Results Test Date Facility Test Result H/L Range Note Laboratory test finding 06/24/2018 [facility] Acetaminophen < 15 g/mL 1 Alcohol < 10 mg/dL N <10 Salicylate < 2.50 mg/dL <30 TSH (Thyroid Stim Horm) 1.84 mcIU/mL N 0.34-5.60 Comp Metabolic Panel 06/24/2018 [facility] Sodium 128 mmol/L Low 135-145 Potassium 4.4 mmol/L N 3.5-5.0 Chloride 94 mmol/L Low 101-111 Co2 Carbon Dioxide 28 mmol/L N 22-32 Anion Gap 6 mmol/L N 2-11 Glucose 122 mg/dL High 70-100 Blood Urea Nitrogen 18 mg/dL N 6-24 Creatinine 1.23 mg/dL High 0.67-1.17 BUN/Creatinine Ratio 14.6 N 8-20 Calcium 9.1 mg/dL N 8.6-10.3 Total Protein 8.7 g/dL N 6.4-8.9 Albumin 3.7 g/dL N 3.2-5.2 Globulin 5.0 g/dL High 2-4 Albumin/Globulin Ratio 0.7 Low 1-3 Total Bilirubin 0.30 mg/dL N 0.2-1.0 Alkaline Phosphatase 74 U/L N 34-104 Alt 21 U/L N 7-52 Ast 19 U/L N 13-39 Egfr Non- 60.9 >60 Egfr 73.7 >60 2 Urine Drug SCR ED 06/24/2018 [facility] Amphetamine Ur Screen None Detected None Detect & Pain Clinic Barbiturates Urine Screen None Detected None Detect Benzodiazepine Urine Screen None Detected None Detect Urine Cannabinoids Screen None Detected None Detect Urine Cocaine Screen None Detected None Detect Urine Opiates Screen Presumptive Posi <SEE NOTE> Abnormal None Detect 3 Urine Phencyclidine Screen None Detected None Detect 4 CBC Auto Diff 06/24/2018 [facility] White Blood Count 7.4 10^3/uL N 3.5-10.8 Red Blood Count 4.01 10^6/uL N 4.00-5.40 Hemoglobin 13.2 g/dL Low 14.0-18.0 Hematocrit 38 % Low 42-52 Mean Corpuscular Volume 94 fL N 80-94 Mean Corpuscular Hemoglobin 33 pg High 27-31 Mean Corpuscular HGB Conc 35 g/dL N 31-36 Red Cell Distribution Width 13 % N 10.5-15 Platelet Count 205 10^3/uL N 150-450 Mean Platelet Volume 6.7 fL Low 7.4-10.4 Abs Neutrophils 5.8 10^3/uL N 1.5-7.7 Abs Lymphocytes 0.9 10^3/uL Low 1.0-4.8 Abs Monocytes 0.6 10^3/uL N 0-0.8 Abs Eosinophils 0.1 10^3/uL N 0-0.6 Abs Basophils 0 10^3/uL N 0-0.2 Abs Nucleated RBC 0 10^3/uL Granulocyte % 77.9 % Lymphocyte % 12.3 % Monocyte % 8.3 % Eosinophil % 0.9 % Basophil % 0.6 % Nucleated Red Blood Cells % 0 Urinalysis Profile 06/24/2018 [facility] Urine Color Yellow Urine Appearance Clear Urine Specific [place] 1.014 N 1.010-1.030 Urine pH 5.0 N 5-9 Urine Urobilinogen Negative Negative Urine Ketones Negative Negative Urine Protein Negative Negative Urine Leukocytes Negative Negative Urine Blood Negative Negative Urine Nitrite Negative Negative Urine Bilirubin Negative Negative Urine Glucose Negative Negative Laboratory test finding 06/23/2018 [facility] Acetaminophen < 15 g/mL 5 Alcohol < 10 mg/dL N <10 Salicylate < 2.50 mg/dL <30 TSH (Thyroid Stim Horm) 1.01 mcIU/mL N 0.34-5.60 CBC Auto Diff 06/23/2018 [facility] White Blood Count 6.9 10^3/uL N 3.5-10.8 Red Blood Count 4.22 10^6/uL N 4.00-5.40 Hemoglobin 13.6 g/dL Low 14.0-18.0 Hematocrit 40 % Low 42-52 Mean Corpuscular Volume 94 fL N 80-94 Mean Corpuscular Hemoglobin 32 pg High 27-31 Mean Corpuscular HGB Conc 34 g/dL N 31-36 Red Cell Distribution Width 14 % N 10.5-15 Platelet Count 210 10^3/uL N 150-450 Mean Platelet Volume 7.2 fL Low 7.4-10.4 Abs Neutrophils 5.2 10^3/uL N 1.5-7.7 Abs Lymphocytes 0.9 10^3/uL Low 1.0-4.8 Abs Monocytes 0.6 10^3/uL N 0-0.8 Abs Eosinophils 0.1 10^3/uL N 0-0.6 Abs Basophils 0 10^3/uL N 0-0.2 Abs Nucleated RBC 0 10^3/uL Granulocyte % 75.4 % Lymphocyte % 13.7 % Monocyte % 9.2 % Eosinophil % 1.1 % Basophil % 0.6 % Nucleated Red Blood Cells % 0.1 Comp Metabolic Panel 06/23/2018 [facility] Sodium 128 mmol/L Low 135-145 Potassium 5.0 mmol/L N 3.5-5.0 Chloride 94 mmol/L Low 101-111 Co2 Carbon Dioxide 29 mmol/L N 22-32 Anion Gap 5 mmol/L N 2-11 Glucose 92 mg/dL N 70-100 Blood Urea Nitrogen 19 mg/dL N 6-24 Creatinine 1.16 mg/dL N 0.67-1.17 BUN/Creatinine Ratio 16.4 N 8-20 Calcium 9.5 mg/dL N 8.6-10.3 Total Protein 9.2 g/dL High 6.4-8.9 Albumin 3.9 g/dL N 3.2-5.2 Globulin 5.3 g/dL High 2-4 Albumin/Globulin Ratio 0.7 Low 1-3 Total Bilirubin 0.30 mg/dL N 0.2-1.0 Alkaline Phosphatase 70 U/L N 34-104 Alt 24 U/L N 7-52 Ast 18 U/L N 13-39 Egfr Non- 65.1 >60 Egfr 78.8 >60 6 Laboratory test finding 05/12/2018 [facility] Acetaminophen < 15 g/mL 7 Alcohol < 10 mg/dL N <10 Salicylate < 2.50 mg/dL <30 TSH (Thyroid Stim Horm) 1.94 mcIU/mL N 0.34-5.60 CBC Auto Diff 05/12/2018 [facility] White Blood Count 8.0 10^3/uL N 3.5-10.8 Red Blood Count 4.53 10^6/uL N 4.00-5.40 Hemoglobin 14.7 g/dL N 14.0-18.0 Hematocrit 42 % N 42-52 Mean Corpuscular Volume 93 fL N 80-94 Mean Corpuscular Hemoglobin 32 pg High 27-31 Mean Corpuscular HGB Conc 35 g/dL N 31-36 Red Cell Distribution Width 13 % N 10.5-15 Platelet Count 218 10^3/uL N 150-450 Mean Platelet Volume 7.5 fL N 7.4-10.4 Abs Neutrophils 6.2 10^3/uL N 1.5-7.7 Abs Lymphocytes 1.2 10^3/uL N 1.0-4.8 Abs Monocytes 0.5 10^3/uL N 0-0.8 Abs Eosinophils 0.1 10^3/uL N 0-0.6 Abs Basophils 0 10^3/uL N 0-0.2 Abs Nucleated RBC 0 10^3/uL Granulocyte % 76.6 % Lymphocyte % 15.4 % Monocyte % 6.8 % Eosinophil % 0.8 % Basophil % 0.4 % Nucleated Red Blood Cells % 0 Comp Metabolic Panel 05/12/2018 [facility] Sodium 128 mmol/L Low 135-145 Potassium 4.3 mmol/L N 3.5-5.0 Chloride 94 mmol/L Low 101-111 Co2 Carbon Dioxide 27 mmol/L N 22-32 Anion Gap 7 mmol/L N 2-11 Glucose 100 mg/dL N 70-100 Blood Urea Nitrogen 15 mg/dL N 6-24 Creatinine 1.18 mg/dL High 0.67-1.17 BUN/Creatinine Ratio 12.7 N 8-20 Calcium 9.7 mg/dL N 8.6-10.3 Total Protein 10.1 g/dL High 6.4-8.9 Albumin 4.1 g/dL N 3.2-5.2 Globulin 6.0 g/dL High 2-4 Albumin/Globulin Ratio 0.7 Low 1-3 Total Bilirubin 0.60 mg/dL N 0.2-1.0 Alkaline Phosphatase 70 U/L N 34-104 Alt 28 U/L N 7-52 Ast 21 U/L N 13-39 Egfr Non- 63.9 >60 Egfr 77.3 >60 8 Comprehensive Metabolic 05/09/2018 Victoria Leslie ([facility]) Sodium 137 mEq/L 134-149 Prof Potassium 4.4 mEq/L 3.6-5.5 Chloride 101 mEq/L 94-112 Carbon Dioxide 27 mEq/L 21-32 Glucose 92 mg/dL 70-105 BUN 22 mg/dL 6-26 Creatinine 0.8 mg/dL 0.6-1.4 BUN/Creat Ratio 27.5 CALC 8.0-36.0 Calcium 10.1 mg/dL 8.6-10.2 Total Protein 10.2 g/dL High 6.4-8.3 9 Albumin 4.2 g/dL 3.8-5.5 Globulin 6.0 g/dL High 2.0-4.8 A/G Ratio 0.7 CALC 0.6-2.3 Alk. Phosphatase 80 U/L 22-95 Alt (SGPT) 30 U/L 7-35 Ast (Sgot) 22 U/L 5-34 Total Bilirubin 0.5 mg/dL 0.2-1.3 GFR Non- >60 ml/min/1.73m^ >=60 GFR >60 ml/min/1.73m^ >=60 Spep RFX Willa Free 04/28/2018 [facility] Protein, Total 9.7 g/dL High 6.0- 8.5 Altha/Lambda LT [address] [place] [address] (607)- - Albumin 4.0 g/dL 2.9-4.4 Xtsal-1-Fnfawkpn 0.2 g/dL 0.0-0.4 Syrai-7-Zefxzjfw 0.6 g/dL 0.4-1.0 Beta Globulin 0.7 g/dL 0.7-1.3 Gamma Globulin 4.2 g/dL High 0.4-1.8 M-Khari 3.8 g/dL High Not Observed Globulin, Total 5.7 g/dL High 2.2-3.9 A/G Ratio 0.7 0.7-1.7 Please note: See Comment: 10 Willa Reflex . PDF . Immunoglobulin G, Qn, Serum QNS mg/dL 11 Immunoglobulin A, Qn, Serum QNS mg/dL 12 Immunoglobulin M, Qn, Serum QNS mg/dL 13 Immunofixation Result, Serum See Comment: 14 Free Altha Lt Chains,S 49.4 mg/L High 3.3-19.4 Free Lambda Lt Chains,S 5.7 mg/L 5.7-26.3 Altha/Lambda Ratio,S 8.67 High 0.26-1.65 Laboratory test 04/28/2018 [facility] Written See Comment: [address] [place] [address] (127)- - Request Problem QNS 16 PDF [id number] SEE IMAGE Comp Metabolic Panel 04/22/2018 [facility] Sodium 130 mmol/L Low 135-145 Potassium 4.0 mmol/L N 3.5-5.0 Chloride 95 mmol/L Low 101-111 Co2 Carbon Dioxide 28 mmol/L N 22-32 Anion Gap 7 mmol/L N 2-11 Glucose 95 mg/dL N 70-100 Blood Urea Nitrogen 24 mg/dL N 6-24 Creatinine 1.22 mg/dL High 0.67-1.17 BUN/Creatinine Ratio 19.7 N 8-20 Calcium 9.5 mg/dL N 8.6-10.3 Total Protein 9.5 g/dL High 6.4-8.9 Albumin 3.6 g/dL N 3.2-5.2 Globulin 5.9 g/dL High 2-4 Albumin/Globulin Ratio 0.6 Low 1-3 Total Bilirubin 0.30 mg/dL N 0.2-1.0 Alkaline Phosphatase 65 U/L N 34-104 Alt 19 U/L N 7-52 Ast 18 U/L N 13-39 Egfr Non- 61.4 >60 Egfr 74.3 >60 17 Laboratory test finding 04/22/2018 [facility] Acetaminophen < 15 g/mL 18 Alcohol < 10 mg/dL N <10 Salicylate < 2.50 mg/dL <30 TSH (Thyroid Stim Horm) 1.96 mcIU/mL N 0.34-5.60 Urine Drug SCR ED 04/22/2018 [facility] Amphetamine Ur Screen None Detected None Detect & Pain Clinic Barbiturates Urine Screen None Detected None Detect Benzodiazepine Urine Screen None Detected None Detect Urine Cannabinoids Screen Presumptive Posi <SEE NOTE> Abnormal None Detect 19 Urine Cocaine Screen None Detected None Detect Urine Opiates Screen None Detected None Detect Urine Phencyclidine Screen None Detected None Detect 20 CBC Auto Diff 04/22/2018 [facility] White Blood Count 8.3 10^3/uL N 3.5-10.8 Red Blood Count 4.44 10^6/uL N 4.00-5.40 Hemoglobin 14.3 g/dL N 14.0-18.0 Hematocrit 41 % Low 42-52 Mean Corpuscular Volume 92 fL N 80-94 Mean Corpuscular Hemoglobin 32 pg High 27-31 Mean Corpuscular HGB Conc 35 g/dL N 31-36 Red Cell Distribution Width 14 % N 10.5-15 Platelet Count 216 10^3/uL N 150-450 Mean Platelet Volume 7.9 fL N 7.4-10.4 Abs Neutrophils 6.4 10^3/uL N 1.5-7.7 Abs Lymphocytes 1.0 10^3/uL N 1.0-4.8 Abs Monocytes 0.7 10^3/uL N 0-0.8 Abs Eosinophils 0.1 10^3/uL N 0-0.6 Abs Basophils 0 10^3/uL N 0-0.2 Abs Nucleated RBC 0 10^3/uL Granulocyte % 77.6 % Lymphocyte % 12.4 % Monocyte % 8.9 % Eosinophil % 0.8 % Basophil % 0.3 % Nucleated Red Blood Cells % 0.1 Urinalysis Profile 04/22/2018 [facility] Urine Color Straw Urine Appearance Clear Urine Specific [place] 1.005 Low 1.010-1.030 Urine pH 6.0 N 5-9 Urine Urobilinogen Negative Negative Urine Ketones Negative Negative Urine Protein Negative Negative Urine Leukocytes Negative Negative Urine Blood Negative Negative Urine Nitrite Negative Negative Urine Bilirubin Negative Negative Urine Glucose Negative Negative Toxassure Select 13 04/19/2018 [facility] Summary Report FINAL 21 (MW) [address] [facility] (Summary) [place] [address] ([phone] - PDF . Lipid Profile 04/19/2018 Julien Nelson ([facility]) Cholesterol 102 mg/dL Low 120-200 22 Triglycerides 99 mg/dL 30-200 HDL Cholesterol 37 mg/dL 30-70 LDL (Calculated) 45 CALC 0-129 VLDL Cholesterol 20 mg/dL 0-50 HDL Risk Factor 2.8 CALC 0.0-4.4 Comprehensive Metabolic 04/19/2018 Julien Nelson ([facility]) Sodium 135 mEq/L 134-149 Prof Potassium 4.8 mEq/L 3.6-5.5 Chloride 97 mEq/L 94-112 Carbon Dioxide 29 mEq/L 21-32 Glucose 84 mg/dL 70-105 BUN 18 mg/dL 6-26 Creatinine 0.8 mg/dL 0.6-1.4 BUN/Creat Ratio 22.5 CALC 8.0-36.0 Calcium 9.8 mg/dL 8.6-10.2 Total Protein 9.6 g/dL High 6.4-8.3 23 Albumin 4.1 g/dL 3.8-5.5 Globulin 5.5 g/dL High 2.0-4.8 A/G Ratio 0.7 CALC 0.6-2.3 Alk. Phosphatase 65 U/L 22-95 Alt (SGPT) 21 U/L 7-35 Ast (Sgot) 13 U/L 5-34 Total Bilirubin 0.4 mg/dL 0.2-1.3 GFR Non- >60 ml/min/1.73m^ >=60 GFR >60 ml/min/1.73m^ >=60 Laboratory test 04/19/2018 [facility] PDF [id number] SEE IMAGE finding [address] [place] [address] (128)- - Laboratory test 04/19/2018 Victoria Leslie ([facility]) TSH 1.72 mIU/L 0.50-6 finding .00 CBC Electronic 04/19/2018 Victoria Leslie ([facility]) WBC 7.5 4.0-10 Fma x10^3/UL .0 RBC 4.58 x10^6/UL 3.93-6.00 HGB 14.8 g/dL 12.0-17.0 HCT 44 % 35-50 MCV 95.0 fL 80.0-95.0 MCH 32.2 pg 25.6-32.2 MCHC 34.0 g/dL 32.2-36.0 RDW-CV 13.0 % 11.6-14.4 PLT 202 x10^3/UL 163-400 MPV 10.0 fL 9.4-12.4 Cody# 5.11 x10^3/UL 1.56-6.13 Lymph# 1.45 x10^3/UL 1.18-3.74 [place]# 0.77 x10^3/UL 0.24-0.82 Eos # 0.1 x10^3/UL 0.0-0.5 Baso # 0.03 x10^3/UL 0.01-0.08 [place]% 68.0 % 34.0-70.0 Lymph % 19.3 % Low 20.0-52.0 [place]% 10.3 % 5.0-12.0 Eos% 1.9 % 0.7-7.0 Baso% 0.4 % 0.1-1.2 CBC Auto Diff 02/15/2018 [facility] White Blood Count 6.3 10^3/uL N 3.5-10.8 Red Blood Count 4.30 10^6/uL N 4.00-5.40 Hemoglobin 14.0 g/dL N 14.0-18.0 Hematocrit 40 % Low 42-52 Mean Corpuscular Volume 92 fL N 80-94 Mean Corpuscular Hemoglobin 33 pg High 27-31 Mean Corpuscular HGB Conc 35 g/dL N 31-36 Red Cell Distribution Width 14 % N 10.5-15 Platelet Count 162 10^3/uL N 150-450 Mean Platelet Volume 7.9 um3 N 7.4-10.4 Abs Neutrophils 4.5 10^3/uL N 1.5-7.7 Abs Lymphocytes 1.2 10^3/uL N 1.0-4.8 Abs Monocytes 0.6 10^3/uL N 0-0.8 Abs Eosinophils 0.1 10^3/uL N 0-0.6 Abs Basophils 0 10^3/uL N 0-0.2 Abs Nucleated RBC 0 10^3/uL Granulocyte % 70.4 % N 38-83 Lymphocyte % 18.5 % Low 25-47 Monocyte % 9.6 % High 0-7 Eosinophil % 0.9 % N 0-6 Basophil % 0.6 % N 0-2 Nucleated Red Blood Cells % 0 Comp Metabolic Panel 02/15/2018 [facility] Sodium 136 mmol/L N 135-145 Potassium 3.9 mmol/L N 3.5-5.0 Chloride 98 mmol/L Low 101-111 Co2 Carbon Dioxide 32 mmol/L N 22-32 Anion Gap 6 mmol/L N 2-11 Glucose 79 mg/dL N 70-100 Blood Urea Nitrogen 22 mg/dL N 6-24 Creatinine 1.34 mg/dL High 0.67-1.17 BUN/Creatinine Ratio 16.4 N 8-20 Calcium 9.5 mg/dL N 8.6-10.3 Total Protein 8.8 g/dL N 6.4-8.9 Albumin 3.6 g/dL N 3.2-5.2 Globulin 5.2 g/dL High 2-4 Albumin/Globulin Ratio 0.7 Low 1-3 Total Bilirubin 0.40 mg/dL N 0.2-1.0 Alkaline Phosphatase 54 U/L N 34-104 Alt 18 U/L N 7-52 Ast 15 U/L N 13-39 Egfr Non- 55.1 >60 Egfr 66.7 >60 24 Laboratory test finding 02/15/2018 [facility] Acetaminophen < 15 g/mL 25 Alcohol < 10 mg/dL N <10 Salicylate < 2.50 mg/dL <30 TSH (Thyroid Stim Horm) 2.27 mcIU/mL N 0.34-5.60 Troponin I 0.00 ng/mL <0.04 Laboratory test finding 06/03/2017 [facility] Acetaminophen < 15 g/mL 26 Alcohol < 10 mg/dL N <10 Salicylate < 2.50 mg/dL <30 TSH (Thyroid Stim Horm) 3.07 mcIU/mL N 0.34-5.60 Urinalysis Profile 06/03/2017 [facility] Urine Color Yellow Urine Appearance Clear Urine Specific [place] 1.010 N 1.010-1.030 Urine pH 6.0 N 5-9 Urine Urobilinogen Negative Negative Urine Ketones Negative Negative Urine Protein Negative Negative Urine Leukocytes Negative Negative Urine Blood Negative Negative Urine Nitrite Negative Negative Urine Bilirubin Negative Negative Urine Glucose Negative Negative Urine Drug 06/03/2017 [facility] Amphetamine Ur Presumptive Posi Abnormal None Detect 27 SCR ED & Screen <SEE NOTE> Pain Clinic Barbiturates Urine Screen None Detected None Detect Benzodiazepine Urine Screen None Detected None Detect Urine Cannabinoids Screen Presumptive Posi <SEE NOTE> Abnormal None Detect 28 Urine Cocaine Screen None Detected None Detect Urine Opiates Screen None Detected None Detect Urine Phencyclidine Screen None Detected None Detect 29 Comp Metabolic Panel 06/03/2017 [facility] Sodium 136 mmol/L N 133-145 Potassium 4.1 mmol/L N 3.5-5.0 Chloride 101 mmol/L N 101-111 Co2 Carbon Dioxide 30 mmol/L N 22-32 Anion Gap 5 mmol/L N 2-11 Glucose 68 mg/dL Low 70-100 Blood Urea Nitrogen 30 mg/dL High 6-24 Creatinine 1.26 mg/dL High 0.67-1.17 BUN/Creatinine Ratio 23.8 High 8-20 Calcium 10.3 mg/dL N 8.6-10.3 Total Protein 9.0 g/dL High 6.4-8.9 Albumin 3.9 g/dL N 3.2-5.2 Globulin 5.1 g/dL High 2-4 Albumin/Globulin Ratio 0.8 Low 1-3 Total Bilirubin 0.40 mg/dL N 0.2-1.0 Alkaline Phosphatase 50 U/L N 34-104 Alt 13 U/L N 7-52 Ast 13 U/L N 13-39 Egfr Non- 59.4 >60 Egfr 76.4 >60 30 Comprehensive Metabolic 05/12/2017 Victoria Leslie ([facility]) Sodium 141 mEq/L 134-149 Prof Potassium 4.2 mEq/L 3.6-5.5 Chloride 103 mEq/L 94-112 Carbon Dioxide 29 mEq/L 21-32 Glucose 88 mg/dL 70-105 BUN 25 mg/dL 6-26 Creatinine 1.1 mg/dL 0.6-1.4 BUN/Creat Ratio 22.7 CALC 8.0-36.0 Calcium 10.0 mg/dL 8.6-10.2 Total Protein 9.3 g/dL High 6.4-8.3 31 Albumin 4.0 g/dL 3.8-5.5 Globulin 5.3 g/dL High 2.0-4.8 A/G Ratio 0.8 CALC 0.6-2.3 Alk. Phosphatase 57 U/L 22-95 Alt (SGPT) 16 U/L 7-35 Ast (Sgot) 15 U/L 5-34 Total Bilirubin 0.3 mg/dL 0.2-1.3 GFR Non- >60 ml/min/1.73m^ >=60 GFR >60 ml/min/1.73m^ >=60 Toxassure Select 13 05/12/2017 [facility] Report Summary FINAL 32 (MW) [address] [place] [address] (431)- - PDF . Laboratory test 05/12/2017 [facility] PDF [id number] SEE IMAGE finding [address] [place] [address] ([phone] - Toxassure Select 01/06/2017 [facility] Report Summary FINAL 33 13 (MW) [address] [place] [address] (767)- - PDF . Laboratory test 01/06/2017 [facility] PDF [id number] SEE IMAGE finding [address] [place] [address] (607)- - CBC Electronic 10/30/2016 [facility] WBC 5.5 3.6-9. (a) (607)- - 6 RBC 4.51 3.90-5.70 Hemoglobin (Fma/CMC/CTX) 14.2 g/dL 12.1 - 17.2 Hematocrit (Fma/CMC/CTX) 41.6 % 36.1 - 50.3 Platelets 198 10^3/ul 150-400 Lymph% 29.5 % 17.0-48.0 Mixed% 5.7 Neutrophils % 64.8 Mean Corpuscular Vol 92 82.2-97.4 Mean Corpuscular Hemoglobin 31.4 27.6-33.3 Mean Corpuscular Hemo Concen 34.1 32.0-36.0 RDW 14.2 High 11.6-13.7 Mean Platelet Volume 6.9 5.5-11.0 Ua - Non Micro (a) 10/30/2016 [facility] Appearance CLEAR (607)- - Color YELLOW Glucose, Urine (Fma/CMC/CTX) NEG Bilirubin NEG Ketones NEG SP Grav 1.010 Blood NEG PH 6.0 Protein NEG Urobil 0.2 Nitrite NEG Leukocytes (a/CMC/Centrex) NEG Comprehensive Metabolic 10/30/2016 Victoria Leslie ([facility]) Sodium 138 mEq/L 134-149 Prof Potassium 4.4 mEq/L 3.6-5.5 Chloride 101 mEq/L 94-112 Carbon Dioxide 23 mEq/L 21-32 Glucose 100 mg/dL 70-105 BUN 22 mg/dL 6-26 Creatinine 0.9 mg/dL 0.6-1.4 BUN/Creat Ratio 24.4 CALC 8.0-36.0 Calcium 9.7 mg/dL 8.6-10.2 Total Protein 9.2 g/dL High 6.4-8.3 34 Albumin 4.0 g/dL 3.8-5.5 Globulin 5.2 g/dL High 2.0-4.8 A/G Ratio 0.8 CALC 0.6-2.3 Alk. Phosphatase 53 U/L 22-95 Alt (SGPT) 21 U/L 7-35 Ast (Sgot) 14 U/L 5-34 Total Bilirubin 0.5 mg/dL 0.2-1.3 GFR Non- >60 ml/min/1.73m^ >=60 GFR >60 ml/min/1.73m^ >=60 Laboratory test finding 10/30/2016 Julien Nelson ([facility]) TSH 1.80 mIU/L 0.50-6.00 Free T4 1.05 ng/dL 0.75-1.54 Lipid Profile 10/30/2016 Julien Nelson ([facility]) Cholesterol 114 mg/dL Low 120-200 35 Triglycerides 69 mg/dL 30-200 HDL Cholesterol 43 mg/dL 30-70 LDL (Calculated) 57 CALC 0-129 VLDL Cholesterol 14 mg/dL 0-50 HDL Risk Factor 2.7 CALC 0.0-4.4 Toxassure Select 13 10/30/2016 [facility] Report Summary FINAL 36 (MW) [address] [place] [address] (834)- - PDF . Laboratory test 10/30/2016 [facility] PDF [id number] SEE IMAGE finding [address] [place] [address] (279)- - CBC Auto Diff 07/27/2016 [facility] White Blood Count 8.2 10^3/uL N 3.5-10 .8 Red Blood Count 4.51 10^6/uL N 4.0-5.4 Hemoglobin 14.0 g/dL N 14.0-18.0 Hematocrit 40 % Low 42-52 Mean Corpuscular Volume 89 fL N 80-94 Mean Corpuscular Hemoglobin 31 pg N 27-31 Mean Corpuscular HGB Conc 35 g/dL N 31-36 Red Cell Distribution Width 13 % N 10.5-15 Platelet Count 191 10^3/uL N 150-450 Mean Platelet Volume 8 um3 N 7.4-10.4 Abs Neutrophils 6.2 10^3/uL N 1.5-7.7 Abs Lymphocytes 1.2 10^3/uL N 1.0-4.8 Abs Monocytes 0.7 10^3/uL N 0-0.8 Abs Eosinophils 0 10^3/uL N 0-0.6 Abs Basophils 0 10^3/uL N 0-0.2 Abs Nucleated RBC 0.01 10^3/uL N Granulocyte % 75.4 % N 38-83 Lymphocyte % 15.1 % Low 25-47 Monocyte % 8.6 % N 1-9 Eosinophil % 0.5 % N 0-6 Basophil % 0.4 % N 0-2 Nucleated Red Blood Cells % 0.1 N Urine Drug SCR ED 07/27/2016 [facility] Amphetamine Ur Screen None Detected N None Detect & [facility] Barbiturates Urine Screen None Detected N None Detect Benzodiazepine Urine Screen None Detected N None Detect Urine Cannabinoids Screen Presumptive Posi <SEE NOTE> Abnormal None Detect 37 Urine Cocaine Screen None Detected N None Detect Urine Opiates Screen None Detected N None Detect Urine Phencyclidine Screen Presumptive Posi <SEE NOTE> Abnormal None Detect 38 Comp Metabolic Panel 07/27/2016 [facility] Sodium 126 mmol/L Low 133-145 Potassium 3.6 mmol/L N 3.5-5.0 Chloride 91 mmol/L Low 101-111 Co2 Carbon Dioxide 26 mmol/L N 22-32 Anion Gap 9 mmol/L N 2-11 Glucose 86 mg/dL N 70-100 Blood Urea Nitrogen 20 mg/dL N 6-24 Creatinine 1.12 mg/dL N 0.67-1.17 BUN/Creatinine Ratio 17.9 N 8-20 Calcium 9.7 mg/dL N 8.6-10.3 Total Protein 9.1 g/dL High 6.4-8.9 Albumin 3.8 g/dL N 3.2-5.2 Globulin 5.3 g/dL High 2-4 Albumin/Globulin Ratio 0.7 Low 1-3 Total Bilirubin 0.80 mg/dL N 0.2-1.0 Alkaline Phosphatase 61 U/L N 34-104 Alt 16 U/L N 7-52 Ast 16 U/L N 13-39 Egfr Non- 68.1 N >60 Egfr 87.5 N >60 39 Laboratory test finding 07/27/2016 [facility] Acetaminophen < 15 g/mL N 40 Alcohol < 10 mg/dL N <10 Salicylate < 2.50 mg/dL N <30 TSH (Thyroid Stim Horm) 2.25 mcIU/mL N 0.34-5.60 Urinalysis Profile 07/27/2016 [facility] Urine Color Yellow N Urine Appearance Clear N Urine Specific [place] 1.015 N 1.010-1.030 Urine pH 6.0 N 5-9 Urine Urobilinogen Negative N Negative Urine Ketones Trace Abnormal Negative Urine Protein Negative N Negative Urine Leukocytes Negative N Negative Urine Blood Negative N Negative * * Abnormal Negative 41 Urine Nitrite Negative N Negative Urine Bilirubin Negative N Negative Urine Glucose Negative N Negative Comprehensive Metabolic 04/14/2016 Julien Leslie ([facility]) Sodium 139 mEq/L 134-149 Prof Potassium 4.4 mEq/L 3.6-5.5 Chloride 98 mEq/L 94-112 Carbon Dioxide 29 mEq/L 21-32 Glucose 82 mg/dL 70-105 BUN 20 mg/dL 6-26 Creatinine 1.1 mg/dL 0.6-1.4 BUN/Creat Ratio 18.2 CALC 8.0-36.0 Calcium 9.9 mg/dL 8.6-10.2 Total Protein 9.4 g/dL High 6.4-8.3 42 Albumin 4.2 g/dL 3.8-5.5 Globulin 5.2 g/dL High 2.0-4.8 A/G Ratio 0.8 CALC 0.6-2.3 Alk. Phosphatase 62 U/L 22-95 Alt (SGPT) 24 U/L 7-35 Ast (Sgot) 20 U/L 5-34 Total Bilirubin 0.5 mg/dL 0.2-1.3 GFR Non- >60 ml/min/1.73m^ >=60 GFR >60 ml/min/1.73m^ >=60 Laboratory test finding 04/14/2016 Julien Nelson ([facility]) TSH 1.53 mIU/L 0.50-6.00 Free T4 1.06 ng/dL 0.75-1.54 Laboratory test 04/14/2016 [facility] C-Reactive 6.9 mg/L High 0.0-4.[address] Protein, [place] [address] (607)- - CBC Electronic 04/14/2016 [facility] WBC 6.4 3.6-9.6 (Fma) (607)- - RBC 4.62 3.90-5.70 Hemoglobin (Fma/CMC/CTX) 14.0 g/dL 12.1 - 17.2 Hematocrit (Fma/CMC/CTX) 42.7 % 36.1 - 50.3 Platelets 202 10^3/ul 150-400 Lymph% 22.5 % 17.0-48.0 Mixed% 4.0 Neutrophils % 73.5 Mean Corpuscular Vol 92 82.2-97.4 Mean Corpuscular Hemoglobin 30.3 27.6-33.3 Mean Corpuscular Hemo Concen 32.7 32.0-36.0 RDW 14.1 High 11.6-13.7 Mean Platelet Volume 6.6 5.5-11.0 Ua - Non Micro (Fma) 08/28/2014 [facility] Appearance CLEAR (607)- - Color YELLOW Glucose, Urine (Fma/CMC/CTX) NEG Bilirubin NEG Ketones NEG SP Grav 1.010 Blood NEG PH 5.5 Protein NEG Urobil 0.2 Nitrite NEG Leukocytes (Fma/CMC/Centrex) NEG 1 Therapeutic concentration: <50 ug/mL Toxic concentration: >120 ug/mL 2 Because ethnic data is not always readily [...] 15-29 5 Kidney failure <15 (or dialysis) 3 Presumptive Positive Presumptive positive results are unconfirmed. 4 The urine specimen was tested at the listed cutoffs: Drug class test level (ng/mL) Amphetamines 500 Barbiturates 200 Benzodiazepine metabolites 200 Cocaine metabolites 150 Cannabinoids 50 Opiates 300 Pcp 25 Specimen was received without chain of custody. Results should be used for medical purposes only. 5 Therapeutic concentration: <50 ug/mL Toxic concentration: >120 ug/mL 6 Because ethnic data is not always readily [...] 15-29 5 Kidney failure <15 (or dialysis) 7 Therapeutic concentration: <50 ug/mL Toxic concentration: >120 ug/mL 8 Because ethnic data is not always readily [...] 15-29 5 Kidney failure <15 (or dialysis) 9 consistent w/ previous results 10 Protein electrophoresis scan will follow via computer, mail, or taker out delivery. 11 Quantity was not sufficient for analysis. 12 Quantity was not sufficient for analysis. 13 Quantity was not sufficient for analysis. 14 Immunofixation shows IgM monoclonal protein with kappa light chain specificity. 15 Written Authorization Received. Authorization received from [employer] 05-01-2018 Logged by PROSPER MENDEZ 16 Quantity was not sufficient for analysis. TEST: [id number] Immunoglobulin G, Qn, Serum Panel: [id number] Immunoglobulin A, Qn, Serum Panel: [id number] Immunoglobulin M, Qn, Serum Panel: [id number] 17 Because ethnic data is not always readily [...] 15-29 5 Kidney failure <15 (or dialysis) 18 Therapeutic concentration: <50 ug/mL Toxic concentration: >120 ug/mL 19 Presumptive Positive Presumptive positive results are unconfirmed. 20 The urine specimen was tested at the listed cutoffs: Drug class test level (ng/mL) Amphetamines 500 Barbiturates 200 Benzodiazepine metabolites 200 Cocaine metabolites 150 Cannabinoids 50 Opiates 300 Pcp 25 Specimen was received without chain of custody. Results should be used for medical purposes only. 21 TOXASSURE SELECT 13 (MW) Test Result Flag Units Drug Present not Declared for Prescription Verification Carboxy-THC 362 UNEXPECTED ng/mg creat Carboxy-THC is a metabolite of tetrahydrocannabinol (THC). Source of THC is most commonly illicit, but THC is also present in a scheduled prescription medication. Drug Absent but Declared for Prescription Verification Alprazolam Not Detected UNEXPECTED ng/mg creat Test Result Flag Units Ref Range Creatinine 121 mg/dL >=20 Declared Medications: The flagging and interpretation on this report are based on the following declared medications. Unexpected results may arise from inaccuracies in the declared medications. Note: The testing scope of this panel includes these medications: Alprazolam (Xanax) Note: The testing scope of this panel does not include following reported medications: Docusate Trazodone For clinical consultation, please call . 22 RESULTS VERIFIED BY REPEAT ANALYSIS 23 RESULTS VERIFIED BY REPEAT ANALYSIS 24 Because ethnic data is not always readily [...] 15-29 5 Kidney failure <15 (or dialysis) 25 Therapeutic concentration: <50 ug/mL Toxic concentration: >120 ug/mL 26 Therapeutic concentration: <50 ug/mL Toxic concentration: >120 ug/mL 27 Presumptive Positive Presumptive positive results are unconfirmed. 28 Presumptive Positive Presumptive positive results are unconfirmed. 29 The urine specimen was tested at the listed cutoffs: Drug class test level (ng/mL) Amphetamines 500 Barbiturates 200 Benzodiazepine metabolites 200 Cocaine metabolites 150 Cannabinoids 50 Opiates 300 Pcp 25 Specimen was received without chain of custody. Results should be used for medical purposes only. 30 Because ethnic data is not always readily [...] 15-29 5 Kidney failure <15 (or dialysis) 31 consistent w/ previous results 32 TOXASSURE SELECT 13 (MW) Test Result Flag [...] Trazodone For clinical consultation, please call . 33 TOXASSURE SELECT 13 (MW) Test Result Flag [...] Trazodone For clinical consultation, please call . 34 consistent w/ previous results 35 RESULTS VERIFIED BY REPEAT ANALYSIS 36 TOXASSURE SELECT 13 (MW) Test Result Flag [...] Trazodone For clinical consultation, please call . 37 Presumptive Positive Presumptive positive results are unconfirmed. 38 Presumptive Positive Presumptive positive results are unconfirmed. The urine specimen was tested at the listed cutoffs: Drug class test level (ng/mL) Amphetamines 500 Barbiturates 200 Benzodiazepine metabolites 200 Cocaine metabolites 150 Cannabinoids 50 Opiates 300 Pcp 25 Specimen was received without chain of custody. Results should be used for medical purposes only. 39 Because ethnic data is not always readily [...] 15-29 5 Kidney failure <15 (or dialysis) 40 Therapeutic concentration: <50 ug/mL Toxic concentration: >120 ug/mL 41 *Ascorbic acid is present which may interfere with detection of blood. 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, predom inattentive type F10.21 Alcohol dependence, in remission R94.5 Abnormal results of liver function studies Z13.220 Encounter for screening for lipoid disorders R63.4 Abnormal weight loss Z12.11 Encounter for screening for malignant neoplasm of colon Office Visit 04/14/2016 2:45p Main Office Angelica Beyer, R19.4 Change in bowel Afnp-C habit R11.0 Nausea G47.00 Insomnia, unspecified F10.21 Alcohol dependence, in remission M79.672 Pain in left foot F90.2 Attention-deficit hyperactivity disorder, combined type Office Visit 03/11/2015 3:00p Main Office Beatriz Tavarez, M48.02 Spinal stenosis, M.D. cervical region K59.09 Other constipation M25.562 Pain in left knee Office Visit 01/28/2015 10:45a Main Office Radha Steele, M25.562 Pain in left [employer] knee Office Visit 12/03/2014 10:40a Main Office Beatriz Tavarez M.D. 723.0 Stenosis Spinal Cervical Region 300.00 Anxiety State Unspec 794.8 Liver Study Abnormal V77.91 Screening For Lipoid Disorders Office Visit 08/28/2014 1:00p Main Office Nancy Kennedy NP 723.1 Cervicalgia 719.46 Pain Joint Lower Leg 719.41 Pain Joint Shoulder Region 300.00 Anxiety State Unspec V70.0 Examination General Medical Routine AT Health Care Facility Plan of Treatment Future Appointment(s):07/17/2018 3:30 pm - Beatriz Tavarez M.D. at Main [id number] 2:20 pm - Beatriz Tavarez M.D. at Main [id number]/12/2018 10:20 am - Beatriz Tavarez M.D. 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
[2018-07-07 15:41] LABS: ABS Basophils 0 10^3/ul (0-0.2); ABS Eosinophils 0 10^3/ul (0-0.6); ABS Monocytes 0.7 10^3/ul (0-0.8); ABS Neutrophils 4.8 10^3/ul (1.5-7.7); ABS Nucleated RBC 0 10^3/ul; Eosinophil % 0.7 %; Hematocrit 38 % (36-46); Hemoglobin 13.2 g/dL (14.0-18.0); Lymphocyte % 15.3 %; Mean Corpuscular HGB Conc 35 g/dL (31-36); Mean Corpuscular Hemoglobin 33 pg (27-31); Mean Corpuscular Volume 92 fL (80-94); Mean Platelet Volume 7.3 fL (7.4-10.4); Nucleated Red Blood Cells % 0; Platelet Count 245 10^3/uL (150-450); Red Blood Count 4.08 10^6 /uL (4.18-5.48); Red Cell Distribution Width 13 % (10.5-15); White Blood Count 6.6 10^3/uL (3.5-10.8)
--- NOTE | 2018-07-07 15:41 | ED ---
Psychiatric Complaint - HPI Summary HPI Summary: A 57 y/o male presents to [facility] with a chief complaint of auditory hallucinations. The patient reports that he has been struggling with this and taking dextromethorphan for months. At triage he rated his pain as a 0/10 in severity. He reports SI. He claims that the voices that he hears does not tell him to harm himself, but he does report that he cannot concentrate on anything because of the voices. He reports that he lives alone and [place]. He claims that he has people that are plotting to kill him. He denies taking any psych medications. He reports that he has been admitted before around 2014. He reports some marijuana use. He denies EtOH use and HI. He says that he is sick of his situation and wants to get help. - History Of Current Complaint Chief Complaint: EDMentalHealth Time Seen by Provider: 07/07/18 14:54 Hx Obtained From: Patient Onset/Duration: Gradual Onset, Lasting Weeks, Still Present Timing: Weeks Severity Initially: Mild Severity Currently: Mild Character: Manic Aggravating Factor(s): Nothing Alleviating Factor(s): Nothing Associated Signs And Symptoms: Positive: Hallucinating Related History: Positive For: Prior Psychiatric Issues Has Suicidal: Reports: Thoughts Has Homicidal: Denies: Thoughts - Allergies/Home Medications Allergies/Adverse Reactions: Allergies Allergy/AdvReac Type Severity Reaction Status Date / Time No Known Allergies Allergy Verified 07/07/18 14:44 PMH/Surg Hx/FS Hx/Imm Hx Endocrine/Hematology History: Denies: Hx Anticoagulant Therapy Cardiovascular History: Reports: Other Cardiovascular Problems/Disorders - unspecific cardiac issues per H+P Respiratory History: Denies: Hx Asthma, Hx Chronic Bronchitis History: Denies: Hx Dialysis Musculoskeletal History: Reports: Hx Back Problems - spondylosis, Other Musculoskeletal History - hx of spinal stenosis Sensory History: Denies: Hx Contacts or Glasses Opthamlomology History: Denies: Hx Contacts or Glasses Neurological History: Reports: Hx Seizures - With ETOH detox Psychiatric History: Reports: Hx Anxiety, Hx Attention Deficit Hyperactivity Disorder, Hx Depression, Hx Inpatient Treatment, Hx Community Mental Health Tx, Hx Suicide Attempt - 1999, Hx of Violent Episodes Against Others, Hx Substance Abuse - alcohol Denies: Hx Eating Disorder, Hx Panic Disorder, Hx Post Traumatic Stress Disorder, Hx Schizophrenia, Hx Bipolar Disorder, Other Psychiatric Issues/ Disorders - Surgical History Surgery Procedure, Year, and Place: No surgical history - Immunization History Date of Tetanus Vaccine: unknown Date of Influenza Vaccine: NO Infectious Disease History: No Infectious Disease History: Reports: Hx Hepatitis Denies: Traveled Outside the [place] in Last 30 Days - Family History Known Family History: Positive: Other - Alcohol abuse Negative: Hypertension Family History: No FHx schizophrenia - Social History Alcohol Use: None Alcohol Amount: 7.5 years sober as of May 2018 Hx Substance Use: Yes Substance Use Type: Reports: Marijuana, Other Substance Use Comment - Amount & Last Used: cough syrup Hx Tobacco Use: Yes Smoking Status (MU): Former Smoker Type: Cigarettes Have You Smoked in the Last Year: No Review of Systems Negative: Fever Positive: Other - positive: SI, auditory hallucinations. Negative: HI All Other Systems Reviewed And Are Negative: Yes Physical Exam - Summary Physical Exam Summary: GENERAL: Patient is a well-developed and nourished M who is lying comfortable in the stretcher. Patient is not in any acute respiratory distress. HEAD AND FACE: Normocephalic EYES: PERRLA, EOMI x 2. EARS: Hearing grossly intact. MOUTH: Oropharynx within normal limits. NECK: Supple, trachea is midline, no adenopathy, no JVD, no carotid bruit. CHEST: Symmetric, no tenderness at palpation LUNGS: Clear to auscultation bilaterally. No wheezing or crackles. CVS: Regular rate and rhythm, S1 and S2 present, no murmurs or gallops appreciated. ABDOMEN: Soft, non-tender. Bowel sounds are normal. No abdominal abnormal pulsations. EXTREMITIES: Full ROM in all major joints, no edema, no cyanosis or clubbing. NEURO: Alert and oriented x 3. No acute neurological deficits. Speech is normal and follows commands. SKIN: Dry and warm Psych: SI, auditory hallucinations, no HI. Triage Information Reviewed: Yes Vital Signs On Initial Exam: Initial Vitals Temp Pulse Resp BP Pulse Ox 98.4 F 83 16 155/93 98 07/07/18 14:39 07/07/18 14:39 07/07/18 14:39 07/07/18 14:39 07/07/18 14:39 Vital Signs Reviewed: Yes Diagnostics - Vital Signs Vital Signs Temp Pulse Resp BP Pulse Ox 07/07/18 14:39 98.4 F 83 16 155/93 98 - Laboratory Result Diagrams: 07/07/18 15:18 07/07/18 15:18 Lab Statement: Any lab studies that have been ordered have been reviewed, and results considered in the medical decision making process. Re-Evaluation - Re-Evaluation First Eval Re-Evaluation Time: 16:35 Change: Unchanged Comment: Pt cleared for MHE Course/Dx - Course Course Of Treatment: A 57 y/o male presents to [facility] with a chief complaint of auditory hallucinations. The patient reports that he has been struggling with this and taking dextromethorphan for months. The physical exam revealed SI, auditory hallucinations, no HI. Bloodwork chemistries and urines obtained and the patient has been cleared for MHE. The patient will be signed out from Dr. Ortiz to Dr. Jaquez upon shift change at 19:00 07/07/18 pending MHE. - Differential Dx/Clinical Impression Provider Diagnosis: Substance use disorder Discharge - Sign-Out/Discharge Documenting (check all that apply): Sign-Out Patient Signing out patient TO: Sixto Jaquez - pending MHE Patient Received Moderate/Deep Sedation with Procedure: No - Discharge Plan Condition: Stable Disposition: HOME Patient Education Materials: Polysubstance Abuse (ED) Referrals: mission, custodial [Other] [facility] Beatriz Tavarez MD [Primary Care Provider] - - Billing Disposition and Condition Condition: STABLE Disposition: Home - Attestation Statements Document Initiated by Scribe: Yes Documenting Scribe: Aydin Leon Provider For Whom Tj is Documenting (Include Credential): Leann Ortiz MD Scribe Attestation: Aydin Zhang scribed for Leann Ortiz MD on 07/08/18 at 0733. Scribe Documentation Reviewed: Yes Provider Attestation: The documentation as recorded by the Aydin london accurately reflects the service I personally performed and the decisions made by me, Jong Ortiz MD Status of Scribe Document: Viewed
[2018-07-07 15:45] LABS: ALT 23 U/L (7-52); AST 19 U/L (13-39); Albumin 3.7 g/dL (3.2-5.2); Albumin/Globulin Ratio 0.8 (1-3); Alkaline Phosphatase 66 U/L (34-104); Anion Gap 6 mmol/L (2-11); BUN/Creatinine Ratio 14.9 (8-20); Blood Urea Nitrogen 15 mg/dL (6-24); CO2 Carbon Dioxide 27 mmol/L (22-32); Calcium 9.4 mg/dL (8.6-10.3); Chloride 93 mmol/L (101-111); EGFR African American 92.5 (>60); EGFR Non-African American 76.4 (>60); Globulin 4.8 g/dL (2-4); Glucose 98 mg/dL (70-100); Potassium 3.8 mmol/L (3.5-5.0); Sodium 126 mmol/L (135-145); Total Protein 8.5 g/dL (6.4-8.9)
[2018-07-07 15:46] LABS: Urine Appearance Clear; Urine Bilirubin Negative (Negative); Urine Blood Negative (Negative); Urine Color Yellow; Urine Glucose Negative (Negative); Urine Ketones Negative (Negative); Urine Nitrite Negative (Negative); Urine Protein Negative (Negative); Urine Specific Gravity 1.011 (1.010-1.030); Urine Urobilinogen Negative (Negative)
[2018-07-07 15:57] LABS: Acetaminophen < 15 mcg/mL; Alcohol < 10 mg/dL (<10); Salicylate < 2.50 mg/dL (<30)
[2018-07-07 16:09] LABS: TSH (Thyroid Stimulating Horm) 1.22 mcIU/mL (0.34-5.60)
[2018-07-07 16:14] LABS: Barbiturates Urine Screen None Detected (None Detect); Benzodiazepine Urine Screen None Detected (None Detect); Urine Cannabinoids Screen Presumptive Positive (None Detect)
[2018-07-07] MEDS ORDERED: Acetaminophen TAB* 325 MG PO ONE (16:24)
[2018-07-07] MEDS ORDERED: LORazepam TAB(*) 1 MG PO ONE (16:24)
--- NOTE | 2018-07-07 19:17 | ED ---
Progress - Progress Note Progress Note: Receiving sign out from Dr. Ortiz, pending MHE. Pt's condition has been stable. He will be discharged with a final dx of substance use disorder. Course/Dx - Diagnoses Provider Diagnoses: Substance use disorder - Provider Notifications Discussed Care Of Patient With: Jelly Badillo Time Discussed With Above Provider: 20:30 Instructed by Provider To: Other - Pt can be discharged with a final dx of substance use disorder. Since he is homeless they will work on finding him a jail or addiction crisis home. Discharge - Sign-Out/Discharge Documenting (check all that apply): Patient Departure - Discharge, Receiving Sign-Out Receiving patient FROM: Leann Ortiz Patient Received Moderate/Deep Sedation with Procedure: No - Discharge Plan Condition: Stable Referrals: Beatriz Tavarez MD [Primary Care Provider] - - Attestation Statements Document Initiated by Scribe: Yes Documenting Scribe: Ave Camp Provider For Whom Scribe is Documenting (Include Credential): Sixto Jaquez MD Scribe Attestation: Ave Zhang, scribed for Sixto Jaquez MD on 07/07/18 at 2101. Status of Scribe Document: Ready
[2018-07-07 21:51] VITALS: BP 144/98
== END 2018-07-07 22:20 | disposition home or self-care (01) ==
LOC: ED 14:37
DX: F12.90 Cannabis use, unspecified, uncomplicated (principal); F19.90 Other psychoactive substance use, unspecified, uncomplicated; R44.0 Auditory hallucinations; R45.851 Suicidal ideations; Z87.891 Personal history of nicotine dependence
CPT/HCPCS: 36415; 80053; 80307; 80320; 80329; 81003; 84443; 85025; 99284; A9270-GY; G0480

== ENCOUNTER → 2018-08-21 13:49 | Emergency (ER) | payer OTHER ==
[~2018-08-21 13:49] MED LIST: NS 0.9% 1000 ML** 1,000 ML IV ONE
[2018-08-21 14:22] LABS: ABS Lymphocytes 0.7 10^3/ul (1.0-4.8); ABS Monocytes 0.7 10^3/ul (0-0.8); ABS Neutrophils 6.3 10^3/ul (1.5-7.7); Eosinophil % 0.5 %; Hematocrit 40 % (42-52); Hemoglobin 14.2 g/dL (14.0-18.0); Lymphocyte % 9.5 %; Mean Corpuscular HGB Conc 35 g/dL (31-36); Mean Corpuscular Hemoglobin 32 pg (27-31); Mean Corpuscular Volume 92 fL (80-94); Mean Platelet Volume 7.3 fL (7.4-10.4); Nucleated Red Blood Cells % 0.1; Platelet Count 199 10^3/uL (150-450); Red Blood Count 4.37 10^6 /uL (4.18-5.48); Red Cell Distribution Width 13 % (10.5-15); White Blood Count 7.8 10^3/uL (3.5-10.8)
--- NOTE | 2018-08-21 14:31 | ED ---
Substance Abuse/Use - HPI Summary HPI Summary: Pt is a 58 y/o male brought in by police who presents to the ED c/o overdose. He has a history of daily DXM abuse and in the past has had hallucinations, as per medical records. As per police, he called 911 from a bus stop in [place] however was found on the [facility]. Pt felt confused, had auditory hallucinations, and had anxiety, and states that his body felt like lead. He denies any palpitations. PMHx alcoholism, anxiety, ADHD, depression, suicide attempt. - History Of Current Complaint Chief Complaint: EDOverdose Stated Complaint: MHE PER EMS Time Seen by Provider: 08/21/18 13:56 Hx Obtained From: Patient, EMS, Medical Records Ingestion History: Type/Name Of Drug - DXM Overdose Characteristics: Oral Timing Of Abuse: Daily Aggravating Factor(s): Nothing Alleviating Factor(s): Nothing Associated Signs And Symptoms: Confused, Hallucinating, Intentional Ingestion - Allergies/Home Medications Allergies/Adverse Reactions: Allergies Allergy/AdvReac Type Severity Reaction Status Date / Time No Known Allergies Allergy Verified 07/14/18 14:53 Home Medications: Home Medications Multivitamins/Minerals TAB* [Theragran/minerals TAB*] 1 tab PO DAILY 08/21/18 [ History Confirmed 08/21/18] PMH/Surg Hx/FS Hx/Imm Hx Endocrine/Hematology History: Denies: Hx Anticoagulant Therapy Cardiovascular History: Reports: Other Cardiovascular Problems/Disorders - unspecific cardiac issues per H+P Respiratory History: Denies: Hx Asthma, Hx Chronic Bronchitis History: Denies: Hx Dialysis Musculoskeletal History: Reports: Hx Back Problems - spondylosis, Other Musculoskeletal History - hx of spinal stenosis Sensory History: Denies: Hx Contacts or Glasses Opthamlomology History: Denies: Hx Contacts or Glasses Neurological History: Reports: Hx Seizures - With ETOH detox Psychiatric History: Reports: Hx Anxiety, Hx Attention Deficit Hyperactivity Disorder, Hx Depression, Hx Inpatient Treatment, Hx Community Mental Health Tx, Hx Suicide Attempt - 1999, Hx of Violent Episodes Against Others, Hx Substance Abuse - alcohol Denies: Hx Eating Disorder, Hx Panic Disorder, Hx Post Traumatic Stress Disorder, Hx Schizophrenia, Hx Bipolar Disorder, Other Psychiatric Issues/ Disorders - Surgical History Surgery Procedure, Year, and Place: No surgical history - Immunization History Date of Tetanus Vaccine: unknown Date of Influenza Vaccine: NO Infectious Disease History: No Infectious Disease History: Reports: Hx Hepatitis Denies: Traveled Outside the [place] in Last 30 Days - Family History Known Family History: Positive: Other - Alcohol abuse Negative: Hypertension Family History: No FHx schizophrenia - Social History Alcohol Use: None Alcohol Amount: 7.5 years sober as of May 2018 Hx Substance Use: Yes Substance Use Type: Reports: Marijuana, Other Substance Use Comment - Amount & Last Used: cough syrup Hx Tobacco Use: Yes Smoking Status (MU): Former Smoker Type: Cigarettes Have You Smoked in the Last Year: No Review of Systems Negative: Palpitations Positive: Anxious, Other - auditory hallucinations, confusion All Other Systems Reviewed And Are Negative: Yes Physical Exam - Summary Physical Exam Summary: GENERAL: Patient is a well-developed and nourished M who is lying comfortable in the stretcher. Patient is not in any acute respiratory distress. HEAD AND FACE: Normocephalic EYES: PERRLA, EOMI x 2. EARS: Hearing grossly intact. MOUTH: Oropharynx within normal limits. NECK: Supple, trachea is midline, no adenopathy, no JVD, no carotid bruit. CHEST: Symmetric, no tenderness at palpation LUNGS: Clear to auscultation bilaterally. No wheezing or crackles. CVS: Regular rate and rhythm, S1 and S2 present, no murmurs or gallops appreciated. ABDOMEN: Soft, non-tender. Bowel sounds are normal. No abnormal abdominal pulsations. EXTREMITIES: Full ROM in all major joints, no edema, no cyanosis or clubbing. NEURO: Alert and oriented x 3. No acute neurological deficits. Speech is normal and follows commands. Mild tremor. SKIN: Dry and warm PSYCH: Reports auditory hallucinations Triage Information Reviewed: Yes Vital Signs On Initial Exam: Initial Vitals Temp Pulse Resp BP Pulse Ox 100.1 F 96 20 172/110 98 08/21/18 14:08 08/21/18 14:08 08/21/18 14:08 08/21/18 14:08 08/21/18 14:08 Vital Signs Reviewed: Yes - Elie Coma Scale Best Eye Response: 4 - Spontaneous Best Motor Response: 6 - Obeys Commands Best Verbal Response: 5 - Oriented Coma Scale Total: 15 Diagnostics - Vital Signs Vital Signs Temp Pulse Resp BP Pulse Ox 08/21/18 14:08 100.1 F 96 20 172/110 98 - Laboratory Lab Results: Lab Results 08/21/18 Range/Units 14:13 WBC 7.8 (3.5-10.8) 10^3/uL RBC 4.37 (4.18-5.48) 10^6 /uL Hgb 14.2 (14.0-18.0) g/dL Hct 40 L (42-52) % MCV 92 (80-94) fL MCH 32 H (27-31) pg MCHC 35 (31-36) g/dL RDW 13 (10.5-15) % Plt Count 199 (150-450) 10^3/uL MPV 7.3 L (7.4-10.4) fL Neut % (Auto) 81.0 % Lymph % (Auto) 9.5 % Concho % (Auto) 8.5 % Eos % (Auto) 0.5 % Baso % (Auto) 0.5 % Absolute Neuts (auto) 6.3 (1.5-7.7) 10^3/ul Absolute Lymphs (auto) 0.7 L (1.0-4.8) 10^3/ul Absolute Monos (auto) 0.7 (0-0.8) 10^3/ul Absolute Eos (auto) 0.0 (0-0.6) 10^3/ul Absolute Basos (auto) 0.0 (0-0.2) 10^3/ul Absolute Nucleated RBC 0.0 10^3/ul Nucleated RBC % 0.1 Result Diagrams: 08/21/18 14:13 08/21/18 14:13 Lab Statement: Any lab studies that have been ordered have been reviewed, and results considered in the medical decision making process. - CT Brain CT CT Interpretation Completed By: Radiologist Summary of CT Findings: NO ACUTE INTRACRANIAL PATHOLOGY. ED physician reviewed radiology report. - EKG 14:43 Cardiac Rate: NL - 84 bpm EKG Rhythm: Sinus Rhythm EKG Comparison: No Significant Change - as compared to 06/01/18 Summary of EKG Findings: LAD, minimal ST elevations in anterior leads Re-Evaluation - Re-Evaluation First Eval Re-Evaluation Time: 15:15 Change: Unchanged Comment: Pt is medically cleared for a MHE. Course/Dx - Course Course Of Treatment: Pt is a 58 y/o male brought in by police who presents to the ED c/o overdose of DXM. Pt felt confused, had auditory hallucinations, and had anxiety, and states that his body felt like lead. A physical exam revealed Reports auditory hallucinations. A brain CT was negative. An EKG revealed NSR, LAD, minimal ST elevations in anterior leads. Bloodwork/UA obtained. In the course pt was given fluids. As per Dr. Villeda pt can be discharged with a final dx of anxiety. I discussed results with patient, and he reports feeling better. He is hemodynamically stable and safe for discharge. Strict return precautions given and he will otherwise follow up with his PCP. 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 He denied any hallucinations to the MH team. Discharge - Sign-Out/Discharge Documenting (check all that apply): Patient Departure - Discharge Patient Received Moderate/Deep Sedation with Procedure: No - Discharge Plan Condition: Stable Disposition: HOME Patient Education Materials: Polysubstance Abuse (ED), Anxiety (ED) Referrals: [facility] [Outside] Beatriz Tavarez MD [Primary Care Provider] - - Billing Disposition and Condition Condition: STABLE Disposition: Home - Attestation Statements Document Initiated by Kevinibe: Yes Documenting Scribe: Ave Camp Provider For Whom Scribe is Documenting (Include Credential): Leann Ortiz MD Scribe Attestation: Ave Zhang, scribed for Leann Ortiz MD on 08/22/18 at 0732. Scribe Documentation Reviewed: Yes Provider Attestation: The documentation as recorded by the Ave london accurately reflects the service I personally performed and the decisions made by me, Leann Ortiz MD Status of Scribe Document: Viewed
[2018-08-21 14:39] LABS: ALT 24 U/L (7-52); AST 18 U/L (13-39); Albumin/Globulin Ratio 0.7 (1-3); Alkaline Phosphatase 60 U/L (34-104); Anion Gap 5 mmol/L (2-11); BUN/Creatinine Ratio 11.9 (8-20); Blood Urea Nitrogen 14 mg/dL (6-24); CO2 Carbon Dioxide 29 mmol/L (22-32); Calcium 9.7 mg/dL (8.6-10.3); Chloride 101 mmol/L (101-111); EGFR Non-African American 63.6 (>60); Globulin 5.5 g/dL (2-4); Glucose 81 mg/dL (70-100); Potassium 4.3 mmol/L (3.5-5.0); Sodium 135 mmol/L (135-145); Total Protein 9.5 g/dL (6.4-8.9)
[2018-08-21 15:02] LABS: Acetaminophen < 15 mcg/mL; Alcohol < 10 mg/dL (<10); Salicylate < 2.50 mg/dL (<30)
[2018-08-21 15:17] LABS: TSH (Thyroid Stimulating Horm) 1.12 mcIU/mL (0.34-5.60)
[2018-08-21 15:30] LABS: Urine Appearance Clear; Urine Bilirubin Negative (Negative); Urine Blood Negative (Negative); Urine Color Yellow; Urine Glucose Negative (Negative); Urine Ketones Negative (Negative); Urine Nitrite Negative (Negative); Urine Protein Negative (Negative); Urine Urobilinogen Negative (Negative)
[2018-08-21 15:46] LABS: Urine Benzodiazepine Screen None Detected (None Detect); Urine Opiates Screen None Detected (None Detect)
[2018-08-21 16:14] LABS: Folate 19.58 ng/mL (>3.99)
[2018-08-21 17:18] VITALS: BP 140/95
== END | disposition home or self-care (01) ==
LOC: ED 13:49
DX: F41.9 Anxiety disorder, unspecified (principal); R94.31 Abnormal electrocardiogram [ECG] [EKG]; F10.20 Alcohol dependence, uncomplicated; F90.9 Attention-deficit hyperactivity disorder, unspecified type; F32.9 Major depressive disorder, single episode, unspecified; Z91.5 Personal history of self-harm; Z87.891 Personal history of nicotine dependence; Y90.0 Blood alcohol level of less than 20 mg/100 ml
CPT/HCPCS: 36415; 70450; 80053; 80307; 80320; 80329; 81003; 82140; 82607; 82746; 83605; 84443; 85025; 93005; 96360; 99285; G0480

== ENCOUNTER 2018-08-27 04:20 | Emergency (ER) | payer OTHER ==
--- NOTE | 2018-08-27 05:07 | ED ---
Complex/Multi-Sys Presentation - HPI Summary HPI Summary: This patient is a 58 year old M brought in by ambulance to [facility] with a chief complaint of eating a sandwich from [employer] with a very bittery, acid taste since 19:00, 08/26/18. Patient reports abdominal pain. Patient denies SI and HI. He is currently on trazodone. - History Of Current Complaint Chief Complaint: EDGeneral Time Seen by Provider: 08/27/18 04:30 Hx Obtained From: Patient Onset/Duration: Sudden Onset, Lasting Hours, Still Present Timing: Constant Severity Currently: Mild Severity Initially: Mild - Allergies/Home Medications Allergies/Adverse Reactions: Allergies Allergy/AdvReac Type Severity Reaction Status Date / Time No Known Allergies Allergy Verified 08/27/18 04:30 PMH/Surg Hx/FS Hx/Imm Hx Endocrine/Hematology History: Denies: Hx Anticoagulant Therapy Cardiovascular History: Reports: Other Cardiovascular Problems/Disorders - unspecific cardiac issues per H+P Respiratory History: Denies: Hx Asthma, Hx Chronic Bronchitis History: Denies: Hx Dialysis Musculoskeletal History: Reports: Hx Back Problems - spondylosis, Other Musculoskeletal History - hx of spinal stenosis Sensory History: Denies: Hx Contacts or Glasses Opthamlomology History: Denies: Hx Contacts or Glasses Neurological History: Reports: Hx Seizures - With ETOH detox Psychiatric History: Reports: Hx Anxiety, Hx Attention Deficit Hyperactivity Disorder, Hx Depression, Hx Inpatient Treatment, Hx Community Mental Health Tx, Hx Suicide Attempt - 1999, Hx of Violent Episodes Against Others, Hx Substance Abuse - alcohol Denies: Hx Eating Disorder, Hx Panic Disorder, Hx Post Traumatic Stress Disorder, Hx Schizophrenia, Hx Bipolar Disorder, Other Psychiatric Issues/ Disorders - Surgical History Surgery Procedure, Year, and Place: No surgical history - Immunization History Date of Tetanus Vaccine: unknown Date of Influenza Vaccine: NO Infectious Disease History: No Infectious Disease History: Reports: Hx Hepatitis Denies: Traveled Outside the [place] in Last 30 Days - Family History Known Family History: Positive: Other - Alcohol abuse Negative: Hypertension Family History: No FHx schizophrenia - Social History Alcohol Use: None Alcohol Amount: 7.5 years sober as of May 2018 Hx Substance Use: Yes Substance Use Type: Reports: Marijuana, Other Substance Use Comment - Amount & Last Used: cough syrup Hx Tobacco Use: Yes Smoking Status (MU): Former Smoker Type: Cigarettes Have You Smoked in the Last Year: No Review of Systems Positive: Abdominal Pain Negative: Other - SI and HI All Other Systems Reviewed And Are Negative: Yes Physical Exam - Summary Physical Exam Summary: VITAL SIGNS: Reviewed. GENERAL: Patient is a well-developed and nourished MALE who is lying comfortable in the stretcher. Patient is not in any acute respiratory distress. HEAD AND FACE: No signs of trauma. No ecchymosis, hematomas or skull depressions. No sinus tenderness. EYES: PERRLA, EOMI x 2, No injected conjunctiva, no nystagmus. EARS: Hearing grossly intact. Ear canals and tympanic membranes are within normal limits. MOUTH: Oropharynx within normal limits. NECK: Supple, trachea is midline, no adenopathy, no JVD, no carotid bruit, no c- spine tenderness, neck with full ROM CHEST: Symmetric, no tenderness at palpation LUNGS: Clear to auscultation bilaterally. No wheezing or crackles. CVS: Regular rate and rhythm, S1 and S2 present, no murmurs or gallops appreciated. ABDOMEN: Soft, non-tender. No signs of distention. No rebound no guarding, and no masses palpated. Bowel sounds are normal. EXTREMITIES: FROM in all major joints, no edema, no cyanosis or clubbing. NEURO: Alert and oriented x 3. No acute neurological deficits. Speech is normal and follows commands. SKIN: Dry and warm Triage Information Reviewed: Yes Vital Signs On Initial Exam: Initial Vitals Temp Pulse Resp BP Pulse Ox 99.2 F 82 15 144/98 97 08/27/18 04:26 08/27/18 04:26 08/27/18 04:26 08/27/18 04:26 08/27/18 04:26 Vital Signs Reviewed: Yes Diagnostics - Vital Signs Vital Signs Temp Pulse Resp BP Pulse Ox 08/27/18 04:26 99.2 F 82 15 144/98 97 - Laboratory Result Diagrams: 08/27/18 05:05 08/27/18 05:05 Lab Statement: Any lab studies that have been ordered have been reviewed, and results considered in the medical decision making process. Complex Multi-Symp Course/Dx Course Of Treatment: This patient is a 58 year old M brought in by ambulance to [facility] with a chief complaint of eating a sandwich from [employer] with a very bittery, acid taste since 19:00, 08/26/18. Pt sodium is 126 which is mildly lower. Pt d/c home and advised to restrict fluid to 1500 CC a day and repeat sodium with his doctor in 2-3 days. D/c with dx of hypernatremia, anxiety. - Diagnoses Provider Diagnoses: Hypernatremia, Anxiety Discharge - Sign-Out/Discharge Documenting (check all that apply): Patient Departure - D/C home Patient Received Moderate/Deep Sedation with Procedure: No - Discharge Plan Condition: Stable Disposition: HOME Patient Education Materials: Anxiety (ED), Hypernatremia (ED) Referrals: Beatriz Tavarez MD [Primary Care Provider] - 3 Days Additional Instructions: Restrict fluid intake to 1500 CC a day. Follow up with your primary care provider, Dr. Tavarez, in 2-3 days for a repeat sodium level. PLEASE RETURN TO THE ED IMMEDIATELY FOR WORSENING OR CONCERNING SYMPTOMS. - Attestation Statements Document Initiated by Scribe: Yes Documenting Scribe: Brando Lucero Provider For Whom Scribe is Documenting (Include Credential): Chelo Brown MD Scribe Attestation: Brando Zhang, scribed for Chelo Brown MD on 08/27/18 at 0602. Status of Scribe Document: Ready
[2018-08-27 05:20] LABS: ABS Eosinophils 0.1 10^3/ul (0-0.6); ABS Lymphocytes 1.2 10^3/ul (1.0-4.8); ABS Monocytes 0.7 10^3/ul (0-0.8); ABS Neutrophils 4.7 10^3/ul (1.5-7.7); Eosinophil % 1.5 %; Hematocrit 37 % (42-52); Hemoglobin 12.9 g/dL (14.0-18.0); Lymphocyte % 18.1 %; Mean Corpuscular HGB Conc 35 g/dL (31-36); Mean Corpuscular Hemoglobin 32 pg (27-31); Mean Corpuscular Volume 92 fL (80-94); Mean Platelet Volume 7.6 fL (7.4-10.4); Nucleated Red Blood Cells % 0.2; Platelet Count 221 10^3/uL (150-450); Red Blood Count 4.06 10^6 /uL (4.18-5.48); Red Cell Distribution Width 13 % (10.5-15); White Blood Count 6.8 10^3/uL (3.5-10.8)
[2018-08-27 05:40] LABS: ALT 27 U/L (7-52); AST 23 U/L (13-39); Albumin 3.6 g/dL (3.2-5.2); Albumin/Globulin Ratio 0.7 (1-3); Alkaline Phosphatase 76 U/L (34-104); Anion Gap 7 mmol/L (2-11); BUN/Creatinine Ratio 22.1 (8-20); Blood Urea Nitrogen 25 mg/dL (6-24); CO2 Carbon Dioxide 26 mmol/L (22-32); Calcium 9.6 mg/dL (8.6-10.3); Chloride 93 mmol/L (101-111); EGFR African American 80.9 (>60); EGFR Non-African American 66.9 (>60); Globulin 5.2 g/dL (2-4); Glucose 104 mg/dL (70-100); Potassium 3.9 mmol/L (3.5-5.0); Sodium 126 mmol/L (135-145); Total Protein 8.8 g/dL (6.4-8.9)
[2018-08-27 05:51] LABS: Alcohol < 10 mg/dL (<10)
--- NOTE | 2018-08-27 06:32 | ED ---
Progress - Progress Note Progress Note: Input incorrect diagnosis earlier. Dx was hyponatermia, not hypernatremia. Course/Dx - Course Course Of Treatment: This patient is a 58 year old M brought in by ambulance to [facility] with a chief complaint of eating a sandwich from [employer] with a very bittery, acid taste since 19:00, 08/26/18. Pt sodium is 126 which is mildly lower. Pt d/c home and advised to restrict fluid to 1500 CC a day and repeat sodium with his doctor in 2-3 days. D/c with dx of hyponatermia, anxiety. - Diagnoses Provider Diagnoses: Anxiety, Hyponatremia Discharge - Sign-Out/Discharge Documenting (check all that apply): Patient Departure - D/C home Patient Received Moderate/Deep Sedation with Procedure: No - Discharge Plan Condition: Stable Disposition: HOME Patient Education Materials: Hyponatremia (ED), Anxiety (ED) Referrals: Beatriz Tavarez MD [Primary Care Provider] - 3 Days Additional Instructions: Restrict fluid intake to 1500 CC a day. Follow up with your primary care provider, Dr. Tavarez, in 2-3 days for a repeat sodium level. PLEASE RETURN TO THE ED IMMEDIATELY FOR WORSENING OR CONCERNING SYMPTOMS. - Billing Disposition and Condition Condition: STABLE Disposition: Home - Attestation Statements Document Initiated by Scribe: Yes Documenting Scribe: Brando Lucero Provider For Whom Tj is Documenting (Include Credential): Chelo Brown MD Scribe Attestation: Brando Zhang, scribed for Chelo Brown MD on 08/27/18 at 2004. Scribe Documentation Reviewed: Yes Provider Attestation: The documentation as recorded by the Brando london accurately reflects the service I personally performed and the decisions made by , Chelo Brown MD Status of Scribe Document: Viewed
[2018-08-27 06:40] VITALS: BP 128/79
== END 2018-08-27 06:39 | disposition home or self-care (01) ==
LOC: ED 04:20
DX: E87.0 Hyperosmolality and hypernatremia (principal); F41.9 Anxiety disorder, unspecified; E87.1 Hypo-osmolality and hyponatremia; Z86.79 Personal history of other diseases of the circulatory system; Z87.891 Personal history of nicotine dependence
CPT/HCPCS: 36415; 80053; 80320; 85025; 99282; G0480

== ENCOUNTER 2018-08-27 08:15 | Emergency (ER) | payer OTHER ==
--- NOTE | 2018-08-27 08:46 | ED ---
Psychiatric Complaint - HPI Summary HPI Summary: This patient is a 58 year old male presenting to [facility] with a chief complaint of a psychiatric complaint. Patient states that he has been in and out of the ED consistently and is extremely anxious. Patient states that he really needs to talk to a psychiatrist. Patient states that he feels like people are poisoning his food and do him harm. The pain is rated 3/10 in severity. Symptoms aggravated by nothing. Symptoms alleviated by nothing. Patient denies SI, HI. - History Of Current Complaint Chief Complaint: EDPsychosocial Time Seen by Provider: 08/27/18 08:29 Hx Obtained From: Patient Onset/Duration: Still Present Timing: Constant Severity Currently: Moderate Character: Anxious Aggravating Factor(s): Nothing Alleviating Factor(s): Nothing Associated Signs And Symptoms: Positive: Paranoid Behavior Has Suicidal: Denies: Thoughts Has Homicidal: Denies: Thoughts - Allergies/Home Medications Allergies/Adverse Reactions: Allergies Allergy/AdvReac Type Severity Reaction Status Date / Time No Known Allergies Allergy Verified 08/27/18 08:22 PMH/Surg Hx/FS Hx/Imm Hx Previously Healthy: No Endocrine/Hematology History: Denies: Hx Anticoagulant Therapy Cardiovascular History: Reports: Other Cardiovascular Problems/Disorders - unspecific cardiac issues per H+P Respiratory History: Denies: Hx Asthma, Hx Chronic Bronchitis History: Denies: Hx Dialysis Musculoskeletal History: Reports: Hx Back Problems - spondylosis, Other Musculoskeletal History - hx of spinal stenosis Sensory History: Denies: Hx Contacts or Glasses Opthamlomology History: Denies: Hx Contacts or Glasses Neurological History: Reports: Hx Seizures - With ETOH detox Psychiatric History: Reports: Hx Anxiety, Hx Attention Deficit Hyperactivity Disorder, Hx Depression, Hx Inpatient Treatment, Hx Community Mental Health Tx, Hx Suicide Attempt - 1999, Hx of Violent Episodes Against Others, Hx Substance Abuse - alcohol Denies: Hx Eating Disorder, Hx Panic Disorder, Hx Post Traumatic Stress Disorder, Hx Schizophrenia, Hx Bipolar Disorder, Other Psychiatric Issues/ Disorders - Surgical History Surgery Procedure, Year, and Place: No surgical history - Immunization History Date of Tetanus Vaccine: unknown Date of Influenza Vaccine: NO Infectious Disease History: No Infectious Disease History: Reports: Hx Hepatitis Denies: Traveled Outside the [place] in Last 30 Days - Family History Known Family History: Positive: Other - Alcohol abuse Negative: Hypertension Family History: No FHx schizophrenia - Social History Alcohol Use: None Alcohol Amount: 7.5 years sober as of May 2018 Hx Substance Use: Yes Substance Use Type: Reports: Marijuana, Other Substance Use Comment - Amount & Last Used: cough syrup Hx Tobacco Use: Yes Smoking Status (MU): Former Smoker Type: Cigarettes Have You Smoked in the Last Year: No Review of Systems Negative: Fever Psychological: Other - Paranoid delusions Positive: Anxious, Other - Negative: SI, HI All Other Systems Reviewed And Are Negative: Yes Physical Exam - Summary Physical Exam Summary: Appearance: The patient is well-nourished in no acute distress and in no acute pain. Skin: The skin is warm and dry and skin color reflects adequate perfusion. HEENT: The head is normocephalic and atraumatic. The pupils are equal and reactive. The conjunctivae are clear and without drainage. Nares are patent and without drainage. Mouth reveals moist mucous membranes and the throat is without erythema and exudate. The external ears are intact. The ear canals are patent and without drainage. The tympanic membranes are intact. Neck: The neck is supple with full range of motion and non-tender. There are no carotid bruits. There is no neck vein distension. Respiratory: Chest is non-tender. Lungs are clear to auscultation and breath sounds are symmetrical and equal. Cardiovascular: Heart is regular rate and rhythm. There is no murmur or rub auscultated. There is no peripheral edema and pulses are symmetrical and equal. Abdomen: The abdomen is soft and non-tender. There are normal bowel sounds heard in all four quadrants and there is no organomegaly palpated. Musculoskeletal: There is no back tenderness noted. Extremities are non-tender with full range of motion. There is good capillary refill. There is no peripheral edema or calf tenderness elicited. Neurological: Patient is alert and oriented to person, place and time. The patient has symmetrical motor strength in all four extremities. Cranial nerves are grossly intact. Deep tendon reflexes are symmetrical and equal in all four extremities. Psychiatric: The patient has an anxious affect and exhibits paranoid delusions. Triage Information Reviewed: Yes Vital Signs On Initial Exam: Initial Vitals Temp Pulse Resp BP Pulse Ox 98.9 F 84 18 161/122 94 08/27/18 08:18 08/27/18 08:18 08/27/18 08:18 08/27/18 08:18 08/27/18 08:18 Vital Signs Reviewed: Yes Diagnostics - Vital Signs Vital Signs Temp Pulse Resp BP Pulse Ox 08/27/18 08:18 98.9 F 84 18 161/122 94 - Laboratory Result Diagrams: 08/27/18 08:52 08/27/18 08:52 Lab Statement: Any lab studies that have been ordered have been reviewed, and results considered in the medical decision making process. Course/Dx - Course Course Of Treatment: Mr. Lane was medically cleared and underwent a mental health eval. They felt that he was safe for discharge and recommended outpatient follow-up. - Differential Dx/Clinical Impression Provider Diagnosis: Depression, Psychosis - Physician Notifications Patient Is Medically Stable For: Psych Evaluation - at 1017 Discharge - Sign-Out/Discharge Documenting (check all that apply): Patient Departure Patient Received Moderate/Deep Sedation with Procedure: No - Discharge Plan Condition: Stable Disposition: HOME Patient Education Materials: Mood Disorders (ED) Referrals: Beatriz Tavarez MD [Primary Care Provider] - - Billing Disposition and Condition Condition: STABLE Disposition: Home - Attestation Statements Document Initiated by Scribe: Yes Documenting Scribe: Janette Mann Provider For Whom Scribe is Documenting (Include Credential): Pj Bryson MD Scribe Attestation: Janette Zhang, scribed for Pj Bryson MD on 08/27/18 at 1448. Scribe Documentation Reviewed: Yes Provider Attestation: The documentation as recorded by the Janette london accurately reflects the service I personally performed and the decisions made by me, Pj Bryson MD Status of Scribe Document: Viewed
[2018-08-27 09:01] LABS: ABS Eosinophils 0.1 10^3/ul (0-0.6); ABS Lymphocytes 1.2 10^3/ul (1.0-4.8); ABS Monocytes 0.9 10^3/ul (0-0.8); ABS Neutrophils 4.7 10^3/ul (1.5-7.7); Eosinophil % 1.9 %; Hematocrit 40 % (42-52); Hemoglobin 14.2 g/dL (14.0-18.0); Mean Corpuscular HGB Conc 35 g/dL (31-36); Mean Corpuscular Hemoglobin 32 pg (27-31); Mean Corpuscular Volume 91 fL (80-94); Mean Platelet Volume 7.8 fL (7.4-10.4); Platelet Count 230 10^3/uL (150-450); Red Blood Count 4.43 10^6 /uL (4.18-5.48); Red Cell Distribution Width 13 % (10.5-15); White Blood Count 6.9 10^3/uL (3.5-10.8)
[2018-08-27 09:09] LABS: Urine Appearance Clear; Urine Bilirubin Negative (Negative); Urine Blood Negative (Negative); Urine Color Yellow; Urine Glucose Negative (Negative); Urine Ketones Trace (Negative); Urine Nitrite Negative (Negative); Urine Protein Negative (Negative); Urine Specific Gravity 1.011 (1.010-1.030); Urine Urobilinogen Negative (Negative)
[2018-08-27 09:15] LABS: ALT 28 U/L (7-52); AST 24 U/L (13-39); Albumin 3.8 g/dL (3.2-5.2); Albumin/Globulin Ratio 0.7 (1-3); Alkaline Phosphatase 83 U/L (34-104); Anion Gap 9 mmol/L (2-11); BUN/Creatinine Ratio 22.3 (8-20); Blood Urea Nitrogen 25 mg/dL (6-24); CO2 Carbon Dioxide 25 mmol/L (22-32); Calcium 9.7 mg/dL (8.6-10.3); Chloride 93 mmol/L (101-111); EGFR African American 81.8 (>60); EGFR Non-African American 67.6 (>60); Globulin 5.5 g/dL (2-4); Glucose 113 mg/dL (70-100); Potassium 4.2 mmol/L (3.5-5.0); Sodium 127 mmol/L (135-145); Total Protein 9.3 g/dL (6.4-8.9)
[2018-08-27 09:32] LABS: Urine Benzodiazepine Screen None Detected (None Detect); Urine Opiates Screen None Detected (None Detect)
[2018-08-27 09:52] LABS: Alcohol < 10 mg/dL (<10); Salicylate < 2.50 mg/dL (<30)
[2018-08-27 10:06] LABS: TSH (Thyroid Stimulating Horm) 2.54 mcIU/mL (0.34-5.60)
[2018-08-27 10:07] LABS: Acetaminophen < 15 mcg/mL
[2018-08-27] MEDS ORDERED: NS 0.9% 1000 ML** 1,000 ML IV ONE (11:18)
[2018-08-27 12:55] VITALS: BP 116/73
== END 2018-08-27 12:50 | disposition home or self-care (01) ==
LOC: ED 08:15
DX: F32.9 Major depressive disorder, single episode, unspecified (principal); F29 Unspecified psychosis not due to a substance or known physiological condition; Z87.891 Personal history of nicotine dependence
CPT/HCPCS: 36415; 80053; 80307; 80320; 80329; 81003; 84443; 85025; 96374; 99284; G0480

== ENCOUNTER → 2018-10-11 14:41 | Emergency (ER) | payer OTHER ==
--- NOTE | 2018-10-11 16:45 | ED ---
Substance Abuse/Use - HPI Summary HPI Summary: Pt is a 58 y/o M presenting to the ED with a chief complaint of wondering if there is something in his blood that would explain the "pine tar" taste he had in his mouth after eating food that he prepared in his motel room today after using Dextromethorphan which he uses/abuses regularly. He states he took 480mg of Dextromethorphan today in order to try and experience psychedelic effects, and because he was bored, and that his food tasted funny after preparing it at the motel he is staying at. Pt not making much sense at bedside, saying sentences such as The feeling how much I take, how long it takes to affect me, I ate first, it hit me a lot sooner than it should have, and the feeling was way , way beyond what I would feel from the dosage I took, and There might be other, somebody might have put something in the food. After much clarification , the patient thinks that his food is being drugged and would like to have a blood test done. Pt became very frustrated and agitated with me as I tried to clarify what he was seeking from his emergency room visit. When asked about the dextromethorphan he said he purchased it yesterday with the intent to take it, that he took an amount he usually takes. He does not seek any help to stop abusing the dextromethorphan. He is not suicidal or homicidal, and he does not want a mental health evaluation. Pt has been in the ED for similar complaints. He denies chest pain, SOB, abd pain, N/V, and fevers. Home Medications Medication Instructions Recorded Confirmed Type traZODone TAB* [Desyrel TAB*] 150 mg PO BEDTIME PRN 10/18/17 10/11/18 History Multivitamins/Minerals TAB* 1 tab PO DAILY 08/21/18 10/11/18 History [Theragran/minerals TAB*] - History Of Current Complaint Chief Complaint: EDPsychosocial Stated Complaint: PT REFUSED TO STATE REASON FOR VISIT Time Seen by Provider: 10/11/18 16:19 Hx Obtained From: Patient, Medical Records - prior visit to ED Hx From Patient Unobtainable Due To: Other - not unobtainable, but pt's sentences are disjointed and vague Onset/Duration of Drug/ETOH Abuse: Hours Ingestion History: Type/Name Of Drug - Dextromethorphan, Amount Ingested - 480mg States Increased Use Since: denies increased use, his typical amount Overdose Characteristics: Oral Timing Of Abuse: Binge Use Severity Initially: Moderate Severity Currently: Moderate Character: Anxious, Frustrated, Other - agitated Aggravating Factor(s): Nothing Alleviating Factor(s): Nothing Associated Signs And Symptoms: Paranoid Behavior, Intentional Ingestion - to feel the psychedelic effects Related Hx: Drug/Alcohol Last Used @ - this am, Possible Multi Drug Ingestion - denies, Prior Drug Abuse Counseling/Admission - Allergies/Home Medications Allergies/Adverse Reactions: Allergies Allergy/AdvReac Type Severity Reaction Status Date / Time No Known Allergies Allergy Verified 10/11/18 16:12 PMH/Surg Hx/FS Hx/Imm Hx Previously Healthy: No Endocrine/Hematology History: Denies: Hx Anticoagulant Therapy Respiratory History: Denies: Hx Asthma, Hx Chronic Bronchitis History: Denies: Hx Dialysis Musculoskeletal History: Reports: Hx Back Problems - spondylosis, Other Musculoskeletal History - hx of spinal stenosis Sensory History: Denies: Hx Contacts or Glasses Opthamlomology History: Denies: Hx Contacts or Glasses Neurological History: Reports: Hx Seizures - With ETOH detox Psychiatric History: Reports: Hx Anxiety, Hx Attention Deficit Hyperactivity Disorder, Hx Depression, Hx Inpatient Treatment, Hx Community Mental Health Tx, Hx Suicide Attempt - 1999, Hx of Violent Episodes Against Others, Hx Substance Abuse - alcohol, dextromethorphan Denies: Hx Eating Disorder, Hx Panic Disorder, Hx Post Traumatic Stress Disorder, Hx Schizophrenia, Hx Bipolar Disorder, Other Psychiatric Issues/ Disorders - Surgical History Surgical History: None Surgery Procedure, Year, and Place: No surgical history - Immunization History Date of Tetanus Vaccine: unknown Date of Influenza Vaccine: NO Infectious Disease History: Yes Infectious Disease History: Reports: Hx Hepatitis Denies: Traveled Outside the [place] in Last 30 Days - Family History Known Family History: Positive: Other - Alcohol abuse Negative: Hypertension Family History: No FHx schizophrenia - Social History Lives: Alone - in a motel Alcohol Use: None Alcohol Amount: 7.5 years sober as of May 2018 Hx Substance Use: Yes Substance Use Type: Reports: Marijuana, Other Substance Use Comment - Amount & Last Used: cough syrup, dextromethorphan Hx Tobacco Use: Yes Smoking Status (MU): Former Smoker Type: Cigarettes Have You Smoked in the Last Year: No Review of Systems Negative: Fever Negative: Chest Pain Negative: Shortness Of Breath Negative: Abdominal Pain, Vomiting, Nausea Positive: no symptoms reported Musculoskeletal: Negative Skin: Negative Neurological: Negative Positive: Anxious All Other Systems Reviewed And Are Negative: Yes Physical Exam - Summary Physical Exam Summary: Appearance: Well-appearing, no pain distress, well-nourished Skin: Warm, color reflects adequate perfusion, dry Head: Normal Head/Face inspection, atraumatic Eyes: Conjunctiva clear, pupils midpoint, EOMI, no nystagmus ENT: Dentures for uppers, pharynx normal Neck: Supple, no nodes, no JVD Respiratory: Lungs clear, normal breath sounds, no respiratory distress Cardio: RRR, No murmur, pulses normal, brisk capillary refill Abdomen: Soft, nontender Bowel sounds: Present Musculoskeletal: Strength Intact/ROM intact, no calf tenderness, no edema. Psychological: Pt easily agitated, frustrated, has scattered thoughts Neuro: Alert, oriented x 3, muscle tone normal, no focal deficit Triage Information Reviewed: Yes Vital Signs On Initial Exam: Initial Vitals Temp Pulse Resp BP Pulse Ox 99.6 F 102 16 133/97 98 10/11/18 14:49 10/11/18 14:49 10/11/18 14:49 10/11/18 14:49 10/11/18 14:49 Vital Signs Reviewed: Yes Diagnostics - Vital Signs Vital Signs Temp Pulse Resp BP Pulse Ox 10/11/18 16:11 98.4 F 89 16 142/100 96 10/11/18 14:49 99.6 F 102 16 133/97 98 - Laboratory Result Diagrams: 10/11/18 16:38 10/11/18 16:38 Lab Statement: Any lab studies that have been ordered have been reviewed, and results considered in the medical decision making process. - EKG 1639 Cardiac Rate: NL - 89bpm EKG Rhythm: Sinus Rhythm ST Segment: Non-Specific Ectopy: None Summary of EKG Findings: EKG at 1639 shows NSR at 89bpm with nml AV/IV CT, nml QTc, and L axis deviation (-46). No acute changes. ED has reviewed and interpreted this EKG. Re-Evaluation - Re-Evaluation 1st re-eval Re-Evaluation Time: 19:40 Change: Improved Comment: Pt feels better and is ready for discharge. Is reassured that his bloodwork is unremarkable. Course/Dx - Course Course Of Treatment: Pt is a 58 y/o M presenting to the ED with a chief complaint of thinking there is something abnormal in his blood after eating tainted food that he prepared. He states he took 480mg Dextromethorphan today in order to try and experience psychedelic effects, and that his food that he prepared at the [facility] where he is staying, tastes funny, like pine tar, and he can't attribute it to the dextromethorphan because the 480mg is the usual dose that he takes. Pt not making much sense at bedside, saying sentences such as The feeling how much I take, how long it takes to affect me, I ate first, it hit me a lot sooner than it should have, and the feeling was way, way beyond what I would feel from the dosage I took, and There might be other, somebody might have put something in the food. After much clarification, the patient thinks that his food is being drugged and would like to have a blood test done. EKG at 1639 shows NSR at 89bpm with nml AV/IV CT, nml QTc, and L axis deviation (-46). No acute changes. ED MD has reviewed and interpreted this EKG. Pt's lab results are WNL, except for minor decreased Hct and sodium, and minimal elevation in creatinine, total protein. His Utox is negative, as are his alcohol, salicylate and acetaminophen levels. Pt will be d/c'ed with dx of dextromethorphan abuse. He is advised to DC the abuse and seek help for substance abuse. He is stable and agreeable with this plan. - Diagnoses Provider Diagnoses: Dextromethorphan use disorder, mild, abuse Discharge - Sign-Out/Discharge Documenting (check all that apply): Patient Departure - home to [facility] he stays at Patient Received Moderate/Deep Sedation with Procedure: No - Discharge Plan Condition: Stable Disposition: HOME Patient Education Materials: Polysubstance Abuse (ED) Referrals: Beatriz Tavarez MD [Primary Care Provider] - 2 Days Additional Instructions: There was no evidence of any abnormal substances in your blood. You need to discontinue the dextromethorphan. Return to the ER if you have any new or worsening symptoms. - Billing Disposition and Condition Condition: STABLE Disposition: Home - Attestation Statements Document Initiated by Tj: Yes Documenting Scribe: Estefany Chun Provider For Whom Tj is Documenting (Include Credential): Dr. Clementine Etienne MD. Scribe Attestation: Estefany Zhang, scribed for Dr. Clementine Etienne MD. on 10/12/18 at 2116. Scribe Documentation Reviewed: Yes Provider Attestation: The documentation as recorded by the Estefany london accurately reflects the service I personally performed and the decisions made by me, Dr. Clementine Etienne MD. Status of Scribe Document: Viewed
[2018-10-11 16:49] LABS: ABS Basophils 0.1 10^3/ul (0-0.2); ABS Lymphocytes 1.1 10^3/ul (1.0-4.8); ABS Monocytes 0.6 10^3/ul (0-0.8); ABS Neutrophils 4.7 10^3/ul (1.5-7.7); Eosinophil % 0.6 %; Hematocrit 39 % (42-52); Hemoglobin 13.7 g/dL (14.0-18.0); Lymphocyte % 17.3 %; Mean Corpuscular HGB Conc 35 g/dL (31-36); Mean Corpuscular Hemoglobin 32 pg (27-31); Mean Corpuscular Volume 92 fL (80-94); Mean Platelet Volume 7.8 fL (7.4-10.4); Platelet Count 222 10^3/uL (150-450); Red Cell Distribution Width 14 % (10-15); White Blood Count 6.5 10^3/uL (3.5-10.8)
[2018-10-11 17:10] LABS: ALT 29 U/L (7-52); AST 21 U/L (13-39); Albumin 3.8 g/dL (3.2-5.2); Albumin/Globulin Ratio 0.7 (1-3); Alkaline Phosphatase 53 U/L (34-104); Anion Gap 6 mmol/L (2-11); BUN/Creatinine Ratio 14.5 (8-20); Blood Urea Nitrogen 19 mg/dL (6-24); CO2 Carbon Dioxide 27 mmol/L (22-32); Calcium 9.8 mg/dL (8.6-10.3); Chloride 101 mmol/L (101-111); Creatine Kinase 156 U/L (10-223); EGFR African American 68.2 (>60); EGFR Non-African American 56.4 (>60); Globulin 5.6 g/dL (2-4); Glucose 81 mg/dL (70-100); Potassium 4.4 mmol/L (3.5-5.0); Sodium 134 mmol/L (135-145); Total Protein 9.4 g/dL (6.4-8.9)
[2018-10-11 17:37] LABS: Acetaminophen < 15 mcg/mL; Alcohol < 10 mg/dL (<10); Salicylate < 2.50 mg/dL (<30)
[2018-10-11 17:44] LABS: Urine Appearance Clear; Urine Bilirubin Negative (Negative); Urine Blood Negative (Negative); Urine Color Straw; Urine Glucose Negative (Negative); Urine Ketones Negative (Negative); Urine Nitrite Negative (Negative); Urine Protein Negative (Negative); Urine Specific Gravity 1.006 (1.010-1.030); Urine Urobilinogen Negative (Negative)
[2018-10-11 17:51] LABS: TSH (Thyroid Stimulating Horm) 1.08 mcIU/mL (0.34-5.60)
[2018-10-11 18:06] LABS: Urine Benzodiazepine Screen None Detected (None Detect); Urine Opiates Screen None Detected (None Detect)
[2018-10-11 20:05] VITALS: BP 126/80
== END | disposition home or self-care (01) ==
LOC: ED 14:41
DX: F19.10 Other psychoactive substance abuse, uncomplicated (principal); K75.9 Inflammatory liver disease, unspecified; Z87.891 Personal history of nicotine dependence; F90.9 Attention-deficit hyperactivity disorder, unspecified type; F41.9 Anxiety disorder, unspecified
CPT/HCPCS: 36415; 80053; 80307; 80320; 80329; 81003; 82550; 83605; 84443; 84484; 85025; 93005; 99282; G0480

== ENCOUNTER 2018-12-17 07:14 | Emergency (ER) | payer OTHER ==
--- NOTE | 2018-12-17 08:10 | ED ---
Abdominal Pain/Male - HPI Summary HPI Summary: This pt is a 58 Y/O M brought to [facility] from EMS for abdominal bloating due to drinking acidic water that occurred a couple hours [employer]. He states that he was getting ready this morning and drank acidic water, which is causing his CC. He states that he felt fine this morning and filled his water bottle in the water fountain at the lobby in a motel. He states that the water tasted heavy, burnt, and funny. He states that he felt hot and heaviness in his shoulders. He denies any fever, CP, SOB, N/V, abdominal pains, and headaches. He has no alleviating factors. He states that he recently had a biopsy and found that his body makes too many proteins due to melanoma or lymphoma. He has a PMHx of substance abuse, psychiatric disorders, and paranoia. He states that there is something weird going on in that hotel. He states that he would like a blood test. He states that he doesnt use any drugs. - History of Current Complaint Chief Complaint: EDGeneral Stated Complaint: GENERAL PAIN PER EMS Time Seen by Provider: 12/17/18 07:18 Hx Obtained From: Patient Onset/Duration: Sudden Onset, Lasting Hours, Still Present Timing: Constant Severity Currently: None Pain Intensity: 0 Pain Scale Used: 0-10 Numeric Aggravating Factor(s): Other: - water from a water fountain at a motel Alleviating Factor(s): Nothing Associated Signs And Symptoms: Positive: Other - heat flashes, heaviness in shoulders. Negative: Fever, Chest Pain, Nausea, Vomiting - Allergies/Home Medications Allergies/Adverse Reactions: Allergies Allergy/AdvReac Type Severity Reaction Status Date / Time No Known Allergies Allergy Verified 12/17/18 07:34 PMH/Surg Hx/FS Hx/Imm Hx Previously Healthy: Yes Endocrine/Hematology History: Denies: Hx Anticoagulant Therapy Cardiovascular History: Reports: Other Cardiovascular Problems/Disorders - unspecific cardiac issues per H+P Respiratory History: Denies: Hx Asthma, Hx Chronic Bronchitis History: Denies: Hx Dialysis Musculoskeletal History: Reports: Hx Back Problems - spondylosis, Other Musculoskeletal History - hx of spinal stenosis Sensory History: Denies: Hx Contacts or Glasses Opthamlomology History: Denies: Hx Contacts or Glasses Neurological History: Reports: Hx Seizures - With ETOH detox Psychiatric History: Reports: Hx Anxiety, Hx Attention Deficit Hyperactivity Disorder, Hx Depression, Hx Inpatient Treatment, Hx Community Mental Health Tx, Hx Suicide Attempt - 1999, Hx of Violent Episodes Against Others, Hx Substance Abuse - alcohol, dextromethorphan Denies: Hx Eating Disorder, Hx Panic Disorder, Hx Post Traumatic Stress Disorder, Hx Schizophrenia, Hx Bipolar Disorder, Other Psychiatric Issues/ Disorders - Surgical History Surgery Procedure, Year, and Place: No surgical history - Immunization History Date of Tetanus Vaccine: unknown Date of Influenza Vaccine: NO Infectious Disease History: No Infectious Disease History: Reports: Hx Hepatitis Denies: Traveled Outside the [place] in Last 30 Days - Family History Known Family History: Positive: Other - Alcohol abuse Negative: Hypertension Family History: No FHx schizophrenia - Social History Lives: Alone Alcohol Use: None Alcohol Amount: 7.5 years sober as of May 2018 Hx Substance Use: Yes Substance Use Type: Reports: Marijuana, Other Substance Use Comment - Amount & Last Used: cough syrup, dextromethorphan Hx Tobacco Use: Yes Smoking Status (MU): Former Smoker Type: Cigarettes Have You Smoked in the Last Year: No Review of Systems Positive: Other - Hot flashes . Negative: Fever Negative: Chest Pain Negative: Shortness Of Breath Negative: Abdominal Pain, Vomiting, Nausea Positive: Other - heaviness in shoudlers Negative: Headache All Other Systems Reviewed And Are Negative: Yes Physical Exam - Summary Physical Exam Summary: Appearance: The patient is well-nourished in no acute distress and in no acute pain. Skin: The skin is warm and dry and skin color reflects adequate perfusion. HEENT: The head is normocephalic and atraumatic. The pupils are equal and reactive. The conjunctivae are clear and without drainage. Nares are patent and without drainage. Mouth reveals moist mucous membranes and the throat is without erythema and exudate. The external ears are intact. The ear canals are patent and without drainage. The tympanic membranes are intact. Neck: The neck is supple with full range of motion and non-tender. There are no carotid bruits. There is no neck vein distension. Respiratory: Chest is non-tender. Lungs are clear to auscultation and breath sounds are symmetrical and equal. Cardiovascular: Heart is regular rate and rhythm. There is no murmur or rub auscultated. There is no peripheral edema and pulses are symmetrical and equal. Abdomen: The abdomen is soft and non-tender. There are normal bowel sounds heard in all four quadrants and there is no organomegaly palpated. Musculoskeletal: There is no back tenderness noted. Extremities are non-tender with full range of motion. There is good capillary refill. There is no peripheral edema or calf tenderness elicited. Neurological: Patient is alert and oriented to person, place and time. The patient has symmetrical motor strength in all four extremities. Cranial nerves are grossly intact. Deep tendon reflexes are symmetrical and equal in all four extremities. Psychiatric: The patient has an angry affect and does not exhibit any anxiety or depression. Triage Information Reviewed: Yes Vital Signs On Initial Exam: Initial Vitals Temp Pulse Resp BP Pulse Ox 98.1 F 89 13 162/111 99 12/17/18 07:19 12/17/18 07:19 12/17/18 07:19 12/17/18 07:19 12/17/18 07:19 Vital Signs Reviewed: Yes Diagnostics - Vital Signs Vital Signs Temp Pulse Resp BP Pulse Ox 12/17/18 07:19 98.1 F 89 13 162/111 99 - Laboratory Result Diagrams: 12/17/18 08:18 12/17/18 08:18 Lab Statement: Any lab studies that have been ordered have been reviewed, and results considered in the medical decision making process. Re-Evaluation - Re-Evaluation First Eval Re-Evaluation Time: 10:52 Comment: Discussed results, and reported that pt is still waiting for UA. Second Eval Re-Evaluation Time: 12:04 Comment: Discussed plan of care with pt Abdominal Pain Male Course/Dx - Course Course Of Treatment: I tried to reassure Mr. Lane multiple times in conversation and by sending labs. He felt that I could do more, specifically that I should be testing the water that he brought. I tried several times to explain to him that this is not a forensic lab and that we do blood and urine testing. Also that there are many many compounds that can cause illness and that it is impossible for us to test for them all. He felt that I was treating him unfairly and I reassured him that I would treat everyone with the same complaint the exact same way. He was not satisfied - Diagnoses Provider Diagnoses: Abdominal pain Discharge ED - Sign-Out/Discharge Documenting (check all that apply): Patient Departure - Discharge Patient Received Moderate/Deep Sedation with Procedure: No - Discharge Plan Condition: Stable Disposition: HOME Patient Education Materials: Abdominal Pain (ED) Referrals: Beatriz Tavarez MD [Primary Care Provider] - 3 Days Additional Instructions: Follow up with Primary Care Physician in 2-3 days. RETURN TO THE ED FOR ANY NEW OR WORSENING SYMPTOMS. - Billing Disposition and Condition Condition: STABLE Disposition: Home - Attestation Statements Document Initiated by Scribe: Yes Documenting Scribe: Kinga Webb Provider For Whom Tj is Documenting (Include Credential): Pj Bryson MD Scribe Attestation: Ifeanyi Zhang Gayatri Prakash, scribed for Pj Bryson MD on 12/17/18 at 1254. Scribe Documentation Reviewed: Yes Provider Attestation: The documentation as recorded by the amyibmike, Kinga Webb accurately reflects the service I personally performed and the decisions made by , Pj Bryson MD Status of Scribe Document: Viewed
[2018-12-17 08:23] LABS: ABS Basophils 0.1 10^3/ul (0-0.2); ABS Eosinophils 0.1 10^3/ul (0-0.6); ABS Lymphocytes 0.9 10^3/ul (1.0-4.8); ABS Monocytes 0.5 10^3/ul (0-0.8); ABS Neutrophils 4.9 10^3/ul (1.5-7.7); Eosinophil % 0.9 %; Hematocrit 41 % (42-52); Hemoglobin 14.3 g/dL (14.0-18.0); Lymphocyte % 14.6 %; Mean Corpuscular HGB Conc 35 g/dL (31-36); Mean Corpuscular Hemoglobin 33 pg (27-31); Mean Corpuscular Volume 94 fL (80-94); Mean Platelet Volume 7.1 fL (7.4-10.4); Nucleated Red Blood Cells % 0.1; Platelet Count 212 10^3/uL (150-450); Red Blood Count 4.34 10^6 /uL (4.18-5.48); Red Cell Distribution Width 14 % (10-15); White Blood Count 6.4 10^3/uL (3.5-10.8)
[2018-12-17 09:38] LABS: Anion Gap 6 mmol/L (2-11); CO2 Carbon Dioxide 24 mmol/L (22-32); Calcium 9.5 mg/dL (8.6-10.3); Chloride 99 mmol/L (101-111); Potassium 4.2 mmol/L (3.5-5.0); Sodium 129 mmol/L (135-145)
[2018-12-17 09:44] LABS: ALT 34 U/L (7-52); AST 22 U/L (13-39); Albumin/Globulin Ratio 0.8 (1-3); Alkaline Phosphatase 65 U/L (34-104); Blood Urea Nitrogen 23 mg/dL (6-24); EGFR African American 79.3 (>60); EGFR Non-African American 65.5 (>60); Globulin 5.3 g/dL (2-4); Glucose 120 mg/dL (70-100); Total Protein 9.3 g/dL (6.4-8.9)
[2018-12-17 09:45] LABS: Alcohol < 10 mg/dL (<10)
[2018-12-17] MEDS ORDERED: Sucralfate TAB* 1 GM PO ONE (10:53)
[2018-12-17 11:49] LABS: Urine Benzodiazepine Screen None Detected (None Detect); Urine Opiates Screen None Detected (None Detect)
[2018-12-17 12:31] VITALS: BP 0/0
== END 2018-12-17 12:29 | disposition home or self-care (01) ==
LOC: ED 07:14
DX: R10.9 Unspecified abdominal pain (principal); Z87.891 Personal history of nicotine dependence; F41.9 Anxiety disorder, unspecified; F90.9 Attention-deficit hyperactivity disorder, unspecified type; M47.9 Spondylosis, unspecified; F32.9 Major depressive disorder, single episode, unspecified; Z79.899 Other long term (current) drug therapy
CPT/HCPCS: 36415; 80053; 80307; 80320; 85025; 99282; A9270-GY; G0480

== ENCOUNTER → 2019-01-24 15:00 | Emergency (ER) | payer OTHER | END | disposition home or self-care (01) | LOC: ED 15:00 | DX: R53.83 Other fatigue (principal); Z53.21 Procedure and treatment not carried out due to patient leaving prior to being seen by health care provider ==

== ENCOUNTER 2019-02-13 20:37 | Emergency (ER) | payer OTHER ==
--- OUTSIDE RECORDS SUMMARY | 2019-02-13 20:55 | XMS REPORT | Continuity of Care Document ---
:1960 External Reference #:[id number] Author Name Beatriz Tavarez M.D. Address [address] [facility] [place] [address] Care Team Providers Name Role Phone Beatriz Tavarez M.D. 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 Onset: 10/15/2014 Anxiety state Beatriz Tavarez M.D. Onset: 10/15/2014 Chronic type B viral hepatitis Beatriz Tavarez M.D. Onset: 11/26/2014 Spinal stenosis in cervical region Beatriz Tavarez M.D. Onset: 12/03/2014 Cannabis abuse Beatriz Tavarez M.D. Onset: 12/06/2016 Attention deficit hyperactivity disorderBeatriz M.D. Onset: 2016 predominantly inattentive type Chronic alcoholism in remission Beatriz Tavarez M.D. Onset: 01/06/2017 Essential hypertension Beatriz Tavarez M.D. 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 Onset: 07/06/2018 Verbal auditory hallucinations Beatriz Tavarez M.D. Onset: 07/10/2018 Localized, primary osteoarthritis Beatriz Tavarez M.D. Onset: 09/04/2018 Social History Type Date Description Comments Sex Unknown Tobacco Use Start: Unknown End: Former Cigarette Smoker Unknown ETOH Use Denies alcohol use ETOH Use Recovered alcoholic October 2010 Tobacco Use Start: Unknown End: Patient is a former Unknown smoker Recreational Drug Use Marijuana Recreational Drug Use Former Drug User stimulants, cough medication Smoking Status Reviewed: 09/04/18 Patient is a former smoker Seat Belt/Car Seat Always uses seat belt Allergies, Adverse Reactions, Alerts Description No Known Drug Allergies Medications Active Medications SIG Qnty Indications Ordering Provider Date Multivitamin Adult 1 by mouth 90tabs Beatriz Tavarez M.D. 08/15/2018 every day Tablets Trazodone HCL 1 tab by mouth 30tabs F41.9 Anusha Vanessa, 06/09/2017 150mg every night DETECTIVE HOMICIDE SQUAD Tablets Immunizations Description No Information Available Vital Signs Date Vital Result Comment 01/25/2019 11:11am BP Systolic 158 mmHg BP Diastolic 100 mmHg BP Systolic Recheck 130 mmHg BP Diastolic Recheck 84 mmHg Heart Rate 80 /min Body Temperature 97.9 F Height 67 inches 5'7" Weight 162.00 lb BMI (Body Mass Index) 25.4 kg/m2 10/12/2018 10:18am BP Systolic 106 mmHg BP Diastolic 64 mmHg Heart Rate 80 /min Body Temperature 98.6 F Respiratory Rate 16 /min Height 67 inches 5'7" Weight 153.00 lb BMI (Body Mass Index) 24.0 kg/m2 Results Test Date Facility Test Result H/L Range Note Laboratory test 01/25/2019 [facility] TSH <pending> 0.5-5.0 finding Free T4 <pending> 0.75-1.54 Laboratory test 01/05/2019 [facility] Point of Care 124 mg/dL High 70-100 1 finding Glucose Urine Drug SCR ED 12/17/2018 [facility] Urine Amphetamine None Detected None Detect & Pain Clinic Screen Urine Barbiturates Screen None Detected None Detect Urine Benzodiazepine Screen None Detected None Detect Urine Cannabinoids Screen None Detected None Detect Urine Cocaine Screen None Detected None Detect Urine Opiates Screen None Detected None Detect Urine Phencyclidine Screen None Detected None Detect 2 CBC Auto Diff 12/17/2018 [facility] White Blood Count 6.4 10^3/uL Normal 3.5- 10.8 Red Blood Count 4.34 10^6/uL Normal 4.18-5.48 Hemoglobin 14.3 g/dL Normal 14.0-18.0 Hematocrit 41 % Low 42-52 Mean Corpuscular Volume 94 fL Normal 80-94 Mean Corpuscular Hemoglobin 33 pg High 27-31 Mean Corpuscular HGB Conc 35 g/dL Normal 31-36 Red Cell Distribution Width 14 % Normal 10-15 Platelet Count 212 10^3/uL Normal 150-450 Mean Platelet Volume 7.1 fL Low 7.4-10.4 Abs Neutrophils 4.9 10^3/uL Normal 1.5-7.7 Abs Lymphocytes 0.9 10^3/uL Low 1.0-4.8 Abs Monocytes 0.5 10^3/uL Normal 0-0.8 Abs Eosinophils 0.1 10^3/uL Normal 0-0.6 Abs Basophils 0.1 10^3/uL Normal 0-0.2 Abs Nucleated RBC 0.0 10^3/uL Granulocyte % 75.6 % Lymphocyte % 14.6 % Monocyte % 8.0 % Eosinophil % 0.9 % Basophil % 0.9 % Nucleated Red Blood Cells % 0.1 Comp Metabolic Panel 12/17/2018 [facility] Sodium 129 mmol/L Low 135-145 Potassium 4.2 mmol/L Normal 3.5-5.0 Chloride 99 mmol/L Low 101-111 Co2 Carbon Dioxide 24 mmol/L Normal 22-32 Anion Gap 6 mmol/L Normal 2-11 Calcium 9.5 mg/dL Normal 8.6-10.3 Albumin 4.0 g/dL Normal 3.2-5.2 Total Bilirubin 0.30 mg/dL Normal 0.2-1.0 Glucose 120 mg/dL High 70-100 Blood Urea Nitrogen 23 mg/dL Normal 6-24 Creatinine 1.15 mg/dL Normal 0.67-1.17 BUN/Creatinine Ratio 20.0 Normal 8-20 Total Protein 9.3 g/dL High 6.4-8.9 Globulin 5.3 g/dL High 2-4 Albumin/Globulin Ratio 0.8 Low 1-3 Alkaline Phosphatase 65 U/L Normal 34-104 Alt 34 U/L Normal 7-52 Ast 22 U/L Normal 13-39 Egfr Non- 65.5 >60 Egfr 79.3 >60 3 Laboratory test 12/17/2018 [facility] Alcohol < 10 mg/dL Normal <10 finding CBC Auto Diff 12/07/2018 [facility] White Blood Count 5.3 10^3/uL Normal 3.5- 10.8 Red Blood Count 4.52 10^6/uL Normal 4.18-5.48 Hemoglobin 14.5 g/dL Normal 14.0-18.0 Hematocrit 43 % Normal 42-52 Mean Corpuscular Volume 94 fL Normal 80-94 Mean Corpuscular Hemoglobin 32 pg High 27-31 Mean Corpuscular HGB Conc 34 g/dL Normal 31-36 Red Cell Distribution Width 14 % Normal 10-15 Platelet Count 202 10^3/uL Normal 150-450 Mean Platelet Volume 7.2 fL Low 7.4-10.4 Abs Neutrophils 3.1 10^3/uL Normal 1.5-7.7 Abs Lymphocytes 1.2 10^3/uL Normal 1.0-4.8 Abs Monocytes 0.7 10^3/uL Normal 0-0.8 Abs Eosinophils 0.2 10^3/uL Normal 0-0.6 Abs Basophils 0.1 10^3/uL Normal 0-0.2 Abs Nucleated RBC 0.0 10^3/uL Granulocyte % 59.4 % Lymphocyte % 22.7 % Monocyte % 13.7 % Eosinophil % 3.2 % Basophil % 1.0 % Nucleated Red Blood Cells % 0.1 Bone Marrow Chromosomes 12/07/2018 [facility] BM Result Summary Normal BM Chromosome Specimen Bone Marrow BM Chromosome Source [facility] BM Referral Reason See Comment 4 BM Chromosome Method See Comment 5 BM Chromo Banding Method See Comment 6 BM Cromosome Results 46,XY[20] BM Chromosome Interpretation See Comment 7 Released By See Comment 8 Plasma Cell Profliferative 12/07/2018 [facility] Plasma Cell Dis Res Insufficient Disorder Summary Plasma Cell Prolif Specimen Bone Marrow Plasma Cell Prolif Dis Source [facility] Plasma Cell Referral Reason See Comment 9 Plasma Cell Prolif Dis Method See Comment 10 Plasma Cell Prolif Dis Results See Comment 11 Plasma Cell Dis Interpretation See Comment 12 Plasma Cell Dis Disclaimer See Comment 13 Plasma Cell Dis Released By See Comment 14 Leukemia/Lymphoma Phenot 12/07/2018 [facility] Path Interpretation 2-8 Marker TNP Path Interpret 9-15 Marker TNP Path Interpret > 16 Marker (SEE NOTE) 15 CBC Auto Diff 11/22/2018 [facility] White Blood Count 5.7 10^3/uL Normal 3.5- 10.8 Red Blood Count 4.23 10^6/uL Normal 4.18-5.48 Hemoglobin 14.0 g/dL Normal 14.0-18.0 Hematocrit 39 % Low 42-52 Mean Corpuscular Volume 93 fL Normal 80-94 Mean Corpuscular Hemoglobin 33 pg High 27-31 Mean Corpuscular HGB Conc 36 g/dL Normal 31-36 Red Cell Distribution Width 14 % Normal 10-15 Platelet Count 223 10^3/uL Normal 150-450 Mean Platelet Volume 7.2 fL Low 7.4-10.4 Abs Neutrophils 3.7 10^3/uL Normal 1.5-7.7 Abs Lymphocytes 1.2 10^3/uL Normal 1.0-4.8 Abs Monocytes 0.6 10^3/uL Normal 0-0.8 Abs Eosinophils 0.1 10^3/uL Normal 0-0.6 Abs Basophils 0.1 10^3/uL Normal 0-0.2 Abs Nucleated RBC 0.0 10^3/uL Granulocyte % 65.5 % Lymphocyte % 20.9 % Monocyte % 10.7 % Eosinophil % 2.0 % Basophil % 0.9 % Nucleated Red Blood Cells % 0.0 Comp Metabolic Panel 11/22/2018 [facility] Sodium 135 mmol/L Normal 135-145 Potassium 4.3 mmol/L Normal 3.5-5.0 Chloride 100 mmol/L Low 101-111 Co2 Carbon Dioxide 28 mmol/L Normal 22-32 Anion Gap 7 mmol/L Normal 2-11 Glucose 109 mg/dL High 70-100 Blood Urea Nitrogen 19 mg/dL Normal 6-24 Creatinine 1.11 mg/dL Normal 0.67-1.17 BUN/Creatinine Ratio 17.1 Normal 8-20 Calcium 9.9 mg/dL Normal 8.6-10.3 Total Protein 9.4 g/dL High 6.4-8.9 Albumin 3.9 g/dL Normal 3.2-5.2 Globulin 5.5 g/dL High 2-4 Albumin/Globulin Ratio 0.7 Low 1-3 Total Bilirubin 0.30 mg/dL Normal 0.2-1.0 Alkaline Phosphatase 57 U/L Normal 34-104 Alt 24 U/L Normal 7-52 Ast 17 U/L Normal 13-39 Egfr Non- 68.3 >60 Egfr 82.6 >60 16 Hepatitis C Antibody 11/22/2018 [facility] HCV Index 0.00 s/c Hepatitis C Antibody Negative Negative Gumlog/Lambda Free Light 11/22/2018 [facility] Gumlog Free Light 5.23 mg/dL Abnormal 17 Chains Ser Chain Lambda Free Light Chain 0.7040 mg/dL 18 Gumlog/Lambda Free Light Chain 7.43 Abnormal 19 Protein Electrophoresis 11/22/2018 [facility] Immunofixation See Comment 20 Total Protein(Pep) 9.1 g/dL Abnormal 6.3 - 7.9 Albumin 3.7 g/dL 3.4-4.7 Alpha-1 Globulin 0.3 g/dL 0.1-0.3 Alpha-2 Globulin 0.9 g/dL 0.6-1.0 Beta Globulin 0.8 g/dL 0.7-1.2 Gamma Globulin 3.5 g/dL Abnormal 0.6-1.6 Albumin/Globulin Ratio 0.69 M Khari 3.2 g/dL Impression See Comment 21 Laboratory test finding 10/11/2018 [facility] Creatine Kinase(CK) 156 U/L Normal 10-223 Troponin I 0.00 ng/mL <0.04 22 Acetaminophen < 15 g/mL 23 Alcohol < 10 mg/dL Normal <10 Salicylate < 2.50 mg/dL <30 TSH (Thyroid Stim Horm) 1.08 mcIU/mL Normal 0.34-5.60 Comp Metabolic Panel 10/11/2018 [facility] Sodium 134 mmol/L Low 135-145 Potassium 4.4 mmol/L Normal 3.5-5.0 Chloride 101 mmol/L Normal 101-111 Co2 Carbon Dioxide 27 mmol/L Normal 22-32 Anion Gap 6 mmol/L Normal 2-11 Glucose 81 mg/dL Normal 70-100 Blood Urea Nitrogen 19 mg/dL Normal 6-24 Creatinine 1.31 mg/dL High 0.67-1.17 BUN/Creatinine Ratio 14.5 Normal 8-20 Calcium 9.8 mg/dL Normal 8.6-10.3 Total Protein 9.4 g/dL High 6.4-8.9 Albumin 3.8 g/dL Normal 3.2-5.2 Globulin 5.6 g/dL High 2-4 Albumin/Globulin Ratio 0.7 Low 1-3 Total Bilirubin 0.40 mg/dL Normal 0.2-1.0 Alkaline Phosphatase 53 U/L Normal 34-104 Alt 29 U/L Normal 7-52 Ast 21 U/L Normal 13-39 Egfr Non- 56.4 >60 Egfr 68.2 >60 24 Urine Drug SCR ED 10/11/2018 [facility] Urine Amphetamine None Detected None Detect & Pain Clinic Screen Urine Barbiturates Screen None Detected None Detect Urine Benzodiazepine Screen None Detected None Detect Urine Cannabinoids Screen None Detected None Detect Urine Cocaine Screen None Detected None Detect Urine Opiates Screen None Detected None Detect Urine Phencyclidine Screen None Detected None Detect 25 Urinalysis Profile 10/11/2018 [facility] Urine Color Straw Urine Appearance Clear Urine Specific [place] 1.006 Low 1.010-1.030 Urine pH 6.0 Normal 5-9 Urine Urobilinogen Negative Negative Urine Ketones Negative Negative Urine Protein Negative Negative Urine Leukocytes Negative Negative Urine Blood Negative Negative Urine Nitrite Negative Negative Urine Bilirubin Negative Negative Urine Glucose Negative Negative Laboratory test 10/11/2018 [facility] Lactic Acid 0.7 mmol/L Normal 0.5-2.0 26 finding CBC Auto Diff 10/11/2018 [facility] White Blood Count 6.5 10^3/uL Normal 3.5- 10.8 Red Blood Count 4.30 10^6/uL Normal 4.18-5.48 Hemoglobin 13.7 g/dL Low 14.0-18.0 Hematocrit 39 % Low 42-52 Mean Corpuscular Volume 92 fL Normal 80-94 Mean Corpuscular Hemoglobin 32 pg High 27-31 Mean Corpuscular HGB Conc 35 g/dL Normal 31-36 Red Cell Distribution Width 14 % Normal 10-15 Platelet Count 222 10^3/uL Normal 150-450 Mean Platelet Volume 7.8 fL Normal 7.4-10.4 Abs Neutrophils 4.7 10^3/uL Normal 1.5-7.7 Abs Lymphocytes 1.1 10^3/uL Normal 1.0-4.8 Abs Monocytes 0.6 10^3/uL Normal 0-0.8 Abs Eosinophils 0.0 10^3/uL Normal 0-0.6 Abs Basophils 0.1 10^3/uL Normal 0-0.2 Abs Nucleated RBC 0.0 10^3/uL Granulocyte % 72.6 % Lymphocyte % 17.3 % Monocyte % 8.7 % Eosinophil % 0.6 % Basophil % 0.8 % Nucleated Red Blood Cells % 0.0 Laboratory test finding 08/27/2018 [facility] Alcohol < 10 mg/dL Normal <10 Comp Metabolic Panel 08/27/2018 [facility] Sodium 126 mmol/L Low 135-145 Potassium 3.9 mmol/L Normal 3.5-5.0 Chloride 93 mmol/L Low 101-111 Co2 Carbon Dioxide 26 mmol/L Normal 22-32 Anion Gap 7 mmol/L Normal 2-11 Glucose 104 mg/dL High 70-100 Blood Urea Nitrogen 25 mg/dL High 6-24 Creatinine 1.13 mg/dL Normal 0.67-1.17 BUN/Creatinine Ratio 22.1 High 8-20 Calcium 9.6 mg/dL Normal 8.6-10.3 Total Protein 8.8 g/dL Normal 6.4-8.9 Albumin 3.6 g/dL Normal 3.2-5.2 Globulin 5.2 g/dL High 2-4 Albumin/Globulin Ratio 0.7 Low 1-3 Total Bilirubin 0.40 mg/dL Normal 0.2-1.0 Alkaline Phosphatase 76 U/L Normal 34-104 Alt 27 U/L Normal 7-52 Ast 23 U/L Normal 13-39 Egfr Non- 66.9 >60 Egfr 80.9 >60 27 CBC Auto Diff 08/27/2018 [facility] White Blood Count 6.8 10^3/uL Normal 3.5- 10.8 Red Blood Count 4.06 10^6/uL Low 4.18-5.48 Hemoglobin 12.9 g/dL Low 14.0-18.0 Hematocrit 37 % Low 42-52 Mean Corpuscular Volume 92 fL Normal 80-94 Mean Corpuscular Hemoglobin 32 pg High 27-31 Mean Corpuscular HGB Conc 35 g/dL Normal 31-36 Red Cell Distribution Width 13 % Normal 10.5-15 Platelet Count 221 10^3/uL Normal 150-450 Mean Platelet Volume 7.6 fL Normal 7.4-10.4 Abs Neutrophils 4.7 10^3/uL Normal 1.5-7.7 Abs Lymphocytes 1.2 10^3/uL Normal 1.0-4.8 Abs Monocytes 0.7 10^3/uL Normal 0-0.8 Abs Eosinophils 0.1 10^3/uL Normal 0-0.6 Abs Basophils 0.0 10^3/uL Normal 0-0.2 Abs Nucleated RBC 0.0 10^3/uL Granulocyte % 69.0 % Lymphocyte % 18.1 % Monocyte % 10.9 % Eosinophil % 1.5 % Basophil % 0.5 % Nucleated Red Blood Cells % 0.2 Laboratory test finding 08/27/2018 [facility] Alcohol < 10 mg/dL Normal <10 Salicylate < 2.50 mg/dL <30 TSH (Thyroid Stim Horm) 2.54 mcIU/mL Normal 0.34-5.60 Acetaminophen < 15 g/mL 28 Comp Metabolic Panel 08/27/2018 [facility] Sodium 127 mmol/L Low 135-145 Potassium 4.2 mmol/L Normal 3.5-5.0 Chloride 93 mmol/L Low 101-111 Co2 Carbon Dioxide 25 mmol/L Normal 22-32 Anion Gap 9 mmol/L Normal 2-11 Glucose 113 mg/dL High 70-100 Blood Urea Nitrogen 25 mg/dL High 6-24 Creatinine 1.12 mg/dL Normal 0.67-1.17 BUN/Creatinine Ratio 22.3 High 8-20 Calcium 9.7 mg/dL Normal 8.6-10.3 Total Protein 9.3 g/dL High 6.4-8.9 Albumin 3.8 g/dL Normal 3.2-5.2 Globulin 5.5 g/dL High 2-4 Albumin/Globulin Ratio 0.7 Low 1-3 Total Bilirubin 0.60 mg/dL Normal 0.2-1.0 Alkaline Phosphatase 83 U/L Normal 34-104 Alt 28 U/L Normal 7-52 Ast 24 U/L Normal 13-39 Egfr Non- 67.6 >60 Egfr 81.8 >60 29 Urine Drug SCR ED 08/27/2018 [facility] Urine Amphetamine None Detected None Detect & Pain Clinic Screen Urine Barbiturates Screen None Detected None Detect Urine Benzodiazepine Screen None Detected None Detect Urine Cannabinoids Screen None Detected None Detect Urine Cocaine Screen None Detected None Detect Urine Opiates Screen None Detected None Detect Urine Phencyclidine Screen None Detected None Detect 30 CBC Auto Diff 08/27/2018 [facility] White Blood Count 6.9 10^3/uL Normal 3.5- 10.8 Red Blood Count 4.43 10^6/uL Normal 4.18-5.48 Hemoglobin 14.2 g/dL Normal 14.0-18.0 Hematocrit 40 % Low 42-52 Mean Corpuscular Volume 91 fL Normal 80-94 Mean Corpuscular Hemoglobin 32 pg High 27-31 Mean Corpuscular HGB Conc 35 g/dL Normal 31-36 Red Cell Distribution Width 13 % Normal 10.5-15 Platelet Count 230 10^3/uL Normal 150-450 Mean Platelet Volume 7.8 fL Normal 7.4-10.4 Abs Neutrophils 4.7 10^3/uL Normal 1.5-7.7 Abs Lymphocytes 1.2 10^3/uL Normal 1.0-4.8 Abs Monocytes 0.9 10^3/uL High 0-0.8 Abs Eosinophils 0.1 10^3/uL Normal 0-0.6 Abs Basophils 0.0 10^3/uL Normal 0-0.2 Abs Nucleated RBC 0.0 10^3/uL Granulocyte % 68.0 % Lymphocyte % 17.0 % Monocyte % 12.6 % Eosinophil % 1.9 % Basophil % 0.5 % Nucleated Red Blood Cells % 0.0 Urinalysis Profile 08/27/2018 [facility] Urine Color Yellow Urine Appearance Clear Urine Specific [place] 1.011 Normal 1.010-1.030 Urine pH 6.0 Normal 5-9 Urine Urobilinogen Negative Negative Urine Ketones Trace Abnormal Negative Urine Protein Negative Negative Urine Leukocytes Negative Negative Urine Blood Negative Negative Urine Nitrite Negative Negative Urine Bilirubin Negative Negative Urine Glucose Negative Negative Laboratory test finding 08/21/2018 [facility] Lactic Acid 1.1 mmol/L Normal 0.5- 2.0 31 Laboratory test finding 08/21/2018 [facility] Ammonia 40 mcmol/L Normal 16-53 Folic Acid (Folate) 19.58 ng/mL >3.99 Vitamin B12 587 pg/mL Normal 180-914 32 CBC Auto Diff 08/21/2018 [facility] White Blood Count 7.8 10^3/uL Normal 3.5- 10.8 Red Blood Count 4.37 10^6/uL Normal 4.18-5.48 Hemoglobin 14.2 g/dL Normal 14.0-18.0 Hematocrit 40 % Low 42-52 Mean Corpuscular Volume 92 fL Normal 80-94 Mean Corpuscular Hemoglobin 32 pg High 27-31 Mean Corpuscular HGB Conc 35 g/dL Normal 31-36 Red Cell Distribution Width 13 % Normal 10.5-15 Platelet Count 199 10^3/uL Normal 150-450 Mean Platelet Volume 7.3 fL Low 7.4-10.4 Abs Neutrophils 6.3 10^3/uL Normal 1.5-7.7 Abs Lymphocytes 0.7 10^3/uL Low 1.0-4.8 Abs Monocytes 0.7 10^3/uL Normal 0-0.8 Abs Eosinophils 0.0 10^3/uL Normal 0-0.6 Abs Basophils 0.0 10^3/uL Normal 0-0.2 Abs Nucleated RBC 0.0 10^3/uL Granulocyte % 81.0 % Lymphocyte % 9.5 % Monocyte % 8.5 % Eosinophil % 0.5 % Basophil % 0.5 % Nucleated Red Blood Cells % 0.1 Comp Metabolic Panel 08/21/2018 [facility] Sodium 135 mmol/L Normal 135-145 Potassium 4.3 mmol/L Normal 3.5-5.0 Chloride 101 mmol/L Normal 101-111 Co2 Carbon Dioxide 29 mmol/L Normal 22-32 Anion Gap 5 mmol/L Normal 2-11 Glucose 81 mg/dL Normal 70-100 Blood Urea Nitrogen 14 mg/dL Normal 6-24 Creatinine 1.18 mg/dL High 0.67-1.17 BUN/Creatinine Ratio 11.9 Normal 8-20 Calcium 9.7 mg/dL Normal 8.6-10.3 Total Protein 9.5 g/dL High 6.4-8.9 Albumin 4.0 g/dL Normal 3.2-5.2 Globulin 5.5 g/dL High 2-4 Albumin/Globulin Ratio 0.7 Low 1-3 Total Bilirubin 0.30 mg/dL Normal 0.2-1.0 Alkaline Phosphatase 60 U/L Normal 34-104 Alt 24 U/L Normal 7-52 Ast 18 U/L Normal 13-39 Egfr Non- 63.6 >60 Egfr 77.0 >60 33 Laboratory test finding 08/21/2018 [facility] Acetaminophen < 15 g/mL 34 Alcohol < 10 mg/dL Normal <10 Salicylate < 2.50 mg/dL <30 TSH (Thyroid Stim Horm) 1.12 mcIU/mL Normal 0.34-5.60 Urinalysis Profile 08/21/2018 [facility] Urine Color Yellow Urine Appearance Clear Urine Specific [place] 1.010 Normal 1.010-1.030 Urine pH 6.0 Normal 5-9 Urine Urobilinogen Negative Negative Urine Ketones Negative Negative Urine Protein Negative Negative Urine Leukocytes Negative Negative Urine Blood Negative Negative Urine Nitrite Negative Negative Urine Bilirubin Negative Negative Urine Glucose Negative Negative Urine Drug SCR ED 08/21/2018 [facility] Urine Amphetamine None Detected None Detect & Pain Clinic Screen Urine Barbiturates Screen None Detected None Detect Urine Benzodiazepine Screen None Detected None Detect Urine Cannabinoids Screen None Detected None Detect Urine Cocaine Screen None Detected None Detect Urine Opiates Screen None Detected None Detect Urine Phencyclidine Screen None Detected None Detect 35 1 Consumer Insight Manager: [id number] 2 The urine specimen was tested at the listed cutoffs: Drug class test level (ng/mL) Amphetamines 500 Barbiturates 200 Benzodiazepine metabolites 200 Cocaine metabolites 150 Cannabinoids 50 Opiates 300 Pcp 25 Specimen was received without chain of custody. Results should be used for medical purposes only. 3 Because ethnic data is not always [...] 5 Kidney failure <15 (or dialysis) 4 RESULT: D47.2 Monoclonal gammopathy 5 RESULT: Culture without mitogens 6 Band Resolution: <400 Stain Name Cells Analyzed Cells Karyograms Counted Prepared GTL 20 0 2 Total 20 0 2 Minaya to Stain Name: GTL=G-banding; QFQ=Q-banding; DAPI=DAPI-staining; CBL=C-banding; AGNOR=Silver-staining; NON=Non-banded The sum of Cells Analyzed and Cells Counted equals the total cells examined. 7 No clonal abnormality was apparent. Additional cytogenetic studies are reported separately. 8 RESULT: Maddie Boogie M.D. Test Performed by: [address] [id number] 9 RESULT: D47.2 Monoclonal gammopathy 10 Locus and probes [Strategy;#Nuclei;Class] 11q13(CCND1-XT),14q32(IGH-XT) [DFISH;50;ASR] 14q32(3'IGH,5'IGH) [BAP;50;LDT] Probe strategies include: DFISH=dual color, double fusion; BAP=break-apart probe; COPY#=region gain and loss. 11 RESULT: Insufficient plasma cells were observed. 12 An insufficient number of plasma cells was observed using the cytoplasmic immunoglobulin staining method. This result does not exclude the presence of a plasma cell proliferative disorder. Additional cytogenetic studies are reported separately. 13 Applicable to Analyte Specific Reagent (ASR) and Laboratory Developed Tests (LDT). This test was developed and its performance characteristics determined by [facility] in a manner consistent with CLIA requirements. It has not been cleared or approved by the U.S. Food and Drug Administration. This FISH test does not rule out other chromosome abnormalities. 14 RESULT: Fabrizio Vinson, Ph.D. Test Performed by: [place] [address] 15 FINAL DIAGNOSIS: Specimen Source: Bone marrow Flow cytometry immunophenotypic analysis: Involved by small population of CD5 negative kappa light chain restricted B cells (2.2% of WBCs, 12.2% of lymphocytes) and clonal (kappa light chain restricted) plasma cell population (less than 1% of WBCs). Interpretative data: Blasts: 0.86% Lymphocytes: 15.2% B-cells: 12.2% of lymphocytes (2.2% of WBCs) with predominant CD19 positive, CD20 positive, CD5 negative kappa light chain restricted immunophenotype T-cells/NK cells: No aberrant population detected. Plasma cells: Gumlog restricted clonal plasma cell population present , less than 1% of total of WBCs Markers tested: CD3, CD10, CD16, CD19, CD34, CD45, kappa surface light chains, lambda surface light chains, B-cell panel: CD5, CD11c, CD19, CD20, CD200, CD22, CD23, CD38, CD45, CD103 and kappa and lambda surface light chains. Plasma cell panel: CD19, CD38, CD45, CD138 and cytoplasmic kappa and lambda light chains. Viability Assessment: 7AAD. Quality Assessment: Acceptable Viability: Acceptable Viable lymphocytes (7-AAD): 94% of gated Specimen received within validated guidelines. A Chan-Giemsa stained slide prepared from the flow cytometry specimen was examined for quality purposes. Electronically signed by: Fabrizio Taylor MD 12/11/18 1549 Technical component performed by: [facility] [address] [id number] Hog Cooler: Inder Lua II, MD, PhD. 16 Because ethnic data is not always [...] 5 Kidney failure <15 (or dialysis) 17 REFERENCE VALUE 0.3300-1.94 18 REFERENCE VALUE 0.5700-2.63 19 REFERENCE VALUE 0.2600-1.65 Test Performed by: [facility] [address] [place] [address] 20 Monoclonal IgM kappa. C/W Waldenstrom's macroglobulinemia. Suggest 24-hr urine Monoclonal Protein Studies. Test Performed by: [facility] [address] [place] [address] 21 M-spike in gamma fraction. See Immunofixation. Test Performed by: [facility] [address] [place] [address] 22 Troponin-I testing on Plasma Separator Tubes (PST) has a known false positive rate of 0.20-0.40%. All positive troponins reflex immediately to secondary confirmatory testing. Using the [employer] Access Immunoassay systems, the 99th percentile upper reference limit was demonstrated to be < 0.03 ng/mL. 23 Therapeutic concentration: <50 ug/mL Toxic concentration: >120 ug/mL 24 Because ethnic data is not always [...] 5 Kidney failure <15 (or dialysis) 25 The urine specimen was tested at the listed cutoffs: Drug class test level (ng/mL) Amphetamines 500 Barbiturates 200 Benzodiazepine metabolites 200 Cocaine metabolites 150 Cannabinoids 50 Opiates 300 Pcp 25 Specimen was received without chain of custody. Results should be used for medical purposes only. 26 [facility] Severe Sepsis and Septic Shock Management Bundle Measure requires all lactic acids initially measuring >2.0 mmol/L be repeated. 27 Because ethnic data is not always readily [...] 15-29 5 Kidney failure <15 (or dialysis) 28 Therapeutic concentration: <50 ug/mL Toxic concentration: >120 ug/mL 29 Because ethnic data is not always readily [...] 15-29 5 Kidney failure <15 (or dialysis) 30 The urine specimen was tested at the listed cutoffs: Drug class test level (ng/mL) Amphetamines 500 Barbiturates 200 Benzodiazepine metabolites 200 Cocaine metabolites 150 Cannabinoids 50 Opiates 300 Pcp 25 Specimen was received without chain of custody. Results should be used for medical purposes only. 31 [facility] Severe Sepsis and Septic Shock Management Bundle Measure requires all lactic acids initially measuring >2.0 mmol/L be repeated. 32 Normal Range 180 to 914 Indeterminate Range 145 to 180 Deficient Range <145 33 Because ethnic data is not always readily [...] 15-29 5 Kidney failure <15 (or dialysis) 34 Therapeutic concentration: <50 ug/mL Toxic concentration: >120 ug/mL 35 The urine specimen was tested at the listed cutoffs: Drug class test level (ng/mL) Amphetamines 500 Barbiturates 200 Benzodiazepine metabolites 200 Cocaine metabolites 150 Cannabinoids 50 Opiates 300 Pcp 25 Specimen was received without chain of custody. Results should be used for medical purposes only. 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 01/25/2019 F41.9 Anxiety disorder, unspecified Beatriz Tavarez M.D. 01/25/2019 R63.5 Abnormal weight gain Beatriz Tavarez M.D. 01/25/2019 I10 Essential (primary) hypertension Beatriz Tavarez M.D. 01/25/2019 Z12.11 Encounter for screening for malignant neoplasm Beatriz Tavarez M.D. 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 psychotic disor 10/12/2018 D47.2 Monoclonal gammopathy Beatriz Tavarez M.D. 10/12/2018 F41.9 Anxiety disorder, unspecified Beatriz Tavarez M.D. 09/04/2018 F41.9 Anxiety disorder, unspecified Beatriz Tavarez M.D. 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 psychotic disor 09/04/2018 F10.21 Alcohol dependence, in remission Beatriz Tavarez M.D. 09/04/2018 M17.12 Unilateral primary osteoarthritis, left knee Beatriz Tavarez M.D. 09/04/2018 D47.2 Monoclonal gammopathy Beatriz Tavarez M.D. 09/04/2018 Z00.01 Encounter for general adult medical examination Beatriz Tavarez M.D. with abnorma 09/04/2018 F90.0 Attention-deficit hyperactivity disorder, Beatriz Tavarez M.D. predominantly inat 09/04/2018 Z12.11 Encounter for screening for malignant neoplasm Beatriz Tavarez M.D. of colon Plan of Treatment Future Appointment(s):09/06/2019 9:00 am - Beatriz Tavarez M.D. at Main [facility]6401/2019 - Beatriz Tavarez M.D.D47.2 Monoclonal gammopathyComments:seeing dr dhillonF41.9 Anxiety disorder, lkuyijmfyukV28.5 Abnormal weight gainComments: check labsI10 Essential (primary) hypertensionComments:The patient will continue to monitor blood pressure and let me know the blood pressure results if there are readings persistently above 140/90. Goal blood pressure is less than 130/80. Recommend low salt/cardiac diet such as the Mediterranean diet and routine exercise at least 30 minutes a day.Z12.11 Encounter for screening for malignant neoplasm of colonComments:refer for colonoscopyAllComments:Medication Management Patient Understands medications he's taking? Yes No Are there Barriersto Adherence? Yes No Has the patient been asked about herbal supplements and therapies, and OTC meds? Yes No Functional Status Description No Information Available Mental Status Description No Information Available Referrals Refer to Reason for Referral Status Appt Date Elle Dhillon MD Consult and treat. Office note, labs and triage Scheduled 11/22/2018 faxed. [address] [phone]
[2019-02-13 21:34] LABS: ABS Eosinophils 0.1 10^3/ul (0-0.6); ABS Lymphocytes 1.1 10^3/ul (1.0-4.8); ABS Monocytes 0.8 10^3/ul (0-0.8); ABS Neutrophils 6.1 10^3/ul (1.5-7.7); Eosinophil % 1.5 %; Hematocrit 39 % (42-52); Hemoglobin 13.8 g/dL (14.0-18.0); Lymphocyte % 13.8 %; Mean Corpuscular HGB Conc 35 g/dL (31-36); Mean Corpuscular Hemoglobin 33 pg (27-31); Mean Corpuscular Volume 93 fL (80-94); Mean Platelet Volume 7.1 fL (7.4-10.4); Nucleated Red Blood Cells % 0.1; Platelet Count 236 10^3/uL (150-450); Red Blood Count 4.22 10^6 /uL (4.18-5.48); Red Cell Distribution Width 13 % (10-15); White Blood Count 8.1 10^3/uL (3.5-10.8)
[2019-02-13 21:48] LABS: ALT 27 U/L (7-52); AST 20 U/L (13-39); Albumin 3.7 g/dL (3.2-5.2); Albumin/Globulin Ratio 0.8 (1-3); Alkaline Phosphatase 71 U/L (34-104); Anion Gap 6 mmol/L (2-11); BUN/Creatinine Ratio 16.7 (8-20); Blood Urea Nitrogen 19 mg/dL (6-24); CO2 Carbon Dioxide 29 mmol/L (22-32); Calcium 9.3 mg/dL (8.6-10.3); Chloride 93 mmol/L (101-111); EGFR African American 80.1 (>60); EGFR Non-African American 66.2 (>60); Globulin 4.9 g/dL (2-4); Glucose 103 mg/dL (70-100); Potassium 4.3 mmol/L (3.5-5.0); Sodium 128 mmol/L (135-145); Total Protein 8.6 g/dL (6.4-8.9)
[2019-02-13 22:03] LABS: Urine Appearance Clear; Urine Bilirubin Negative (Negative); Urine Blood Negative (Negative); Urine Color Yellow; Urine Glucose Negative (Negative); Urine Ketones Negative (Negative); Urine Nitrite Negative (Negative); Urine Protein Negative (Negative); Urine Specific Gravity 1.012 (1.010-1.030); Urine Urobilinogen Negative (Negative)
[2019-02-13 22:16] LABS: Acetaminophen < 15 mcg/mL; Alcohol < 10 mg/dL (<10); Salicylate < 2.50 mg/dL (<30)
[2019-02-13 22:26] LABS: Urine Benzodiazepine Screen None Detected (None Detect); Urine Opiates Screen None Detected (None Detect)
[2019-02-13 22:30] LABS: TSH (Thyroid Stimulating Horm) 2.49 mcIU/mL (0.34-5.60)
--- NOTE | 2019-02-13 22:58 | ED ---
Psychiatric Complaint - HPI Summary HPI Summary: This pt is a 58 Y/O M presenting to [facility] with a CC of hearing voices that occurred [employer]. He states that he was yelling at the voices and got kicked out of his hotel room. When prompted what the voices were saying he denied hearing any that are telling him to hurt himself or someone else. He states that he isnt on any medications and has recently acquired a new counselor that he was supposed to start hearing today. He denies any N/V, SOB, CP, headaches, fevers, chills, SI, HI, and sore throats. He denies any alcohol drinking, substance abuse, and tobacco smoke. He states no aggravating or alleviating factors. He has a PMHx of prior psychiatric hospitalizations for depression and anxiety. - History Of Current Complaint Chief Complaint: EDMentalHealth Time Seen by Provider: 02/13/19 21:11 Hx Obtained From: Patient Onset/Duration: Sudden Onset Timing: Constant Severity Initially: Moderate Severity Currently: Moderate Aggravating Factor(s): Nothing, Other Alleviating Factor(s): Nothing Associated Signs And Symptoms: Positive: Hallucinating - States auditory hallucinations Related History: Positive For: Prior Psychiatric Issues - anxiety, depression Has Suicidal: Denies: Thoughts, With A Plan Has Homicidal: Denies: Thoughts, With A Plan - Allergies/Home Medications Allergies/Adverse Reactions: Allergies Allergy/AdvReac Type Severity Reaction Status Date / Time No Known Allergies Allergy Verified 02/13/19 20:42 Home Medications: Home Medications Cyanocobalamin TAB* [Vitamin B12 TAB*] 500 mcg PO DAILY 02/13/19 [History Confirmed 02/13/19] PMH/Surg Hx/FS Hx/Imm Hx Previously Healthy: Yes Endocrine/Hematology History: Denies: Hx Anticoagulant Therapy Cardiovascular History: Reports: Other Cardiovascular Problems/Disorders - unspecific cardiac issues per H+P Respiratory History: Denies: Hx Asthma, Hx Chronic Bronchitis History: Denies: Hx Dialysis Musculoskeletal History: Reports: Hx Back Problems - spondylosis, Other Musculoskeletal History - hx of spinal stenosis Sensory History: Denies: Hx Contacts or Glasses Opthamlomology History: Denies: Hx Contacts or Glasses Neurological History: Reports: Hx Seizures - With ETOH detox Psychiatric History: Reports: Hx Anxiety, Hx Attention Deficit Hyperactivity Disorder, Hx Depression, Hx Inpatient Treatment, Hx Community Mental Health Tx, Hx Suicide Attempt - 1999, Hx of Violent Episodes Against Others, Hx Substance Abuse - alcohol, dextromethorphan Denies: Hx Eating Disorder, Hx Panic Disorder, Hx Post Traumatic Stress Disorder, Hx Schizophrenia, Hx Bipolar Disorder, Other Psychiatric Issues/ Disorders - Surgical History Surgery Procedure, Year, and Place: No surgical history - Immunization History Date of Tetanus Vaccine: utd Date of Influenza Vaccine: none Infectious Disease History: No Infectious Disease History: Reports: Hx Hepatitis Denies: Traveled Outside the [place] in Last 30 Days - Family History Known Family History: Positive: Other - Alcohol abuse Negative: Hypertension Family History: No FHx schizophrenia - Social History Alcohol Use: None Alcohol Amount: 7.5 years sober as of May 2018 Hx Substance Use: Yes Substance Use Type: Reports: Other Substance Use Comment - Amount & Last Used: cough syrup, dextromethorphan Hx Tobacco Use: Yes Smoking Status (MU): Former Smoker Type: Cigarettes Have You Smoked in the Last Year: No Review of Systems - ROS Summary Review of Systems Summary: Home Medications Medication Instructions Recorded Confirmed Type traZODone TAB* [Desyrel TAB*] 100 mg PO BEDTIME PRN 10/18/17 02/13/19 History Multivitamins/Minerals TAB* 1 tab PO DAILY 08/21/18 02/13/19 History [Theragran/minerals TAB*] Cyanocobalamin TAB* [Vitamin B12 500 mcg PO DAILY 02/13/19 02/13/19 History TAB*] Negative: Fever, Chills Negative: Sore Throat Negative: Chest Pain Negative: Shortness Of Breath Negative: Vomiting, Nausea Negative: Headache Psychological: Other - Auditory hallucinations Positive: Other - DENIES: HI and SI All Other Systems Reviewed And Are Negative: Yes Physical Exam - Summary Physical Exam Summary: General: Well-developed, disheveled male No acute distress. HEENT: Normocephalic, Atraumatic. Eyes: Conjuctiva normal, PERRL. Ears: TMs within normal limits. Nares: (-) discharge, (-) erythema. Oropharynx: Clear, mucous membranes moist, (-) exudates. Neck: Soft, FROM, (-) lymphadenopathy, (-) thyromegaly, (-) JVD. Cardiovascular: Normal sinus rhythm, (-) murmur. Lungs: Clear to auscultation bilaterally (-) wheezes, (-) rales, (-) rhonchi. Abdomen: Soft, non-tender, non-distended, (-) organomegaly, normal bowel sounds. Back: (-) CVA tenderness Extremities: No edema. Skin: Warm, dry, (-) rash. Neuro: Alert and oriented x3, no focal deficits. Psychiatric: tangential thinking, flat affect Triage Information Reviewed: Yes Vital Signs On Initial Exam: Initial Vitals Temp Pulse Resp BP Pulse Ox 97.8 F 88 20 163/107 97 02/13/19 20:38 02/13/19 20:38 02/13/19 20:38 02/13/19 20:38 02/13/19 20:38 Vital Signs Reviewed: Yes Procedures - Sedation Patient Received Moderate/Deep Sedation with Procedure: No Diagnostics - Vital Signs Vital Signs Temp Pulse Resp BP Pulse Ox 02/13/19 20:38 97.8 F 88 20 163/107 97 - Laboratory Lab Results: Lab Results 02/13/19 02/13/19 02/13/19 Range/Units 21:21 21:21 21:45 WBC 8.1 (3.5-10.8) 10^3/uL RBC 4.22 (4.18-5.48) 10^6 /uL Hgb 13.8 L (14.0-18.0) g/dL Hct 39 L (42-52) % MCV 93 (80-94) fL MCH 33 H (27-31) pg MCHC 35 (31-36) g/dL RDW 13 (10-15) % Plt Count 236 (150-450) 10^3/uL MPV 7.1 L (7.4-10.4) fL Neut % (Auto) 75.1 % Lymph % (Auto) 13.8 % [place] % (Auto) 9.3 % Eos % (Auto) 1.5 % Baso % (Auto) 0.3 % Absolute Neuts (auto) 6.1 (1.5-7.7) 10^3/ul Absolute Lymphs (auto) 1.1 (1.0-4.8) 10^3/ul Absolute Monos (auto) 0.8 (0-0.8) 10^3/ul Absolute Eos (auto) 0.1 (0-0.6) 10^3/ul Absolute Basos (auto) 0.0 (0-0.2) 10^3/ul Absolute Nucleated RBC 0.0 10^3/ul Nucleated RBC % 0.1 Sodium 128 L (135-145) mmol/L Potassium 4.3 (3.5-5.0) mmol/L Chloride 93 L (101-111) mmol/L Carbon Dioxide 29 (22-32) mmol/L Anion Gap 6 (2-11) mmol/L BUN 19 (6-24) mg/dL Creatinine 1.14 (0.67-1.17) mg/dL Est GFR ( Amer) 80.1 (>60) Est GFR (Non-Af Amer) 66.2 (>60) BUN/Creatinine Ratio 16.7 (8-20) Glucose 103 H (70-100) mg/dL Calcium 9.3 (8.6-10.3) mg/dL Total Bilirubin 0.40 (0.2-1.0) mg/dL AST 20 (13-39) U/L ALT 27 (7-52) U/L Alkaline Phosphatase 71 (34-104) U/L Total Protein 8.6 (6.4-8.9) g/dL Albumin 3.7 (3.2-5.2) g/dL Globulin 4.9 H (2-4) g/dL Albumin/Globulin Ratio 0.8 L (1-3) TSH 2.49 (0.34-5.60) mcIU/mL Urine Color Yellow Urine Appearance Clear Urine pH 6.0 (5-9) Ur Specific [place] 1.012 (1.010-1.030) Urine Protein Negative (Negative) Urine Ketones Negative (Negative) Urine Blood Negative (Negative) Urine Nitrate Negative (Negative) Urine Bilirubin Negative (Negative) Urine Urobilinogen Negative (Negative) Ur Leukocyte Esterase Negative (Negative) Urine Glucose Negative (Negative) Salicylates < 2.50 (<30) mg/dL Urine Opiates Screen (None Detect) Acetaminophen < 15 mcg/mL Ur Barbiturates Screen (None Detect) Ur Phencyclidine Scrn (None Detect) Ur Amphetamines Screen (None Detect) U Benzodiazepines Scrn (None Detect) Urine Cocaine Screen (None Detect) U Cannabinoids Screen (None Detect) Serum Alcohol < 10 (<10) mg/dL 02/13/19 Range/Units 21:45 WBC (3.5-10.8) 10^3/uL RBC (4.18-5.48) 10^6 /uL Hgb (14.0-18.0) g/dL Hct (42-52) % MCV (80-94) fL MCH (27-31) pg MCHC (31-36) g/dL RDW (10-15) % Plt Count (150-450) 10^3/uL MPV (7.4-10.4) fL Neut % (Auto) % Lymph % (Auto) % [place] % (Auto) % Eos % (Auto) % Baso % (Auto) % Absolute Neuts (auto) (1.5-7.7) 10^3/ul Absolute Lymphs (auto) (1.0-4.8) 10^3/ul Absolute Monos (auto) (0-0.8) 10^3/ul Absolute Eos (auto) (0-0.6) 10^3/ul Absolute Basos (auto) (0-0.2) 10^3/ul Absolute Nucleated RBC 10^3/ul Nucleated RBC % Sodium (135-145) mmol/L Potassium (3.5-5.0) mmol/L Chloride (101-111) mmol/L Carbon Dioxide (22-32) mmol/L Anion Gap (2-11) mmol/L BUN (6-24) mg/dL Creatinine (0.67-1.17) mg/dL Est GFR ( Amer) (>60) Est GFR (Non-Af Amer) (>60) BUN/Creatinine Ratio (8-20) Glucose (70-100) mg/dL Calcium (8.6-10.3) mg/dL Total Bilirubin (0.2-1.0) mg/dL AST (13-39) U/L ALT (7-52) U/L Alkaline Phosphatase (34-104) U/L Total Protein (6.4-8.9) g/dL Albumin (3.2-5.2) g/dL Globulin (2-4) g/dL Albumin/Globulin Ratio (1-3) TSH (0.34-5.60) mcIU/mL Urine Color Urine Appearance Urine pH (5-9) Ur Specific [place] (1.010-1.030) Urine Protein (Negative) Urine Ketones (Negative) Urine Blood (Negative) Urine Nitrate (Negative) Urine Bilirubin (Negative) Urine Urobilinogen (Negative) Ur Leukocyte Esterase (Negative) Urine Glucose (Negative) Salicylates (<30) mg/dL Urine Opiates Screen None detected (None Detect) Acetaminophen mcg/mL Ur Barbiturates Screen None detected (None Detect) Ur Phencyclidine Scrn None detected (None Detect) Ur Amphetamines Screen None detected (None Detect) U Benzodiazepines Scrn None detected (None Detect) Urine Cocaine Screen None detected (None Detect) U Cannabinoids Screen None detected (None Detect) Serum Alcohol (<10) mg/dL Result Diagrams: 02/13/19 21:21 02/13/19 21:21 Lab Statement: Any lab studies that have been ordered have been reviewed, and results considered in the medical decision making process. Course/Dx - Course Course Of Treatment: 58-year-old male complains of hearing voices. Angry outburst at home. Tachycardic.of his hotel because of this. Patient evaluated by mental health. Patient admitted using dextromethorphan yesterday. Advice from psychiatry is to discharge to home. Follow up for outpatient care. - Differential Dx/Clinical Impression Provider Diagnosis: Dextromethorphan use disorder, severe, Substance induced mood disorder - Physician Notifications Time Discussed With Above Provider: 12:15 Instructed by Provider To: Other - Mental health meter reader reviewed case with Dr. Badillo, psychiatry. They recommend discharge. Patient Is Medically Stable For: Psych Evaluation - 2308 Discharge ED - Sign-Out/Discharge Documenting (check all that apply): Patient Departure - Discharge - Discharge Plan Condition: Fair Disposition: HOME Referrals: Beatriz Tavarez MD [Primary Care Provider] - - Billing Disposition and Condition Condition: FAIR Disposition: Home - Attestation Statements Document Initiated by Scribe: Yes Documenting Scribe: Barb Webb Provider For Whom Tj is Documenting (Include Credential): Zohreh Roman MD Scribe Attestation: Ifeanyi Zhang Tiffany Liu, scribed for Zohreh Roman MD on 02/14/19 at 0415. Scribe Documentation Reviewed: Yes Provider Attestation: The documentation as recorded by the Ifeanyi london Tiffany Liu accurately reflects the service I personally performed and the decisions made by me, Zohreh Roman MD Status of Scribe Document: Viewed
[2019-02-13] MEDS ORDERED: Lidocaine 2% VISCOUS* 15 ML UDC PO ONE (23:41)
[2019-02-14 09:30] VITALS: BP 00/0
== END 2019-02-14 09:25 | disposition home or self-care (01) ==
LOC: ED 20:37
DX: F15.94 Other stimulant use, unspecified with stimulant-induced mood disorder (principal); F41.9 Anxiety disorder, unspecified; F32.9 Major depressive disorder, single episode, unspecified; Z91.5 Personal history of self-harm; Z87.891 Personal history of nicotine dependence
CPT/HCPCS: 36415; 80053; 80307; 80320; 80329; 81003; 84443; 85025; 99284; G0480

== ENCOUNTER 2019-02-23 15:20 | Emergency (ER) | payer OTHER ==
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
[2019-02-23 15:55] LABS: ABS Basophils 0.1 10^3/ul (0-0.2); ABS Eosinophils 0.1 10^3/ul (0-0.6); ABS Lymphocytes 1.5 10^3/ul (1.0-4.8); ABS Monocytes 0.7 10^3/ul (0-0.8); ABS Neutrophils 6.8 10^3/ul (1.5-7.7); Eosinophil % 1.1 %; Hematocrit 44 % (42-52); Hemoglobin 15.4 g/dL (14.0-18.0); Lymphocyte % 16.1 %; Mean Corpuscular HGB Conc 35 g/dL (31-36); Mean Corpuscular Hemoglobin 33 pg (27-31); Mean Corpuscular Volume 94 fL (80-94); Mean Platelet Volume 7.6 fL (7.4-10.4); Nucleated Red Blood Cells % 0.1; Platelet Count 258 10^3/uL (150-450); Red Blood Count 4.69 10^6 /uL (4.18-5.48); Red Cell Distribution Width 14 % (10-15); White Blood Count 9.1 10^3/uL (3.5-10.8)
[2019-02-23 16:20] VITALS: BP 132/89
[2019-02-23 16:35] LABS: ALT 34 U/L (7-52); Albumin/Globulin Ratio 0.7 (1-3); Alkaline Phosphatase 71 U/L (34-104); BUN/Creatinine Ratio 15.7 (8-20); Blood Urea Nitrogen 21 mg/dL (6-24); CO2 Carbon Dioxide 24 mmol/L (22-32); Calcium 10.3 mg/dL (8.6-10.3); Chloride 104 mmol/L (101-111); EGFR African American 66.5 (>60); EGFR Non-African American 54.9 (>60); Globulin 5.6 g/dL (2-4); Glucose 117 mg/dL (70-100); Sodium 134 mmol/L (135-145); Total Protein 9.6 g/dL (6.4-8.9)
[2019-02-23 16:41] LABS: Acetaminophen < 15 mcg/mL; Alcohol < 10 mg/dL (<10); Salicylate < 2.50 mg/dL (<30)
[2019-02-23 17:03] LABS: Anion Gap 6 mmol/L (2-11)
== END 2019-02-23 16:17 | disposition home or self-care (01) ==
LOC: ED 15:20
DX: F99 Mental disorder, not otherwise specified (principal); F10.10 Alcohol abuse, uncomplicated; F19.10 Other psychoactive substance abuse, uncomplicated; F41.9 Anxiety disorder, unspecified; F90.9 Attention-deficit hyperactivity disorder, unspecified type; F32.9 Major depressive disorder, single episode, unspecified; Z87.891 Personal history of nicotine dependence
CPT/HCPCS: 36415; 80053; 80320; 80329; 85025; 93005; 99285; G0480

== ENCOUNTER 2019-02-24 22:45 | Emergency (ER) | payer OTHER ==
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
[2019-02-24 22:50] VITALS: BP 146/111
== END 2019-02-25 01:28 | disposition home or self-care (01) ==
LOC: ED 22:45
DX: S00.12XA Contusion of left eyelid and periocular area, initial encounter (principal); Y04.2XXA Assault by strike against or bumped into by another person, initial encounter; Y92.89 Other specified places as the place of occurrence of the external cause; F41.9 Anxiety disorder, unspecified; F90.9 Attention-deficit hyperactivity disorder, unspecified type; F32.9 Major depressive disorder, single episode, unspecified; Z87.891 Personal history of nicotine dependence
CPT/HCPCS: 70450; 70486; 99285

== ENCOUNTER 2019-03-14 18:02 | Emergency (ER) | payer OTHER ==
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
[2019-03-14 18:31] VITALS: BP 172/97
--- OUTSIDE RECORDS SUMMARY | 2019-03-20 14:15 | XMS REPORT ---
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, 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 Alcohol [id number] SNOMED-CT 2018-04 Active dependence, 0-25 uncomplicated Relevant diagnostic tests/laboratory data Narrative No Information Procedures Procedure Code CodeSystem Target Date of Status Service Device Device Device Name Site Procedure Delivery Code Name UID Location SNOMED-CT () 2019-02-[address], [id number] SNOMED-CT () 2019-02-[address], [id number] SNOMED-CT () 2019-02-[address], [id number] SNOMED-CT () 2019-01-[address], [id number] Encounters/Encounter Diagnoses Encounter Encounter Diagnosis Diagnosis Diagnosis Date of Service Name Code Code Name CodeSystem Diagnosis Delivery Location Non-Billable [address] SNOMED-CT 2019-03-06 [facility] , , Vital Signs No Information Social History Element Description Description Start End Code CodeSystem AdditionalInfo Date Date SexAssignedAtBirth Male 2-0 M AdministrativeGender 3-23 Hospital Discharge Instructions Reason For Referral Medical Equipment FDA Assessments
== END 2019-03-14 18:27 | disposition home or self-care (01) ==
LOC: ED 18:02
DX: F15.90 Other stimulant use, unspecified, uncomplicated (principal); F41.9 Anxiety disorder, unspecified; F90.9 Attention-deficit hyperactivity disorder, unspecified type; F32.9 Major depressive disorder, single episode, unspecified; Z87.891 Personal history of nicotine dependence
CPT/HCPCS: 99282

== ENCOUNTER 2019-03-30 15:02 | Emergency (ER) | payer OTHER ==
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
[2019-03-30] MEDS ORDERED: NS 0.9% 1000 ML** 1,000 ML IV ONE ×2 (15:36→19:46)
[2019-03-30] MEDS ORDERED: LORazepam INJ* 2 MG/ML 1 ML VIAL ONE (15:41)
[2019-03-30] MEDS ORDERED: diPHENhydraMINE IV* 50 MG/ML 1 ml VIAL (BENADRYL) ONE (15:44)
[2019-03-30] MEDS ORDERED: Haloperidol INJ IV/IM* 5 MG/ML AMP ONE (15:44)
[2019-03-30 17:18] LABS: ABS Lymphocytes 0.6 10^3/ul (1.0-4.8); ABS Monocytes 0.9 10^3/ul (0-0.8); ABS Neutrophils 10.5 10^3/ul (1.5-7.7); Eosinophil % 0.3 %; Hematocrit 40 % (42-52); Hemoglobin 13.8 g/dL (14.0-18.0); Lymphocyte % 4.9 %; Mean Corpuscular HGB Conc 35 g/dL (31-36); Mean Corpuscular Hemoglobin 32 pg (27-31); Mean Corpuscular Volume 93 fL (80-94); Mean Platelet Volume 7.5 fL (7.4-10.4); Platelet Count 228 10^3/uL (150-450); Red Blood Count 4.28 10^6 /uL (4.18-5.48); Red Cell Distribution Width 14 % (10-15)
[2019-03-30 17:46] LABS: ALT 34 U/L (7-52); AST 25 U/L (13-39); Albumin 3.5 g/dL (3.2-5.2); Albumin/Globulin Ratio 0.7 (1-3); Alkaline Phosphatase 82 U/L (34-104); BUN/Creatinine Ratio 17.4 (8-20); Blood Urea Nitrogen 23 mg/dL (6-24); CO2 Carbon Dioxide 27 mmol/L (22-32); Calcium 9.5 mg/dL (8.6-10.3); Chloride 97 mmol/L (101-111); Creatine Kinase 415 U/L (10-223); EGFR African American 67.6 (>60); EGFR Non-African American 55.9 (>60); Globulin 5.2 g/dL (2-4); Glucose 173 mg/dL (70-100); Sodium 130 mmol/L (135-145); Total Protein 8.7 g/dL (6.4-8.9)
[2019-03-30 17:48] LABS: Anion Gap 6 mmol/L (2-11); Potassium 5.2 mmol/L (3.5-5.0)
[2019-03-30 18:07] LABS: Acetaminophen < 15 mcg/mL; Alcohol < 10 mg/dL (<10); Salicylate < 2.50 mg/dL (<30)
[2019-03-30 18:20] LABS: TSH (Thyroid Stimulating Horm) 4.11 mcIU/mL (0.34-5.60)
[2019-03-30 21:11] LABS: Urine Appearance Clear; Urine Bilirubin Negative (Negative); Urine Blood Negative (Negative); Urine Color Yellow; Urine Glucose Negative (Negative); Urine Ketones Negative (Negative); Urine Nitrite Negative (Negative); Urine Protein Negative (Negative); Urine Specific Gravity 1.014 (1.010-1.030); Urine Urobilinogen Negative (Negative)
[2019-03-30 21:26] LABS: Urine Benzodiazepine Screen None Detected (None Detect); Urine Opiates Screen None Detected (None Detect)
[2019-03-30 22:00] VITALS: BP 122/71
== END 2019-03-30 21:59 | disposition home or self-care (01) ==
LOC: ED 15:02
DX: T48.3X1A Poisoning by antitussives, accidental (unintentional), initial encounter (principal); Y92.9 Unspecified place or not applicable; Z87.891 Personal history of nicotine dependence; F90.9 Attention-deficit hyperactivity disorder, unspecified type; F32.9 Major depressive disorder, single episode, unspecified
CPT/HCPCS: 36415; 80053; 80307; 80320; 80329; 81003; 82550; 83605; 84443; 85025; 93005; 96360; 96361; 99285; G0480; J1200; J1630; J2060

== ENCOUNTER 2019-04-02 23:38 | Emergency (ER) | payer OTHER ==
--- NOTE | 2019-04-03 00:01 | ED ---
Substance Abuse/Use - HPI Summary HPI Summary: 58 year old M brought in by EMS to [facility] complains of paranoid thoughts about people trying to poison him "ever since I moved here." Patient smoked cannabis that he purchased from a stranger minutes prior to arrival. States that he believes that the cannabis was laced with something because he immediately became confused after inhaling a small amount. No chest pain or shortness of breath. Not recently sick. The patient rates the pain 0/10 in severity. Symptoms aggravated by nothing. Symptoms alleviated by nothing. Medications reviewed. Allergies reviewed. - History Of Current Complaint Chief Complaint: EDSubstanceAbuse Stated Complaint: OD PER EMS Time Seen by Provider: 04/02/19 23:52 Hx Obtained From: Patient Aggravating Factor(s): Nothing Alleviating Factor(s): Nothing Associated Signs And Symptoms: Negative - chest pain, shortness of breath - Allergies/Home Medications Allergies/Adverse Reactions: Allergies Allergy/AdvReac Type Severity Reaction Status Date / Time No Known Allergies Allergy Verified 04/02/19 23:44 PMH/Surg Hx/FS Hx/Imm Hx Endocrine/Hematology History: Denies: Hx Anticoagulant Therapy, Hx Diabetes Cardiovascular History: Reports: Other Cardiovascular Problems/Disorders - unspecific cardiac issues per H+P Denies: Hx Hypercholesterolemia, Hx Hypertension Respiratory History: Denies: Hx Asthma, Hx Chronic Bronchitis History: Denies: Hx Dialysis Musculoskeletal History: Reports: Hx Back Problems - spondylosis, Other Musculoskeletal History - hx of spinal stenosis Sensory History: Denies: Hx Contacts or Glasses, Hx Legally Blind, Hx Deafness Opthamlomology History: Denies: Hx Contacts or Glasses, Hx Legally Blind Neurological History: Reports: Hx Seizures - With ETOH detox Psychiatric History: Reports: Hx Anxiety, Hx Attention Deficit Hyperactivity Disorder, Hx Depression, Hx Inpatient Treatment, Hx Community Mental Health Tx, Hx Suicide Attempt - 1999, Hx of Violent Episodes Against Others, Hx Substance Abuse - alcohol, dextromethorphan Denies: Hx Eating Disorder, Hx Panic Disorder, Hx Post Traumatic Stress Disorder, Hx Schizophrenia, Hx Bipolar Disorder, Other Psychiatric Issues/ Disorders - Surgical History Surgery Procedure, Year, and Place: No surgical history - Immunization History Date of Tetanus Vaccine: utd Date of Influenza Vaccine: none Infectious Disease History: No Infectious Disease History: Reports: Hx Hepatitis Denies: Traveled Outside the [place] in Last 30 Days - Family History Known Family History: Positive: Other - Alcohol abuse Negative: Hypertension Family History: No FHx schizophrenia - Social History Alcohol Use: None Alcohol Amount: 7.5 years sober as of May 2018 Hx Substance Use: Yes Substance Use Type: Reports: Other Substance Use Comment - Amount & Last Used: cough syrup, dextromethorphan Hx Tobacco Use: Yes Smoking Status (MU): Former Smoker Type: Cigarettes Have You Smoked in the Last Year: No Review of Systems - ROS Summary Review of Systems Summary: Home Medications Medication Instructions Recorded Confirmed Type traZODone TAB* [Desyrel TAB*] 100 mg PO BEDTIME PRN 10/18/17 03/30/19 History Multivitamins/Minerals TAB* 1 tab PO DAILY 08/21/18 03/30/19 History [Theragran/minerals TAB*] Negative: Chest Pain Negative: Shortness Of Breath Positive: Other - paranoid thoughts All Other Systems Reviewed And Are Negative: Yes Physical Exam - Summary Physical Exam Summary: General: Unkempt MALE. No acute distress. HEENT: Normocephalic, Atraumatic. Eyes: Conjuctiva normal, PERRL. Oropharynx: Clear, mucous membranes moist, (-) exudates. Neck: Soft, FROM, (-) lymphadenopathy, (-) thyromegaly, (-) JVD. Cardiovascular: Normal sinus rhythm, (-) murmur. Lungs: Clear to auscultation bilaterally (-) wheezes, (-) rales, (-) rhonchi. Abdomen: Soft, non-tender, non-distended, (-) organomegaly, normal bowel sounds. Back: (-) CVA tenderness Extremities: No edema. Skin: Warm, dry, (-) rash. Neuro: Alert and oriented x3, no focal deficits. Psychiatric: Patient is paranoid. He has some flight of ideas. He is mildly agitated. Triage Information Reviewed: Yes Vital Signs On Initial Exam: Initial Vitals Temp Pulse Resp BP Pulse Ox 98.5 F 113 18 155/99 95 04/02/19 23:39 04/02/19 23:39 04/02/19 23:39 04/02/19 23:39 04/02/19 23:39 Vital Signs Reviewed: Yes Procedures - Sedation Patient Received Moderate/Deep Sedation with Procedure: No Diagnostics - Vital Signs Vital Signs Temp Pulse Resp BP Pulse Ox 04/02/19 23:39 98.5 F 113 18 155/99 95 - Laboratory Result Diagrams: 04/03/19 00:02 04/03/19 00:02 Lab Statement: Any lab studies that have been ordered have been reviewed, and results considered in the medical decision making process. Re-Evaluation - Re-Evaluation First Eval Re-Evaluation Time: 01:45 Comment: I have discussed results with the patient and symptoms have resolved. Discussed symptoms that warrant immediate return to ED. Course/Dx - Course Course Of Treatment: 58-year-old male presents after having strange reaction to small puff of marijuana. He thinks the marijuana may have been laced. He states this is happened multiple times. Patient is cooperative. Workup essentially negative. Physical normal. Patient is alert and oriented 3. Discharged to home. Bus pass given. Follow up with PCP. Follow-up sooner for any worsening symptoms. - Diagnoses Provider Diagnoses: Marijuana use Discharge ED - Sign-Out/Discharge Documenting (check all that apply): Patient Departure - Discharge Plan Condition: Stable Disposition: HOME Patient Education Materials: Cannabis Abuse (ED) Referrals: Beatriz Tavarez MD [Primary Care Provider] - 3 Days Additional Instructions: Please follow up with your primary care physician within 3 days. Please return to Emergency Department for any new or worsening symptoms. - Billing Disposition and Condition Condition: STABLE Disposition: Home - Attestation Statements Document Initiated by Tj: Yes Documenting Scribe: Barb Merida Provider For Whom Tj is Documenting (Include Credential): Zohreh Roman MD Scribe Attestation: I, Barb Merida, scribed for Zohreh Roman MD on 04/03/19 at 0616. Scribe Documentation Reviewed: Yes Provider Attestation: The documentation as recorded by the Barb london accurately reflects the service I personally performed and the decisions made by me, Zohreh Roman MD Status of Scribe Document: Viewed
[2019-04-03 00:24] LABS: ALT 41 U/L (7-52); AST 32 U/L (13-39); Albumin 3.6 g/dL (3.2-5.2); Albumin/Globulin Ratio 0.8 (1-3); Alkaline Phosphatase 88 U/L (34-104); Anion Gap 6 mmol/L (2-11); BUN/Creatinine Ratio 14.3 (8-20); Blood Urea Nitrogen 16 mg/dL (6-24); CO2 Carbon Dioxide 27 mmol/L (22-32); Calcium 9.2 mg/dL (8.6-10.3); Chloride 96 mmol/L (101-111); EGFR African American 81.8 (>60); EGFR Non-African American 67.6 (>60); Globulin 4.6 g/dL (2-4); Glucose 119 mg/dL (70-100); Potassium 4.1 mmol/L (3.5-5.0); Sodium 129 mmol/L (135-145); Total Protein 8.2 g/dL (6.4-8.9)
[2019-04-03 00:33] LABS: ABS Eosinophils 0.1 10^3/ul (0-0.6); ABS Lymphocytes 1.3 10^3/ul (1.0-4.8); ABS Monocytes 0.7 10^3/ul (0-0.8); ABS Neutrophils 4.6 10^3/ul (1.5-7.7); Eosinophil % 1.4 %; Hematocrit 36 % (42-52); Hemoglobin 13.1 g/dL (14.0-18.0); Lymphocyte % 18.9 %; Mean Corpuscular HGB Conc 37 g/dL (31-36); Mean Corpuscular Hemoglobin 34 pg (27-31); Mean Corpuscular Volume 93 fL (80-94); Mean Platelet Volume 6.9 fL (7.4-10.4); Nucleated Red Blood Cells % 0.1; Platelet Count 234 10^3/uL (150-450); Red Blood Count 3.84 10^6 /uL (4.18-5.48); Red Cell Distribution Width 14 % (10-15); White Blood Count 6.7 10^3/uL (3.5-10.8)
[2019-04-03 00:48] LABS: Urine Appearance Clear; Urine Bilirubin Negative (Negative); Urine Blood Negative (Negative); Urine Color Straw; Urine Glucose Negative (Negative); Urine Ketones Negative (Negative); Urine Nitrite Negative (Negative); Urine Protein Negative (Negative); Urine Specific Gravity 1.008 (1.010-1.030); Urine Urobilinogen Negative (Negative)
[2019-04-03 00:50] LABS: Acetaminophen < 15 mcg/mL; Alcohol < 10 mg/dL (<10); Salicylate < 2.50 mg/dL (<30)
[2019-04-03 00:58] LABS: Urine Benzodiazepine Screen None Detected (None Detect); Urine Opiates Screen None Detected (None Detect)
[2019-04-03 01:04] LABS: TSH (Thyroid Stimulating Horm) 2.63 mcIU/mL (0.34-5.60)
[2019-04-03 01:58] VITALS: BP 129/79
== END 2019-04-03 01:50 | disposition home or self-care (01) ==
LOC: ED 23:38
DX: F12.90 Cannabis use, unspecified, uncomplicated (principal); F32.9 Major depressive disorder, single episode, unspecified; Z87.891 Personal history of nicotine dependence
CPT/HCPCS: 36415; 80053; 80307; 80320; 80329; 81003; 84443; 85025; 99282; G0480

== ENCOUNTER 2019-04-05 18:36 | Emergency (ER) | payer OTHER ==
--- NOTE | 2019-04-05 18:44 | ED ---
Psychiatric Complaint - HPI Summary HPI Summary: This patient is a 58 year old male presenting to [facility] with a chief complaint of delusions. He states he feels the water he was drinking, bottled and bought from [employer], was poisoned over the last couple days. He states after he drinks it he feels like he is going to . He states he feels a burning sensation on his lips and thinks he is going to . He came into the ED 6 days ago previously after smoking marijuana. Pt denies any fever, chills, erythema of eyes, sore throat, CP, SOB, cough, abdominal pain, N/V, dysuria, hematuria, myalgia, edema, rash, or dizziness. - History Of Current Complaint Hx Obtained From: Patient Onset/Duration: Lasting Days Related History: Positive For: Prior Psychiatric Issues - Allergies/Home Medications Allergies/Adverse Reactions: Allergies Allergy/AdvReac Type Severity Reaction Status Date / Time No Known Allergies Allergy Verified 04/02/19 23:44 PMH/Surg Hx/FS Hx/Imm Hx Endocrine/Hematology History: Denies: Hx Anticoagulant Therapy, Hx Diabetes Cardiovascular History: Reports: Other Cardiovascular Problems/Disorders - unspecific cardiac issues per H+P Denies: Hx Hypercholesterolemia, Hx Hypertension Respiratory History: Denies: Hx Asthma, Hx Chronic Bronchitis History: Denies: Hx Dialysis Musculoskeletal History: Reports: Hx Back Problems - spondylosis, Other Musculoskeletal History - hx of spinal stenosis Sensory History: Denies: Hx Contacts or Glasses, Hx Legally Blind, Hx Deafness Opthamlomology History: Denies: Hx Contacts or Glasses, Hx Legally Blind Neurological History: Reports: Hx Seizures - With ETOH detox Psychiatric History: Reports: Hx Anxiety, Hx Attention Deficit Hyperactivity Disorder, Hx Depression, Hx Inpatient Treatment, Hx Community Mental Health Tx, Hx Suicide Attempt - 1999, Hx of Violent Episodes Against Others, Hx Substance Abuse - alcohol, dextromethorphan Denies: Hx Eating Disorder, Hx Panic Disorder, Hx Post Traumatic Stress Disorder, Hx Schizophrenia, Hx Bipolar Disorder, Other Psychiatric Issues/ Disorders - Surgical History Surgery Procedure, Year, and Place: No surgical history - Immunization History Date of Tetanus Vaccine: utd Date of Influenza Vaccine: none Infectious Disease History: Reports: Hx Hepatitis - Family History Known Family History: Positive: Other - Alcohol abuse Negative: Hypertension Family History: No FHx schizophrenia - Social History Alcohol Use: None Alcohol Amount: 7.5 years sober as of May 2018 Hx Substance Use: Yes Substance Use Type: Reports: Other Substance Use Comment - Amount & Last Used: cough syrup, dextromethorphan Hx Tobacco Use: Yes Smoking Status (MU): Former Smoker Type: Cigarettes Have You Smoked in the Last Year: No Review of Systems Negative: Fever, Chills Negative: Erythema Negative: Sore Throat Negative: Chest Pain Negative: Shortness Of Breath, Cough Negative: Abdominal Pain, Vomiting, Nausea Negative: dysuria, hematuria Negative: Myalgia, Edema Negative: Rash Neurological: Other - Sensation of mouth burning, Neg: Dizziness Psychological: Other - Delusions, feeling like hes going to All Other Systems Reviewed And Are Negative: No Physical Exam - Summary Physical Exam Summary: Constitutional: Well-developed, Well-nourished, Alert. (-) Distressed Skin: Warm, Dry HENT: Normocephalic; Atraumatic Eyes: Conjunctiva normal Neck: Musculoskeletal ROM normal neck. (-) JVD, (-) Stridor, (-) Tracheal deviation Cardio: Rhythm regular, rate normal, Heart sounds normal; Intact distal pulses; Radial pulses are 2+ and symmetric. (-) Murmur Pulmonary/Chest wall: Effort normal. (-) Respiratory distress, (-) Wheezes, (-) Rales Abd: Soft, (-) tenderness, (-) Distension, (-) Guarding, (-) Rebound Musculoskeletal: (-) Edema Lymph: (-) Cervical adenopathy Neuro: Alert, Oriented x3 Psych: Mood and affect Normal Triage Information Reviewed: Yes Vital Signs Reviewed: Yes Procedures - Sedation Patient Received Moderate/Deep Sedation with Procedure: No Diagnostics - Laboratory Result Diagrams: 04/05/19 19:08 04/05/19 19:08 Lab Statement: Any lab studies that have been ordered have been reviewed, and results considered in the medical decision making process. Re-Evaluation - Re-Evaluation First Eval Re-Evaluation Time: 22:46 Comment: [id number] - copy operator discussed patient's case with Dr. Roman. Patient had come in to ED for MHE as he had been having paranoid thoughts. However, the patient is now stating that these paranoid thoughts have since resolved. Patient to be discharged to home with outpatient mental health follow-up. Course/Dx - Course Course Of Treatment: This patient is a 58 year old male presenting to [facility] with a chief complaint of delusions. The patient will be signed out to Dr. Roman at shift change 2200 pending MHE. - Differential Dx/Clinical Impression Provider Diagnosis: Paranoid Discharge ED - Sign-Out/Discharge Documenting (check all that apply): Sign-Out Patient Signing out patient TO: Zohreh Roman - At shift change 2200 pending MHE - Discharge Plan Condition: Stable Disposition: HOME Referrals: Beatriz Tavarez MD [Primary Care Provider] - - Billing Disposition and Condition Condition: STABLE Disposition: Home - Attestation Statements Document Initiated by Scribe: Yes Documenting Scribe: Sina Chin Provider For Whom Tj is Documenting (Include Credential): Sam Johnson MD Scribe Attestation: Sina Zhang scribed for Sam Johnson MD on 04/07/19 at 1032. Scribe Documentation Reviewed: Yes Provider Attestation: The documentation as recorded by the Sina london accurately reflects the service I personally performed and the decisions made by Sam palafox MD Status of Scribe Document: Viewed
[2019-04-05 19:30] LABS: ALT 35 U/L (7-52); AST 27 U/L (13-39); Albumin 3.7 g/dL (3.2-5.2); Albumin/Globulin Ratio 0.8 (1-3); Alkaline Phosphatase 78 U/L (34-104); Anion Gap 5 mmol/L (2-11); BUN/Creatinine Ratio 21.3 (8-20); Blood Urea Nitrogen 23 mg/dL (6-24); CO2 Carbon Dioxide 30 mmol/L (22-32); Calcium 9.4 mg/dL (8.6-10.3); Chloride 93 mmol/L (101-111); EGFR African American 85.3 (>60); EGFR Non-African American 70.5 (>60); Globulin 4.8 g/dL (2-4); Glucose 98 mg/dL (70-100); Sodium 128 mmol/L (135-145); Total Protein 8.5 g/dL (6.4-8.9)
[2019-04-05 19:42] LABS: ABS Eosinophils 0.1 10^3/ul (0-0.6); ABS Lymphocytes 1.1 10^3/ul (1.0-4.8); ABS Monocytes 0.8 10^3/ul (0-0.8); Eosinophil % 1.1 %; Hematocrit 37 % (42-52); Hemoglobin 13.2 g/dL (14.0-18.0); Lymphocyte % 15.6 %; Mean Corpuscular HGB Conc 36 g/dL (31-36); Mean Corpuscular Hemoglobin 33 pg (27-31); Mean Corpuscular Volume 92 fL (80-94); Mean Platelet Volume 7.4 fL (7.4-10.4); Platelet Count 271 10^3/uL (150-450); Red Blood Count 4.02 10^6 /uL (4.18-5.48); Red Cell Distribution Width 13 % (10-15)
[2019-04-05 20:01] LABS: Acetaminophen < 15 mcg/mL; Alcohol < 10 mg/dL (<10); Salicylate < 2.50 mg/dL (<30)
[2019-04-05 20:07] LABS: TSH (Thyroid Stimulating Horm) 2.22 mcIU/mL (0.34-5.60)
[2019-04-05 21:36] LABS: Urine Appearance Clear; Urine Bilirubin Negative (Negative); Urine Blood Negative (Negative); Urine Color Straw; Urine Glucose Negative (Negative); Urine Ketones Negative (Negative); Urine Nitrite Negative (Negative); Urine Protein Negative (Negative); Urine Specific Gravity 1.008 (1.010-1.030); Urine Urobilinogen Negative (Negative)
[2019-04-05 21:54] LABS: Urine Benzodiazepine Screen None Detected (None Detect); Urine Opiates Screen None Detected (None Detect)
--- NOTE | 2019-04-05 23:11 | ED ---
Progress - Progress Note Progress Note: Patient is received as a sign-out from Dr. Johnson to Dr. Roman at 2200 shift change pending disposition of this MH patient. 6 - potato bucker discussed patient's case with Dr. Roman. Patient had come in to ED for MHE as he had been having paranoid thoughts. However, the patient is now stating that these paranoid thoughts have since resolved. Patient to be discharged to home with outpatient mental health follow-up. Re-Evaluation - Re-Evaluation First Eval Re-Evaluation Time: 22:46 Comment: 6 - potato bucker discussed patient's case with Dr. Roman. Patient had come in to ED for MHE as he had been having paranoid thoughts. However, the patient is now stating that these paranoid thoughts have since resolved. Patient to be discharged to home with outpatient mental health follow-up. Course/Dx - Diagnoses Provider Diagnoses: Paranoid Discharge ED - Sign-Out/Discharge Documenting (check all that apply): Patient Departure - discharge - Discharge Plan Condition: Stable Disposition: HOME Referrals: Beatriz Tavarez MD [Primary Care Provider] - - Billing Disposition and Condition Condition: STABLE Disposition: Home - Attestation Statements Document Initiated by Scribe: Yes Documenting Scribe: EAGLE CHEN Provider For Whom Tj is Documenting (Include Credential): MIK ROMAN MD Scribe Attestation: EAGLE Zhang, scribed for MIK ROMAN MD on 04/06/19 at 0054. Scribe Documentation Reviewed: Yes Provider Attestation: The documentation as recorded by the EAGLE london accurately reflects the service I personally performed and the decisions made by me, MIK ROMAN MD Status of Scribe Document: Viewed
[2019-04-05 23:23] VITALS: BP 138/90
== END 2019-04-05 23:22 | disposition home or self-care (01) ==
LOC: ED 18:36
DX: F22 Delusional disorders (principal); F41.9 Anxiety disorder, unspecified; F43.10 Post-traumatic stress disorder, unspecified; F32.9 Major depressive disorder, single episode, unspecified; Z87.891 Personal history of nicotine dependence
CPT/HCPCS: 36415; 80053; 80307; 80320; 80329; 81003; 84443; 85025; 99284; G0480